=== PATIENT | female | born 1945 | race African-American/Black ===

== ENCOUNTER 2017-12-06 02:56 | Inpatient (IN) | payer MEDICARE ==
[2017-12-06] MEDS ORDERED: Lorazepam 2 MG/ML VIAL ONE (03:02)
[2017-12-06] MEDS ORDERED: Albuterol Sulfate 2.5 mg/3 ml Neb ONE (03:08)
[2017-12-06 03:24] LABS: Actual Bicarbonate (HCO3a) 25.2 mEq/L (22-26); CO2 Tension 49.4 mmHg (35.0-45.0); O2 Tension (PaO2) 137.2 mmHg (80.0-100.0); pH, Arterial 7.33 (7.35-7.45)
[2017-12-06 03:25] LABS: Analyzer IN Cardio ER; Base Excess (BEa) -1.2 mEq/L (0 (+/-) 2.5); Calcium, Ionized 1.2 mmol/L (1.12-1.30); Hemoglobin (Hb) 12.4 g/dL (12.0-16.0)
[2017-12-06 03:26] LABS: Puncture Site LRA
[2017-12-06 03:38] LABS: Eosinophils 4 % (0-10); Hemoglobin 12.3 g/dL (12.0-16.0); Lymphocytes 62 % (21-51); MDiff Complete? YES; Macrocytosis SLIGHT = 6-15 cells (100X) (0-5/hpf); Mean Corpuscular Hemoglobin 34.4 pg (27.0-31.0); Mean Platelet Volume 5.6 fL (7.4-10.4); Monocytes 5 % (0-10); Neutrophil 24 % (42-75); PLT Morphology Comment Appears Adequate; Platelet Count 378 thou/uL (130-400); RBC Distribution Width 11.3 % (11.5-14.5); Reactive Lymphocytes 5 % (0-10); Red Blood Cell (RBC) Count 3.57 mill/uL (4.20-5.40)
[2017-12-06 03:41] LABS: ALT (SGPT) 11 U/L (8-55); AST (SGOT) 18 U/L (5-34); Albumin 4.1 g/dL (3.4-4.8); Alkaline Phosphatase 103 U/L (40-150); Anion Gap 12 mmol/L (10-20); BUN (Urea Nitrogen) 13 mg/dL (9.8-20.1); Bilirubin, Total 0.5 mg/dL (0.2-1.2); Calc. Creatinine Clearance 0 mL/min (70-130); Calcium 9.1 mg/dL (7.8-10.44); Carbon Dioxide 27 mmol/L (23-31); Chloride 104 mmol/L (98-107); Estimated GFR-MDRD 81; Globulin 3.7 g/dL (2.4-3.5); Glucose 136 mg/dL (83-110); Potassium 3.5 mmol/L (3.5-5.1); Protein, Total 7.8 g/dL (6.0-8.3); Sodium 139 mmol/L (136-145)
[2017-12-06 03:44] LABS: CKMB 1.1 ng/mL (0-6.6); Troponin I Less than 0.010 ng/mL (< 0.028)
[2017-12-06 05:38] VITALS: BMI 15.8
[2017-12-06] MEDS ORDERED: Ondansetron HCl/PF 4 MG/2 ML Vial IVP PRN (06:04)
[2017-12-06] MEDS ORDERED: Ondansetron ODT 4 MG TAB PO PRN (06:04)
[2017-12-06] MEDS ORDERED: cloNIDine 0.1 MG TAB PO PRN (06:04)
[2017-12-06] MEDS ORDERED: hydrALAZINE 20 MG/ML VIAL SLOW IVP PRN (06:04)
[2017-12-06] MEDS ORDERED: Benzonatate 100 MG CAP PO PRN (06:04)
[2017-12-06] MEDS ORDERED: Acetaminophen 500 MG TAB PO PRN (06:04)
[2017-12-06] MEDS ORDERED: Mometasone/Formoterol 120 PUFF INHALER INH SCH (06:30)
--- NOTE | 2017-12-06 06:34 | HP ---
PRIMARY CARE PHYSICIAN: Dr. Quentin Russell at [facility]. CHIEF COMPLAINT: Shortness of breath. HISTORY OF PRESENT ILLNESS: This is a 72-year-old female who presents to [facility] emergency department complaining of sudden onset of shortness of breath at ho wi. The patient apparently was awakened from sleep. After experiencing the shortness of breath at [place] point EMS personnel were notified. The patient was apparently attempting to use her home nebuli zer for relief, but this was unsuccessful. The patient with a known history of chronic obstructive p ulmonary disease and asthma, but does not use home oxygen. EMS personnel arrived at which point the patient was placed on DuoNeb therapy x3, as well as treated with magnesium sulfate 2 grams and Solu-M edrol 125. The patient also received subcutaneous epinephrine en route. The patient was placed on B iPAP noninvasive mechanical ventilation in the emergency room. After a portable chest x-ray showed c hronic changes and hyperinflation of bilateral lung maier. The patient received additional albutero l sulfate and Ativan in the emergency room. The patient was initially noted tachypneic and hypoxic w ith tachycardia, improving with BiPAP noninvasive mechanical ventilation. The patient denied any spe cific fever, chills, exposure history or family members with illness. The patient denies any specifi c chest pain, jaw or left arm discomfort. The patient denied a productive cough, lower extremity swe lling, but the family has noted the patient's decreased activity tolerance becoming short of breath w ith minimal exertion. PAST MEDICAL HISTORY: 1. Acute/chronic hypoxic respiratory failure. 2. Chronic obstructive pulmonary disease. 3. Question of asthma. 4. Hypertension. PAST SURGICAL HISTORY: Reviewed and negative. CURRENT MEDICATIONS: Amlodipine 10 mg 1 tab p.o. daily. The rest of the home medications will need to be confirmed with family members in the a.m. ALLERGIES: No known drug allergies. FAMILY HISTORY: No inheritable diseases per patient report. SOCIAL HISTORY: No current alcohol, tobacco or illicit drug use. Accompanied by her son in the [facility] room. REVIEW OF SYSTEMS: The following complete review of systems was negative, unless otherwise mentioned in the HPI or below: Constitutional: Weight loss or gain, ability to conduct usual activities. Skin: Rash, itching. Eyes: Double vision, pain. ENT/Mouth: Nose bleeding, neck stiffness, pain, tenderness. Cardiovascular: Palpitations, dyspnea on exertion, orthopnea. Respiratory: Shortness of breath, wheezing, cough, hemoptysis, fever or night sweats. Gastrointestinal: Poor appetite, abdominal pain, heartburn, nausea, vomiting, constipation, or diarrhea. Genitourinary: Urgency, frequency, dysuria, nocturia. Musculoskeletal: Pain, swelling. Neurologic/Psychiatric: Anxiety, depression. Allergy/Immunologic: Skin rash, bleeding tendency. PHYSICAL EXAMINATION: VITAL SIGNS: On admission, blood pressure 131/73, pulse 100, respiratory rate 33, temperature 98 de grees Fahrenheit, O2 saturation 100% on BiPAP noninvasive mechanical ventilation. HEENT: Pupils are equal, round, and reactive to light and accommodation. Extraocular muscles are in tact. No scleral icterus, no conjunctival injection. Nares patent. OP is clear. Teeth in fair rep air. Oral mucosa dry appearing. NECK: Supple, no cervical adenopathy, no thyromegaly, no carotid bruits, no JVD appreciated. Cervic al spine with full active and passive range of motion. No meningeal signs appreciated. CHEST: Diminished breath sounds in bilateral lung maier with occasional expiratory wheezing. Prolo nged expiratory phase noted. CARDIOVASCULAR: S1, S2 with tachycardia. Heart sounds are distant. No gallop or rub appreciated. ABDOMEN: Flat, soft, nontender, nondistended. Bowel sounds are positive in all 4 quadrants. There is no hepatosplenomegaly, no abdominal bruits, no rebound or guarding appreciated. EXTREMITIES: Warm and dry with fair turgor. No clubbing, cyanosis or asymmetric edema appreciated. Generalized muscle atrophy noted. Pulses are palpable distally at the dorsalis pedis, posterior tib ial, and popliteal arteries bilaterally. Capillary refill less than 2 seconds. NEUROLOGIC: Cranial nerves II-XII are grossly intact. No focal or lateralizing signs appreciated. PERTINENT LABORATORY AND X-RAY FINDINGS: Sodium 139, potassium 3.5, chloride 104, CO2 of 27, BUN 13, creatinine 0.83, estimated GFR 81, glucose 136, calcium 9.1. LFTs within normal limits. Troponin I negative x1. BNP less than 10. Albumin 4.1. CBC showed a white blood cell count 8.0, hemoglobin 1 2, hematocrit 37, MCV 104, platelet count 378 with 24% neutrophils, 62% lymphocytes. ABG dated 12/06 showed a pH of 7.33, pCO2 of 49, pO2 137, bicarbonate 25, O2 saturation 99% on BiPAP noninvasiv e mechanical ventilation with FiO2 of 50%. Portable chest x-ray dated 12/06/2017 by my interpretati on shows hyperinflation of bilateral lung maier with flattening of the diaphragms. Chronic changes noted. No acute infiltrate identified. EKG dated 12/06/2017 by my interpretation sinus tachycardia with heart rates in the 100s. Normal R-wave progression noted in the precordial leads. Normal axis. No acute ST-T wave changes appreciated. ASSESSMENT AND PLAN: 1. Acute hypoxic respiratory failure. The patient will be admitted to the Intermediate Care Unit. We will continue oxygen supplementation to maintain O2 saturations greater than or equal to 90%. Wea n BiPAP noninvasive mechanical ventilation as clinically indicated. See management plan as outlined in #2. 2. Chronic obstructive pulmonary disease exacerbation. Continue oxygen supplementation as stated pr eviously, Solu-Medrol 40 mg IV q.6h., Dulera two puffs inhaled b.i.d., DuoNebs q.4h., Levaquin 750 m g p.o. daily. 3. Hypertension. Resume home blood pressure regimen once confirmed with family members. Clonidine and hydralazine p.r.n. systolic greater than or equal to 170. 4. Macrocytosis. We will check B12 and folate level in the a.m. No specific evidence of an acute a nemia. Likely chronic condition. 5. Prophylaxis. Sequential compression devices while in bed. Pepcid 20 mg p.o. b.i.d. Update Pneu movax vaccination prior to discharge. 6. Code status is full. Surrogate medical decision maker is the patient's son.
[2017-12-06] MEDS ORDERED: Spiriva 18 MCG CAP (Box of 5 Caps) INH SCH (07:00)
[2017-12-06] MEDS ORDERED: Ipratropium Bromide 2.5 ml Neb NEB SCH (07:00)
--- NOTE | 2017-12-06 08:26 | RAD ---
AP VIEW CHEST: HISTORY: Dyspnea. FINDINGS: AP view chest is obtained on 12/06/17. Comparison is made to previous exam from 12/15/15. AP view chest demonstrates aeration and air trapping compatible with changes of COPD. Some calcifica tion of the aorta is seen. Prominent interstitial markings seen throughout the lungs. Pulmonary vas cular congestion is seen. IMPRESSION: Air trapping and changes of chronic obstructive pulmonary disease with pulmonary vascular congestion also noted. No evidence of effusions seen. POS: [facility]
[2017-12-06] MEDS ORDERED: Prevnar 13-Val Conj/PF 0.5 ML SYRINGE IM ONE (09:00)
[2017-12-06] MEDS ORDERED: Famotidine 20 MG TAB PO SCH (09:00)
[2017-12-06] MEDS ORDERED: guaiFENesin ER 600 MG TAB PO SCH (11:00)
--- NOTE | 2017-12-06 12:56 | PDOC.PN ---
- Subjective Encounter Start Date: 12/06/17 Encounter Start Time: 11:00 Subjective: no sob, feels better, is off bipap - Objective Resuscitation Status: Resuscitation Status FULL:Full Resuscitation MAR Reviewed: Yes Vital Signs & Weight: Vital Signs (12 hours) Temp Pulse Resp BP Pulse Ox 12/06/17 12:53 97 16 96 12/06/17 11:35 98.7 F 95 25 H 113/64 96 12/06/17 10:01 87 16 95 12/06/17 08:00 97.0 F L 87 16 98 12/06/17 07:48 98.1 F 87 28 H 89/53 L 100 12/06/17 06:04 95 12/06/17 05:15 98.0 F 93 24 H 127/70 97 Weight Admit Weight 89 lb 9.6 oz Weight 89 lb 9.6 oz Result Diagrams: 12/06/17 03:06 12/06/17 03:06 Phys Exam - Physical Examination HEENT: PERRLA, moist MMs Neck: no JVD, supple Respiratory: no wheezing, no rales rhonchi+ Cardiovascular: RRR, no significant murmur Gastrointestinal: soft, non-tender, positive bowel sounds Musculoskeletal: no edema, pulses present Neurological: non-focal, moves all 4 limbs Psychiatric: normal affect, A&O x 3 Dx/Plan (1) Acute respiratory failure with hypoxia Code(s): J96.01 - ACUTE RESPIRATORY FAILURE WITH HYPOXIA Status: Acute (2) Asthma exacerbation Code(s): J45.901 - UNSPECIFIED ASTHMA WITH (ACUTE) EXACERBATION Status: Acute Qualifiers: Asthma severity: moderate (3) HTN (hypertension) Code(s): I10 - ESSENTIAL (PRIMARY) HYPERTENSION Status: Chronic Qualifiers: Hypertension type: essential hypertension Qualified Code(s): I10 - Essential (primary) hypertension - Plan is on levaquin, solumedrol, nebs -: hemostable -: is off bipap -: may tx to medical floor -: she has never smoked in her life, has h/o chr asthma * . Review of Systems - Medications/Allergies Allergies/Adverse Reactions: Allergies Allergy/AdvReac Type Severity Reaction Status Date / Time No Known Drug Allergies Allergy Verified 12/06/17 05:40 Medications: Current Medications Acetaminophen (Tylenol) 1,000 mg PO Q6H PRN PRN Reason: Headache/Fever or Mild Pain Albuterol/Ipratropium (Duoneb) 3 ml NEB [id number] PRN PRN Reason: SOB &/or Wheezing Albuterol/Ipratropium (Duoneb) 3 ml NEB [id number] [facility] Last Admin: 12/06/17 12:53 Dose: 3 ml Clonidine (Catapres) 0.1 mg PO Q4H PRN PRN Reason: Systolic BP > 180 Guaifenesin (Mucinex) 1,200 mg PO Q12HR [facility] Guaifenesin (Mucinex) 1,200 mg PO NOW [facility] Stop: 12/06/17 13:00 Last Admin: 12/06/17 12:09 Dose: 1,200 mg Hydralazine HCl (Apresoline) 10 mg SLOW IVP Q4H PRN PRN Reason: Systolic BP > 180 Levofloxacin (Levaquin) 750 mg PO DAILY [facility] Last Admin: 12/06/17 09:09 Dose: 750 mg Ondansetron HCl (Zofran Odt) 4 mg PO Q6H PRN PRN Reason: Nausea/Vomiting Ondansetron HCl (Zofran) 4 mg IVP Q6H PRN PRN Reason: Nausea/Vomiting Prednisone (Prednisone) 40 mg PO QAM[facility] Stop: 12/11/17 08:01
--- NOTE | 2017-12-06 13:27 | CON ---
DATE OF CONSULTATION: 12/06/2017 SERVICE: Pulmonary Medicine. REASON FOR CONSULTATION: IMCU patient. HISTORY OF PRESENT ILLNESS: The patient is a 72-year-old -[place] female with past medical history significant for COPD. She follows with pulmonary over at [facility]. She was in her usual state of health until she had a sudden onset of shortness of breath. This woke her up from sleep. She was brought to the emergency department where she was given some nebulized medications, steroids, and antibiotic. She was put on some oxygen. She had abrupt improvement in the way that she was breathing. At this point, she tells me that she has returned to her usual state of health and has no complaints of fevers, chills, nausea, vomiting or chest discomfort. Overnight, she did not have any significant events. She has been off BiPAP since being here. PAST MEDICAL HISTORY: 1. COPD. 2. Asthma, possible. 3. Hypertension. PAST SURGICAL HISTORY: None. ALLERGIES: No known drug allergies. MEDICATIONS: List of her inpatient medications were reviewed. Multiple updates were made including deescalating to p.o. antibiotics, decreasing steroids, and decreasing interval of breathing treatments. FAMILY HISTORY: Noncontributory. SOCIAL HISTORY: Negative for alcohol, tobacco, or illicit drug use currently. She has no exposure to chemicals, dust asbestos or tuberculosis. REVIEW OF SYSTEMS: General, head, ears, eyes, nose, throat, cardiovascular, respiratory, GI, , musculoskeletal, neurologic and skin is negative as stated in the HPI. PHYSICAL EXAMINATION: VITAL SIGNS: Afebrile, pulse 87, blood pressure 89/53, respirations 28, saturation 100% on 2 liters nasal cannula. GENERAL: The patient is awake, alert, no apparent distress. LUNGS: There is reduced air entry. Rhonchi and crackles are both present. There is also slightly prolonged expiratory phase with wheezing. HEART: Normal rate and regular. ABDOMEN: Soft, nontender, nondistended. Bowel sounds are positive. MUSCULOSKELETAL: No cyanosis or clubbing. There is no pitting in the bilateral lower extremities. NEUROLOGIC: Grossly nonfocal. LABORATORY DATA: WBC 8.0, hemoglobin 12.3, platelets 376,000. Neutrophil count is 124% and lymphocyte count is 62%. A pH 7.33, pCO2 49, pO2 137. This was on BiPAP with 50% FiO2. Basic metabolic profile and liver function studies are unremarkable. Cardiac enzymes negative x1. BNP is below the assay limit of 10. IMAGING: Chest x-ray demonstrates findings consistent with air trapping and pulmonary vascular congestion is apparent. No pleural effusions or other acute abnormalities identified. ASSESSMENT: 1. Chronic obstructive pulmonary disease with acute exacerbation, returned to baseline. 2. Acute hypoxic and hypercapnic respiratory failure, mild. PLAN: We will continue antibiotics, nebulized medications and steroids. I will deescalate all three of these things. From my perspective, she is stable for transition out of [facility] to the medical unit. Pulmonary will continue to follow along while she remains in this location. The Dulera will be suspended while she is on these IV medications. 70 minutes have been devoted to this patient in various activities. I personally reviewed all imaging studies and laboratory data noted within this document. For fifty percent of this time, I was interacting with the patient at the bedside or coordinating care with the care team. For the remainder of the time I was immediately available to the patient in the hospital unit. VENKAT
[2017-12-06] MEDS: guaiFENesin ER 600 MG TAB PO SCH (21:53)
[2017-12-07 05:26] LABS: Band 3 % (5-11); Hemoglobin 11.6 g/dL (12.0-16.0); Lymphocytes 31 % (21-51); MDiff Complete? YES; Mean Corpuscular HGB CONC 32.7 g/dL (32.0-36.0); Mean Platelet Volume 6.2 fL (7.4-10.4); Monocytes 9 % (0-10); Neutrophil 56 % (42-75); PLT Morphology Comment Appears Adequate; Platelet Count 376 thou/uL (130-400); RBC Distribution Width 11.5 % (11.5-14.5); Red Blood Cell (RBC) Count 3.39 mill/uL (4.20-5.40); White Blood Cell (WBC) Count 6.9 thou/uL (4.8-10.8)
[2017-12-07 05:28] LABS: Anion Gap 8 mmol/L (10-20); BUN (Urea Nitrogen) 15 mg/dL (9.8-20.1); Calc. Creatinine Clearance 42 mL/min (70-130); Calcium 9.4 mg/dL (7.8-10.44); Carbon Dioxide 28 mmol/L (23-31); Chloride 105 mmol/L (98-107); Estimated GFR-MDRD Greater than 90; Glucose 96 mg/dL (83-110); Potassium 3.8 mmol/L (3.5-5.1); Sodium 137 mmol/L (136-145)
[2017-12-07 05:58] LABS: Folate (Folic Acid) 5.7 ng/mL (7.0-31.4)
[2017-12-07 07:28] VITALS: BP 136/74; TEMP 98.4
[2017-12-07] MEDS: guaiFENesin ER 600 MG TAB PO SCH (07:33)
[2017-12-07] MEDS ORDERED: predniSONE 20 MG TAB PO SCH (08:00)
[2017-12-07] MEDS ORDERED: Folic Acid 1 MG TAB PO SCH (09:00)
--- NOTE | 2017-12-07 10:11 | PRG ---
DATE OF SERVICE: 12/07/2017 SERVICE: Pulmonary Medicine. INTERVAL HISTORY: The patient is doing well. She indicates to me that she is back to her usual state of health. She is breathing comfortably. She is off of oxygen. There were no overnight events. PHYSICAL EXAMINATION: VITAL SIGNS: Afebrile, pulse 90, blood pressure 136/74, respirations 20, saturation 95% on room air. GENERAL: The patient is awake, alert, no apparent distress. LUNGS: Decent air entry bilaterally. There is minimal prolongation of the expiratory phase. There are minimal crackles present in the bibasilar region, but this much improved. No rhonchi. HEART: Normal rate, regular. ABDOMEN: Soft, nontender, nondistended. Bowel sounds are positive. MUSCULOSKELETAL: No cyanosis or clubbing. SKIN: Tenting throughout. GENITOURINARY: No Fan. NEUROLOGIC: Grossly nonfocal. LABORATORY DATA: WBC 6.9, hemoglobin 11.6, platelets 376,000. Band count is only 3%. Lymphocyte count has improved to 31%. Basic metabolic profile is completely unremarkable. Folate 5.7. B12 is 331. ASSESSMENT: 1. Acute hypoxic and hypercapnic respiratory failure. 2. Chronic obstructive pulmonary disease with acute exacerbation, returned to baseline. 3. Macrocytic anemia. PLAN: Antibiotics, nebulized medications and steroids can be continued. The steroids, antibiotics will be discontinued after a total duration of 5 days. From my perspective, she is stable for transition out of the hospital. Folate will be initiated for the low levels. She will need to resume her home inhalers in the outpatient setting. She can be formally evaluated for COPD in that location and consider for long-acting therapy. VENKAT
--- NOTE | 2017-12-08 11:05 | DIS ---
DATE OF DISCHARGE: 12/07/2017 DISCHARGE DISPOSITION: Home. FOLLOWUP: 1. Follow up with primary care physician, Dr. Bermudez at [facility]. 2. Follow up with Pulmonary, Dr. Reno after 1-2 weeks. ALLERGIES: No known drug allergies. DISCHARGE MEDICATIONS: Folic acid 1 mg twice a day, Levaquin 500 mg daily for the next 3 days, predn isone taper. All other home medications were resumed. BRIEF HOSPITAL COURSE: The patient is a 72-year-old female with COPD who presented to the hospital w ith shortness of breath. Please refer to the history and physical dated 12/06/2017 for further detai ls. The patient was admitted to the hospital with a diagnosis of acute hypoxic respiratory failure second erika to chronic obstructive pulmonary disease exacerbation. She was started on noninvasive positive p ressure ventilation and was monitored in the intermediate care unit. She showed good response with s teroids, nebulizer treatments, and antibiotics. She was transferred to the medical floor today. Torajendra sandoval, the patient has been cleared by Pulmonary for discharge. FINAL DIAGNOSES: 1. Acute hypoxic and hypercapnic respiratory failure secondary to chronic obstructive pulmonary dise ase exacerbation, improved. 2. Hypertension. 3. Folic acid deficiency. Folic acid was 5.7. 4. Chronic kidney disease stage 2. 5. Moderate protein calorie malnutrition. SIGNIFICANT LABORATORY DATA AND IMAGING DATA: 1. ABG showed pH 7.33 with pCO2 of 49.4, pO2 of 137.2. 2. Folic acid was 5.7. Vitamin B12 331. 3. Troponins were normal. 4. Sodium was 139, potassium was 3.5, chloride of 104, bicarbonate 27. 5. D-dimer was negative. 6. CBC showed WBC 8.0 with hemoglobin 12.3, hematocrit 37.2, and platelet count of 378. 7. Chest x-ray was negative for infiltrate. It showed changes consistent with COPD with possible pu lmonary vascular congestion. Total time coordinating the discharge of this patient was 33 minutes. Prescriptions were sent to [facility]. The patient was extensively counseled to be compliant with nebulizer treatmen ts.
== END 2017-12-07 14:59 | disposition home or self-care (01) | DRG 189 ==
LOC: ERS 02:56 → IMCU/EMU 04:29 → T4-A 12:19
PROVIDERS: ADMIT Family Medicine; ATTEND Family Medicine
PROC: 5A09357 Assistance with Respiratory Ventilation, Less than 24 Consecutive Hours, Continuous Positive Airway Pressure (ICD-10-PCS; principal; 2017-12-06)
DX: J96.01 Acute respiratory failure with hypoxia (principal); E44.0 Moderate protein-calorie malnutrition; D64.9 Anemia, unspecified; J44.1 Chronic obstructive pulmonary disease with (acute) exacerbation; J96.02 Acute respiratory failure with hypercapnia; I12.9 Hypertensive chronic kidney disease with stage 1 through stage 4 chronic kidney disease, or unspecified chronic kidney disease; N18.2 Chronic kidney disease, stage 2 (mild)
CPT/HCPCS: 36415; 71045; 80048; 80053; 82553; 82607; 82746; 82805; 83880; 84484; 85007; 85025; 85027; 85379; 93005; 94640; 94660; 96374; G8978-GP-CK; G8979-GP-CK; G8980-GP-CK; J2060; J7506; J7611; J7620

== ENCOUNTER 2017-12-30 10:42 | Inpatient (IN) | payer MEDICARE ==
[2017-12-30] MEDS ORDERED: methylPREDNISolone Sod Succ/PF 125 MG/2 ML VIAL ONE (11:20)
[2017-12-30 11:28] LABS: #Basophils 0.1 thou/uL (0.0-0.2); #Eosinphils 0.5 thou/uL (0.0-0.7); #Lymphocytes 2.4 thou/uL (1.20-3.40); #Monocytes 0.5 thou/uL (0.11-0.59); #Neutrophils 1.9 thou/uL (1.40-6.50); %Eosinophils 9.8 % (0.0-10.0); %Lymphocytes 44.4 % (21.0-51.0); %Monocytes 8.9 % (0.0-10.0); %Neutrophils 35.8 % (42.0-75.0); Hemoglobin 13.2 g/dL (12.0-16.0); Mean Corpuscular HGB CONC 34.1 g/dL (32.0-36.0); Mean Corpuscular Hemoglobin 34.9 pg (27.0-31.0); Mean Platelet Volume 6.4 fL (7.4-10.4); Platelet Count 404 thou/uL (130-400); RBC Distribution Width 11.9 % (11.5-14.5); Red Blood Cell (RBC) Count 3.79 mill/uL (4.20-5.40); White Blood Cell (WBC) Count 5.3 thou/uL (4.8-10.8)
[2017-12-30 11:53] LABS: CKMB 1.2 ng/mL (0-6.6); Troponin I Less than 0.010 ng/mL (< 0.028)
[2017-12-30] MEDS ORDERED: ISOVUE-370 76%-LOCM 1 ML ONE (12:14)
[2017-12-30 13:18] LABS: Albumin 4.4 g/dL (3.4-4.8)
[2017-12-30 13:19] LABS: Chloride 101 mmol/L (98-107); Magnesium 2.3 mg/dL (1.6-2.6); Potassium 4.2 mmol/L (3.5-5.1); Sodium 136 mmol/L (136-145)
[2017-12-30 13:20] LABS: Calcium 9.8 mg/dL (7.8-10.44)
[2017-12-30 13:21] LABS: Globulin 3.8 g/dL (2.4-3.5); Glucose 100 mg/dL (83-110); Protein, Total 8.2 g/dL (6.0-8.3)
[2017-12-30 13:22] LABS: Anion Gap 15 mmol/L (10-20); Bilirubin, Total 0.7 mg/dL (0.2-1.2); Carbon Dioxide 24 mmol/L (23-31)
[2017-12-30 13:23] LABS: Alkaline Phosphatase 84 U/L (40-150)
[2017-12-30 13:24] LABS: Calc. Creatinine Clearance 0 mL/min (70-130); Estimated GFR-MDRD 86
[2017-12-30 13:25] LABS: BUN (Urea Nitrogen) 12 mg/dL (9.8-20.1)
[2017-12-30 13:26] LABS: ALT (SGPT) 11 U/L (8-55); AST (SGOT) 18 U/L (5-34)
[2017-12-30 13:27] LABS: CK (CPK) 90 U/L (29-168)
--- NOTE | 2017-12-30 13:42 | RAD ---
SINGLE VIEW OF THE CHEST: Registered Radiation Therapist 12/05/17. History Shortness of breath with tachypnea. FINDINGS: A single view of the chest shows a normal-size cardiomediastinal silhouette with atherosclerotic calc ifications seen in the aorta. There is no evidence of consolidation, mass, or pleural effusion. Deg enerative changes and sclerotic curvature of the spine are seen. IMPRESSION: No evidence of acute cardiopulmonary disease. POS: [facility]
--- NOTE | 2017-12-30 15:36 | CT ---
CT PULMONARY ANGIOGRAM WITH IV CONTRAST AND 3D POSTPROCESSING 12/30/17 HISTORY: Shortness of breath. Chest pain FINDINGS: There is good contrast opacification of the pulmonary arterial vasculature without filling defects to suggest pulmonary embolism. The thoracic aorta is well opacified without aneurysmal dissection. No pleural or pericardial effusions are seen. There is biapical scarring. No focal areas of consolidatio n or lung masses are identified. There are degenerative changes in the spine. IMPRESSION: No CT evidence of pulmonary embolism. POS: [facility]
[2017-12-30] MEDS ORDERED: Loratadine 10 MG TAB PO PRN (15:43)
[2017-12-30] MEDS ORDERED: hydrALAZINE 20 MG/ML VIAL SLOW IVP PRN (15:43)
[2017-12-30] MEDS ORDERED: Senokot 8.6 MG TAB PO PRN (15:43)
[2017-12-30] MEDS ORDERED: Calcium Carbonate 500 MG ChewTAB PO PRN (15:43)
[2017-12-30] MEDS ORDERED: Benzonatate 100 MG CAP PO PRN (15:43)
[2017-12-30] MEDS ORDERED: Bisacodyl 5 MG TAB PO PRN (15:43)
[2017-12-30] MEDS ORDERED: Mag-Al 1200 mg/1200 mg/30 ML UDCUP PO PRN (15:43)
[2017-12-30] MEDS ORDERED: traMADol HCl 50 MG TAB PO PRN (15:43)
[2017-12-30] MEDS ORDERED: Lorazepam 1 MG TAB PO PRN (15:43)
[2017-12-30] MEDS ORDERED: Acetaminophen 325 MG TAB PO PRN (15:43)
[2017-12-30] MEDS ORDERED: Nitroglycerin 0.4 MG TAB (25 Tab Bottle) SL PRN (15:43)
[2017-12-30] MEDS ORDERED: Ondansetron HCl/PF 4 MG/2 ML Vial IVP PRN (15:43)
[2017-12-30] MEDS ORDERED: cloNIDine 0.1 MG TAB PO PRN (15:43)
[2017-12-30] MEDS ORDERED: Diabetic Tussin 200 MG/10 ML UDCUP PO PRN (15:43)
[2017-12-30 16:19] VITALS: BMI 17.9
[2017-12-30 16:41] LABS: Lactic Acid 2.3 mmol/L (0.5-2.2)
--- NOTE | 2017-12-30 17:57 | HP ---
DATE OF ADMISSION: 12/30/2017 PRIMARY CARE PHYSICIAN: Dr. Bermudez at [facility]. CHIEF COMPLAINT: Worsening shortness of breath. HISTORY OF PRESENTING ILLNESS: Ms. Suárez is a sweet 72-year-old female with past medical history o f COPD, questionable asthma and hypertension, who presented to the emergency room with the above-ment ioned complaint. History is mainly obtained by the patient herself who was a little bit of a poor hi storian because she is extremely hard of hearing and is tachypneic at this time. Electronic medical records have been reviewed. She was recently admitted to our facility on 12/06/2017 till 12/07/2017 with similar complaints and was diagnosed with acute COPD exacerbation. She was treated with nebuliz ers, steroids, and empiric antibiotics and was seen by Dr. Reno from Pulmonary Medicine as well. She was discharged home in a stable condition at that time. Today, she returns back to the emergency room with same complaints. She states that she has been hav ing shortness of breath since last night with some atypical chest pain. She has a nebulizer and inha ler at home which she has been using, but has not been able to get any relief from them. She also re ports that she feels that she has some sort of chest infection as she complains of lots of mucus that is coming up. She reports that every time she tries to eat or drink, she starts to cough. She sonya es any lower extremity swelling. She denies any orthopnea or PND. She denies any jaw claudication o r paraesthesias of the arm. She denies any fever, chills, or sick contacts. In the emergency room upon presentation, she was hypoxic with saturation of 85% on room air. She was started on BiPAP after being diagnosed with acute COPD exacerbation. She was given nebulizers and s teroids in the emergency room as well and is now being admitted for further evaluation and care. Sin ce she has been up on the floor, she has been weaned off of BiPAP and is actually feeling much better , just on nasal cannula. Because of recurrent admissions for the same complaint, she has undergone a CT angio to rule out pulm onary embolism and it is negative for the same. PAST MEDICAL HISTORY: 1. Hypertension. 2. COPD versus asthma versus both. 3. History of hypoxic respiratory failures in the past, requiring intubations. 4. Chronic kidney disease stage 2. 5. Folic acid deficiency. 6. Moderate protein calorie malnutrition. PAST SURGICAL HISTORY: Reviewed and negative. ALLERGIES: No known medication allergies. FAMILY HISTORY: No significant family history per the patient report. SOCIAL HISTORY: No history of drug, tobacco or alcohol abuse. She lives with her son. HOME MEDICATION: Not updated yet, but she was discharged on the following medications few weeks ago; Protonix 40 mg daily, DuoNebs as needed, folic acid 1 mg daily, Symbicort 160/4.5 one inhalation b.i .d., amlodipine 10 mg daily. REVIEW OF SYSTEMS: The following complete review of systems was negative, unless otherwise mentioned in the HPI or below: Constitutional: Weight loss or gain, ability to conduct usual activities. Skin: Rash, itching. Eyes: Double vision, pain. ENT/Mouth: Nose bleeding, neck stiffness, pain, tenderness. Cardiovascular: Palpitations, dyspnea on exertion, orthopnea. Respiratory: Shortness of breath, wheezing, cough, hemoptysis, fever or night sweats. Gastrointestinal: Poor appetite, abdominal pain, heartburn, nausea, vomiting, constipation, or diarr hea. Genitourinary: Urgency, frequency, dysuria, nocturia. Musculoskeletal: Pain, swelling. Neurologic/Psychiatric: Anxiety, depression. Allergy/Immunologic: Skin rash, bleeding tendency. It is negative except as those mentioned in the history and physical. LABORATORY DATA AND IMAGING DATA: Her CBC is unremarkable. Platelet count is elevated to 404. Seru m chemistries unremarkable. Lactic acid is 2.5. Cardiac enzymes and BNP is normal. Chest x-ray by my review has no evidence to suggest pulmonary edema, effusion or infiltrate. CT angio of the thorax is negative for pulmonary embolism or any masses. No consolidation seen. A 12-lead EKG reviewed by myself shows sinus tachycardia at heart rate 103 beats per minute without any acute ST or T-wave emmanuel nges. PHYSICAL EXAMINATION: VITAL SIGNS: Most recent vital signs; temperature 97.9, pulse of 100, respirations 34, saturating 99 % on 3 liters nasal cannula and blood pressure 129/70. GENERAL: No acute distress. She is still tachypneic, but not hypoxic. Awake, alert, oriented x3. HEENT: Mucous membrane is moist and pink. No oropharyngeal exudate or erythema. Head is normocepha lic, atraumatic. Pupils are equal, reactive to light and accommodation. Extraocular movement intact . NECK: Supple without any lymphadenopathy, JVD or bruit. CHEST: Shows decreased breath sounds bilaterally with scattered wheezes on both lungs. She was trip oding when she came to the emergency room, but not anymore. Rate and rhythm is regular without any m urmur, rubs or gallops. ABDOMEN: Soft, nontender, nondistended with positive bowel sounds. EXTREMITIES: Free of any cyanosis, clubbing, or edema. NEUROLOGIC: Examination is nonfocal. SKIN: Free of any rashes or bruises. Feels warm and dry to touch. PSYCHIATRIC: Normal affect. Code status: FULL CODE. Discussed with the patient. IMPRESSION AND PLAN: 1. Acute hypoxic respiratory failure. This is secondary to acute chronic obstructive pulmonary dise ase exacerbation. PE and ACS have been ruled out. The patient does give history of possible aspirat ion and might be having recurrence on an aspiration. 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 She was then weaned off of BiPAP and we will continue with oxygen for now. We will also consult speech therapist for speech, s wallowing, but possible modified barium study to evaluate for silent aspiration. 2. Chronic obstructive pulmonary disease exacerbation. With oxygen supplementation, Solu-Medrol, Du laura, nebs and empiric antibiotics. 3. Hypertension. Resume home medications once confirmed. Add p.r.n. oral clonidine and IV hydralaz ine with parameters for high blood pressure. 4. Macrocytosis. Continue folic acid. 5. Code status: FULL CODE. 6. Deep venous thrombosis and gastrointestinal prophylaxis. DISPOSITION: Ms. Suárez is currently being admitted to the hospital with acute respiratory failure due to acute chronic obstructive pulmonary disease exacerbation. Estimated length of stay is at as t 2-3 midnights. Further management will depend upon her clinical course.
[2017-12-30] MEDS: Mometasone/Formoterol 120 PUFF INHALER INH SCH (18:58)
[2017-12-30] MEDS: guaiFENesin ER 600 MG TAB PO SCH (20:59)
[2017-12-30] MEDS ORDERED: Famotidine 20 MG TAB PO SCH (21:00)
[2017-12-31 04:13] LABS: #Lymphocytes 0.7 thou/uL (1.20-3.40); #Neutrophils 2.1 thou/uL (1.40-6.50); %Basophils 0.9 % (0.0-1.0); %Eosinophils 0.3 % (0.0-10.0); %Monocytes 0.9 % (0.0-10.0); %Neutrophils 72.9 % (42.0-75.0); Hemoglobin 12.4 g/dL (12.0-16.0); Mean Corpuscular HGB CONC 33.3 g/dL (32.0-36.0); Mean Corpuscular Hemoglobin 34.1 pg (27.0-31.0); Mean Platelet Volume 5.8 fL (7.4-10.4); Platelet Count 394 thou/uL (130-400); RBC Distribution Width 11.3 % (11.5-14.5); Red Blood Cell (RBC) Count 3.65 mill/uL (4.20-5.40); White Blood Cell (WBC) Count 2.9 thou/uL (4.8-10.8)
[2017-12-31 04:32] LABS: Anion Gap 14 mmol/L (10-20); BUN (Urea Nitrogen) 18 mg/dL (9.8-20.1); Calc. Creatinine Clearance 44 mL/min (70-130); Calcium 9.2 mg/dL (7.8-10.44); Carbon Dioxide 22 mmol/L (23-31); Chloride 102 mmol/L (98-107); Estimated GFR-MDRD 82; Glucose 139 mg/dL (83-110); Potassium 4.3 mmol/L (3.5-5.1); Sodium 134 mmol/L (136-145)
[2017-12-31] MEDS: Mometasone/Formoterol 120 PUFF INHALER INH SCH ×2 (07:03→18:16)
[2017-12-31] MEDS: Enoxaparin Sodium 40 MG/0.4 ML SYRINGE SC SCH (10:32)
[2017-12-31] MEDS: guaiFENesin ER 600 MG TAB PO SCH ×2 (10:33→21:06)
--- NOTE | 2017-12-31 14:01 | PDOC.PN ---
- Subjective Encounter Start Date: 12/31/17 Encounter Start Time: 14:00 Subjective: feels much better.breathing easier -: no new complaints.still feels that she has cough w food /wATER - Objective MAR Reviewed: Yes Vital Signs & Weight: Vital Signs (12 hours) Temp Pulse Pulse Pulse Resp BP BP 12/31/17 11:14 97.9 F 100 20 12/31/17 10:14 111 H 20 12/31/17 09:23 103 H 126 H 124/65 115/79 12/31/17 08:00 97.3 F L 99 19 12/31/17 07:40 97.3 F L 99 19 12/31/17 07:30 99 113 H 111/64 113/76 12/31/17 07:03 101 H 18 12/31/17 03:57 97.2 F L 98 30 H 12/31/17 02:38 93 22 H BP Pulse Ox Pulse Ox Pulse Ox 12/31/17 11:14 101/53 L 95 12/31/17 10:14 98 12/31/17 09:23 96 93 L 12/31/17 08:00 100 12/31/17 07:40 111/64 100 12/31/17 07:30 98 93 L 12/31/17 07:03 100 12/31/17 03:57 116/64 96 12/31/17 02:38 98 Weight Weight 101 lb 6.602 oz I&O: 12/30/17 12/31/17 01/01/18 06:59 06:59 06:59 Intake Total 950 Output Total 550 Balance 400 Result Diagrams: 12/31/17 03:42 12/31/17 03:42 Additional Labs: labs reviewed EKG Reviewed by me: Yes (NSR on monitor) Phys Exam - Physical Examination Constitutional: NAD thin looking,very hard of hearing HEENT: PERRLA, moist MMs, sclera anicteric, oral pharynx no lesions Neck: no JVD Respiratory: no wheezing, no rales, no rhonchi, clear to auscultation bilateral Cardiovascular: RRR, no significant murmur, no rub Gastrointestinal: soft, non-tender, no distention, positive bowel sounds Musculoskeletal: no edema, pulses present Neurological: non-focal, normal sensation, moves all 4 limbs Psychiatric: normal affect, A&O x 3 Skin: no rash Dx/Plan (1) COPD exacerbation Code(s): J44.1 - CHRONIC OBSTRUCTIVE PULMONARY DISEASE W (ACUTE) EXACERBATION Status: Acute (2) Protein calorie malnutrition Code(s): E46 - UNSPECIFIED PROTEIN-CALORIE MALNUTRITION Status: Acute (3) Acute respiratory failure with hypoxia Code(s): J96.01 - ACUTE RESPIRATORY FAILURE WITH HYPOXIA Status: Acute (4) HTN (hypertension) Code(s): I10 - ESSENTIAL (PRIMARY) HYPERTENSION Status: Chronic Qualifiers: Hypertension type: essential hypertension Qualified Code(s): I10 - Essential (primary) hypertension - Plan PT/OT, speech therapy, respiratory therapy, incentive spirometry, DVT proph w/ lovenox, DVT proph w/SCDs clinically better.stable on O2 by nasal canula -: cont nebs,steroids,dulera,mucinex etc -: nutritionalist consulted for MBS.possible silent aspiration -: no indication of ABx for now.PCCM recs requested -: HD stable. Ok to transfer to medical * . Review of Systems - Review of Systems Constitutional: negative: fever, chills, sweats, weakness, malaise, other Respiratory: Cough, SOB with Excertion, Sputum. negative: Dry, Shortness of Breath, Hemoptysis, Pleuritic Pain, Wheezing Cardiovascular: negative: chest pain, palpitations, orthopnea, paroxysmal nocturnal dyspnea, edema, light headedness, other Gastrointestinal: negative: Nausea, Vomiting, Abdominal Pain, Diarrhea, Constipation, Melena, Hematochezia, Other Genitourinary: negative: Dysuria, Frequency, Incontinence, Hematuria, Retention , Other Musculoskeletal: negative: Neck Pain, Shoulder Pain, Arm Pain, Back Pain, Hand Pain, Leg Pain, Foot Pain, Other Skin: negative: Rash, Lesions, Regulo, Bruising, Other Neurological: negative: Weakness, Numbness, Incoordination, Change in Speech, Confusion, Seizures, Other - Medications/Allergies Allergies/Adverse Reactions: Allergies Allergy/AdvReac Type Severity Reaction Status Date / Time No Known Drug Allergies Allergy Verified 12/30/17 16:21 Medications: Current Medications Acetaminophen (Tylenol) 650 mg PO Q4H PRN PRN Reason: Headache/Fever or Pain Al Hydroxide/Mg Hydroxide (Maalox) 30 ml PO Q6H PRN PRN Reason: Heartburn or Indigestion Albuterol/Ipratropium (Duoneb) 3 ml NEB Q2H PRN PRN Reason: SOB &/or Wheezing Albuterol/Ipratropium (Duoneb) 3 ml NEB [id number] [facility] Last Admin: 12/31/17 10:14 Dose: 3 ml Amlodipine Besylate (Norvasc) 10 mg PO DAILY [facility] Benzonatate (Tessalon) 100 mg PO Q4H PRN PRN Reason: Cough Bisacodyl (Dulcolax) 10 mg PO DAILYPRN PRN PRN Reason: Constipation Calcium Carbonate (Tums) 1,000 mg PO Q4H PRN PRN Reason: Heartburn or Indigestion Clonidine (Catapres) 0.1 mg PO Q4H PRN PRN Reason: Systolic BP > 160 Enoxaparin Sodium (Lovenox) 40 mg SC 0900 [facility] Last Admin: 12/31/17 10:32 Dose: 40 mg Folic Acid (Folvite) 1 mg PO BID [facility] Guaifenesin (Robitussin Sf) 200 mg PO Q4H PRN PRN Reason: Cough Guaifenesin (Mucinex) 1,200 mg PO Q12HR [facility] Last Admin: 12/31/17 10:33 Dose: 1,200 mg Hydralazine HCl (Apresoline) 10 mg SLOW IVP Q4H PRN PRN Reason: Systolic BP > 170 Loratadine (Claritin) 10 mg PO DAILYPRN PRN PRN Reason: Sinus Symptoms Lorazepam (Ativan) 1 mg PO Q4H PRN PRN Reason: Anxiety/Agitation Methylprednisolone Sodium Succinate (Solu-Medrol) 40 mg IVP Q6HR [facility] Last Admin: 12/31/17 10:32 Dose: 40 mg Mometasone Furoate/Formoterol Fumar (Dulera 200 Mcg/5 Mcg Inhaler) 2 puff INH BID-RT [facility] Last Admin: 12/31/17 07:03 Dose: 2 puff Nitroglycerin (Nitrostat) 0.4 mg SL Q5MIN PRN PRN Reason: Chest Pain Ondansetron HCl (Zofran) 4 mg IVP Q6H PRN PRN Reason: Nausea/Vomiting Pantoprazole Sodium (Protonix) 40 mg PO DAILY [facility] Senna (Senokot) 2 tab PO HSPRN PRN PRN Reason: Constipation Tramadol HCl (Ultram) 50 mg PO Q4H PRN PRN Reason: Moderate Pain (4-6)
--- NOTE | 2017-12-31 14:50 | RAD ---
MODIFIED BARIUM SWALLOW IN THE PRESENCE OF A SPEECH THERAPIST: Date: 12/31/17 HISTORY: Dysphagia, unspecified, feeding difficulties. FINDINGS/IMPRESSION: Laryngeal penetration is seen without evidence of tammi aspiration. No persistent pooling of contrast is seen in the vallecula or piriform sinuses. Please see recommendations of the speech therapist for further management. POS: JORGE
--- NOTE | 2017-12-31 17:08 | CON ---
DATE OF CONSULTATION: 12/31/2017 Total of 70 minutes of time spent with the patient, of that greater than 50% was spent with the patie nt or on the patient's unit. HISTORY OF PRESENT ILLNESS: A 72-year-old female, who was admitted yesterday to the hospital with in creasing shortness of breath. She is a patient of Dr. Quentin Russell, who is a international freight forwarder over at [facility]. She was here few weeks ago with a similar admission, at the time, she was taken care of by my partner, Dr. Reno. Yesterday, she came in with increasing shortness of breath, apparently was on BiPAP all night long. She feels better this morning. She says she is back to her baseline. She has had cough and congesti on that is also better. PAST MEDICAL HISTORY: 1. COPD/asthma. 2. Hypertension. 3. Chronic kidney disease, stage 2. 4. Folic acid deficiency. 5. Protein-calorie malnutrition. PAST SURGICAL HISTORY: None. ALLERGIES: None. MEDICATIONS PRIOR TO ADMISSION: ProAir HFA metered dose inhaler as needed, Symbicort 160/4.5 two puf fs twice daily, amlodipine 10 mg daily, prednisone 20 mg daily, pantoprazole 40 mg daily, levofloxaci n 500 mg daily, DuoNeb 4 times daily, folate 1 mg twice daily. SOCIAL HISTORY: She is a never smoker, does not consume alcohol, does not use illicit drugs. FAMILY MEDICAL HISTORY: Unremarkable. REVIEW OF SYSTEMS: No fever, chills, nausea, vomiting, hematemesis, melena, hematochezia, hematuria or dysuria. PHYSICAL EXAMINATION: VITAL SIGNS: Temperature 97.3, pulse 98, respirations 19, O2 sat 100% on 3 liters, blood pressure 11 1/64. GENERAL: She is awake and alert, in no distress. HEENT: Pupils react. Sclerae anicteric. Oropharynx clear. NECK: Without adenopathy or JVD. LUNGS: Clear without wheezing, rhonchi or rales. ABDOMEN: Soft, nontender, nondistended. EXTREMITIES: No clubbing, cyanosis or edema. NEUROLOGIC: Intact. LABORATORY DATA: White blood cell count 2.9, hemoglobin 12, hematocrit 37.4, platelet count 394. So dium 134, potassium 4.3, chloride 102, CO2 of 22, BUN 18, creatinine 0.8, glucose 139, lactate 2.3. IMAGING: CT pulmonary angiogram was negative. Her chest x-ray demonstrates hyperinflation without e vidence of mass, effusion, or infiltrate. She has prominent pulmonary arteries. ASSESSMENT: 1. Asthma/chronic obstructive pulmonary disease with exacerbation. 2. Acute hypoxic respiratory failure, which is improved. PLAN: Agree with nebulization treatments and IV steroids. If she can remain off the BiPAP until thi s afternoon, then I think it is safe to transfer to the floor. She will continue on long-acting beta agonist and inhaled corticosteroids.
[2017-12-31] MEDS: Folic Acid 1 MG TAB PO SCH (21:06)
[2018-01-01] MEDS: Mometasone/Formoterol 120 PUFF INHALER INH SCH ×2 (07:52→18:56)
[2018-01-01] MEDS: guaiFENesin ER 600 MG TAB PO SCH ×2 (08:31→20:22)
[2018-01-01] MEDS: Folic Acid 1 MG TAB PO SCH ×2 (08:32→20:22)
[2018-01-01] MEDS: Enoxaparin Sodium 40 MG/0.4 ML SYRINGE SC SCH (08:32)
[2018-01-01] MEDS: Amlodipine 10 MG TAB PO SCH (08:32)
--- NOTE | 2018-01-01 13:21 | PRG ---
DATE OF SERVICE: 01/01/2018 SUBJECTIVE: The patient is doing better and had no acute complaints today. PHYSICAL EXAMINATION: VITAL SIGNS: Temperature is 98.5, pulse 84, respirations 15, O2 sat 99% on 2 liters. HEENT: Unremarkable. NECK: No JVD. LUNGS: Clear without wheezing or rhonchi. CARDIAC: S1 and S2 regular. ABDOMEN: Soft. EXTREMITIES: No edema. ASSESSMENT: 1. Chronic obstructive pulmonary disease with exacerbation. 2. Acute hypoxic respiratory failure, which is improved. PLAN: She appears much better than on admission. I would suspect she could probably go home by [place]. She is continuing aggressive nebulization treatments. Her steroids can be changed to oral med ication.
--- NOTE | 2018-01-01 14:57 | PDOC.PN ---
- Subjective Encounter Start Date: 01/01/18 Encounter Start Time: 11:00 Subjective: breathing better -: no chest pain - Objective MAR Reviewed: Yes Vital Signs & Weight: Vital Signs (12 hours) Temp Pulse Resp BP BP Pulse Ox 01/01/18 10:46 84 15 99 01/01/18 08:32 88 108/70 01/01/18 07:51 88 16 99 01/01/18 07:25 98.5 F 89 18 108/70 99 01/01/18 07:12 98.5 F 89 20 99 Weight Admit Weight 101 lb 6.602 oz Weight 101 lb 6.602 oz I&O: 12/31/17 01/01/18 01/02/18 06:59 06:59 06:59 Intake Total 950 300 Output Total 550 Balance 400 300 Result Diagrams: 12/31/17 03:42 12/31/17 03:42 Phys Exam - Physical Examination HEENT: PERRLA, moist MMs Neck: no JVD, supple Respiratory: no wheezing, no rales rhonchi+ Cardiovascular: RRR, no significant murmur Gastrointestinal: soft, non-tender, positive bowel sounds Musculoskeletal: no edema, pulses present Neurological: non-focal, moves all 4 limbs Psychiatric: normal affect, A&O x 3 Dx/Plan (1) Acute respiratory failure with hypoxia Code(s): J96.01 - ACUTE RESPIRATORY FAILURE WITH HYPOXIA Status: Resolved (2) Asthma exacerbation Code(s): J45.901 - UNSPECIFIED ASTHMA WITH (ACUTE) EXACERBATION Status: Acute Qualifiers: Asthma severity: moderate (3) HTN (hypertension) Code(s): I10 - ESSENTIAL (PRIMARY) HYPERTENSION Status: Chronic Qualifiers: Hypertension type: essential hypertension Qualified Code(s): I10 - Essential (primary) hypertension (4) Protein calorie malnutrition Code(s): E46 - UNSPECIFIED PROTEIN-CALORIE MALNUTRITION Status: Chronic Qualifiers: Protein-calorie malnutrition severity: moderate Qualified Code(s): E44.0 - Moderate protein-calorie malnutrition - Plan is on steroids, nebs -: to amb as tolerated -: adv diet as tolerated per speech advice -: dc plan in am if stable * . Review of Systems - Medications/Allergies Allergies/Adverse Reactions: Allergies Allergy/AdvReac Type Severity Reaction Status Date / Time No Known Drug Allergies Allergy Verified 12/30/17 16:21 Medications: Current Medications Acetaminophen (Tylenol) 650 mg PO Q4H PRN PRN Reason: Headache/Fever or Pain Al Hydroxide/Mg Hydroxide (Maalox) 30 ml PO Q6H PRN PRN Reason: Heartburn or Indigestion Albuterol/Ipratropium (Duoneb) 3 ml NEB Q2H PRN PRN Reason: SOB &/or Wheezing Albuterol/Ipratropium (Duoneb) 3 ml NEB [id number] [facility] Last Admin: 01/01/18 10:46 Dose: 3 ml Amlodipine Besylate (Norvasc) 10 mg PO DAILY [facility] Last Admin: 01/01/18 08:32 Dose: 10 mg Benzonatate (Tessalon) 100 mg PO Q4H PRN PRN Reason: Cough Bisacodyl (Dulcolax) 10 mg PO DAILYPRN PRN PRN Reason: Constipation Calcium Carbonate (Tums) 1,000 mg PO Q4H PRN PRN Reason: Heartburn or Indigestion Clonidine (Catapres) 0.1 mg PO Q4H PRN PRN Reason: Systolic BP > 160 Enoxaparin Sodium (Lovenox) 40 mg SC 0900 [facility] Last Admin: 01/01/18 08:32 Dose: 40 mg Folic Acid (Folvite) 1 mg PO BID [facility] Last Admin: 01/01/18 08:32 Dose: 1 mg Guaifenesin (Robitussin Sf) 200 mg PO Q4H PRN PRN Reason: Cough Guaifenesin (Mucinex) 1,200 mg PO Q12HR [facility] Last Admin: 01/01/18 08:31 Dose: 1,200 mg Hydralazine HCl (Apresoline) 10 mg SLOW IVP Q4H PRN PRN Reason: Systolic BP > 170 Loratadine (Claritin) 10 mg PO DAILYPRN PRN PRN Reason: Sinus Symptoms Lorazepam (Ativan) 1 mg PO Q4H PRN PRN Reason: Anxiety/Agitation Mometasone Furoate/Formoterol Fumar (Dulera 200 Mcg/5 Mcg Inhaler) 2 puff INH BID-RT [facility] Last Admin: 01/01/18 07:52 Dose: 2 puff Nitroglycerin (Nitrostat) 0.4 mg SL Q5MIN PRN PRN Reason: Chest Pain Ondansetron HCl (Zofran) 4 mg IVP Q6H PRN PRN Reason: Nausea/Vomiting Pantoprazole Sodium (Protonix) 40 mg PO DAILY [facility] Last Admin: 01/01/18 08:32 Dose: 40 mg Prednisone (Prednisone) 20 mg PO BID [facility] Senna (Senokot) 2 tab PO HSPRN PRN PRN Reason: Constipation Tramadol HCl (Ultram) 50 mg PO Q4H PRN PRN Reason: Moderate Pain (4-6)
[2018-01-01] MEDS: predniSONE 20 MG TAB PO SCH (20:22)
[2018-01-02] MEDS: Mometasone/Formoterol 120 PUFF INHALER INH SCH (07:29)
[2018-01-02 07:36] VITALS: TEMP 98
[2018-01-02] MEDS: Amlodipine 10 MG TAB PO SCH (08:43)
[2018-01-02] MEDS: Folic Acid 1 MG TAB PO SCH (08:43)
[2018-01-02] MEDS: guaiFENesin ER 600 MG TAB PO SCH (08:43)
[2018-01-02] MEDS: predniSONE 20 MG TAB PO SCH (08:43)
[2018-01-02] MEDS: Enoxaparin Sodium 40 MG/0.4 ML SYRINGE SC SCH (08:44)
--- NOTE | 2018-01-02 11:38 | PRG ---
DATE OF SERVICE: 01/02/2018 SUBJECTIVE: She is feeling well, has no complaints. PHYSICAL EXAMINATION: VITAL SIGNS: Temperature 98.0, pulse 90, respirations 16, O2 saturation 92% on 2 liters. HEENT: Unremarkable. NECK: No JVD. CHEST: Clear. CARDIAC: S1 and S2 regular. ABDOMEN: Soft. EXTREMITIES: No edema. ASSESSMENT: Chronic obstructive pulmonary disease exacerbation. PLAN: It looks like she is probably going home. No further pulmonary recommendations. We will sign off. Please recall if further assistance needed.
[2018-01-02 11:47] VITALS: BP 113/65
--- NOTE | 2018-01-02 12:02 | PDOC.PN ---
- Subjective Encounter Start Date: 01/02/18 Encounter Start Time: 11:00 Subjective: breathing better, is amb to restroom and back -: has nebulizer and medicines for it at home - Objective MAR Reviewed: Yes Vital Signs & Weight: Vital Signs (12 hours) Temp Pulse Resp BP BP Pulse Ox 01/02/18 11:00 98.0 F 91 18 113/65 98 01/02/18 10:42 90 16 92 L 01/02/18 08:43 83 110/66 01/02/18 07:35 98.0 F 83 22 H 110/66 100 01/02/18 07:29 98.6 F 84 14 01/02/18 07:27 84 14 98 01/02/18 02:26 89 12 Weight Admit Weight 101 lb 6.602 oz Weight 101 lb 6.602 oz I&O: 01/01/18 01/02/18 01/03/18 06:59 06:59 06:59 Intake Total 300 340 Balance 300 340 Result Diagrams: 12/31/17 03:42 12/31/17 03:42 Phys Exam - Physical Examination HEENT: PERRLA, moist MMs Neck: no JVD, supple Respiratory: no wheezing, no rales Cardiovascular: RRR, no significant murmur Gastrointestinal: soft, non-tender, positive bowel sounds Musculoskeletal: no edema, pulses present Neurological: non-focal, moves all 4 limbs Psychiatric: normal affect, A&O x 3 Dx/Plan (1) Acute respiratory failure with hypoxia Code(s): J96.01 - ACUTE RESPIRATORY FAILURE WITH HYPOXIA Status: Resolved (2) Asthma exacerbation Code(s): J45.901 - UNSPECIFIED ASTHMA WITH (ACUTE) EXACERBATION Status: Acute Qualifiers: Asthma severity: moderate (3) HTN (hypertension) Code(s): I10 - ESSENTIAL (PRIMARY) HYPERTENSION Status: Chronic Qualifiers: Hypertension type: essential hypertension Qualified Code(s): I10 - Essential (primary) hypertension (4) Protein calorie malnutrition Code(s): E46 - UNSPECIFIED PROTEIN-CALORIE MALNUTRITION Status: Chronic Qualifiers: Protein-calorie malnutrition severity: moderate Qualified Code(s): E44.0 - Moderate protein-calorie malnutrition - Plan hemostable -: dc pt home -: steroid taper -: to f/u with pcp in 1 week * .
--- NOTE | 2018-01-02 21:29 | DIS ---
DATE OF ADMISSION: 12/30/2017. DATE OF DISCHARGE: 01/02/2018. DISCHARGE DISPOSITION: To home. PRIMARY DISCHARGE DIAGNOSES: 1. Acute respiratory failure with hypoxia, resolved. 2. Acute asthma exacerbation, resolving. SECONDARY DISCHARGE DIAGNOSIS: Hypertension. PROCEDURES DONE DURING HOSPITALIZATION: CT angio chest done on the day of admission showed no evidence of PE, no focal areas of consolidation or mass were seen. There was biapical scarring on the CAT scan. Modified barium swallow done showed laryngeal penetration without evidence of tammi aspiration. No persistent pooling of contrast was seen in the vallecula or pyriform sinuses. H&H 12 and 37, platelet count 394. BUN 18 and creatinine 0.8. Troponin x2 negative. INPATIENT CONSULTS: Dr. Barton for pulmonology. DISCHARGE PLAN: The patient to follow up with primary care physician in one week and Dr. Barton as advised. BRIEF COURSE DURING HOSPITALIZATION: The patient initially got admitted on the with complaints of shortness of breath and wheezing. She was essentially admitted for asthma exacerbation and was placed on nebulizers along with steroids. She was initially placed on BiPAP in the ER and was weaned off quick. She has responded well to steroids and nebulizers. The patient needs to continue steroid taper as prescribed and follow up with primary care physician in one week and Dr. Barton as advised. She is ambulating in the room and eating well. Please see a [id number] documentation on [facility] for the day of discharge. MTDD
== END 2018-01-02 12:56 | disposition home or self-care (01) | DRG 189 ==
LOC: ERS 10:42 → IMCU/EMU 13:55 → T4-B 12-31 15:30
PROVIDERS: ADMIT Internal Medicine; ATTEND Internal Medicine
DX: J96.01 Acute respiratory failure with hypoxia (principal); J44.1 Chronic obstructive pulmonary disease with (acute) exacerbation; J45.901 Unspecified asthma with (acute) exacerbation; E44.0 Moderate protein-calorie malnutrition; I12.9 Hypertensive chronic kidney disease with stage 1 through stage 4 chronic kidney disease, or unspecified chronic kidney disease; N18.2 Chronic kidney disease, stage 2 (mild); D75.89 Other specified diseases of blood and blood-forming organs
CPT/HCPCS: 36415; 71045; 71275; 74230; 80048; 80053; 82553; 83605; 83735; 83880; 84484; 85025; 93005; 94640; 96365; 96375; G8978-GP-CI; G8979-GP-CI; G8980-GP-CI; G8987-GO-CI; G8988-GO-CI; G8989-GO-CI; G8996-GN-CK; G8996-GN-CM; G8997-GN-CJ; G8998-GN-CJ; J1650; J1956; J2920; J2930; J7506; J7620

== ENCOUNTER 2018-05-28 09:18 | Inpatient (IN) | payer MEDICARE ==
[2018-05-28] MEDS ORDERED: Lorazepam 2 MG/ML VIAL ONE ×2 (09:39)
[2018-05-28] MEDS ORDERED: Magnesium 2 GM/50 ML 2 GM in Premix Bag 1 BAG IVPB SCH (09:45)
[2018-05-28 09:58] LABS: Band 7 % (5-11); Eosinophils 9 % (0-10); Hemoglobin 13.3 g/dL (12.0-16.0); Lymphocytes 50 % (21-51); MDiff Complete? YES; Macrocytosis SLIGHT = 6-15 cells (100X) (0-5/hpf); Mean Corpuscular HGB CONC 32.9 g/dL (32.0-36.0); Mean Corpuscular Hemoglobin 34.6 pg (27.0-31.0); Mean Platelet Volume 6.1 fL (7.4-10.4); Monocytes 9 % (0-10); Neutrophil 25 % (42-75); Platelet Count 436 thou/uL (130-400); Red Blood Cell (RBC) Count 3.83 mill/uL (4.20-5.40); White Blood Cell (WBC) Count 8.2 thou/uL (4.8-10.8)
[2018-05-28 10:01] LABS: CKMB 2.9 ng/mL (0-6.6); Troponin I Less than 0.010 ng/mL (< 0.028)
[2018-05-28 10:02] LABS: ALT (SGPT) 15 U/L (8-55); AST (SGOT) 21 U/L (5-34); Albumin 4.3 g/dL (3.4-4.8); Alkaline Phosphatase 91 U/L (40-150); Anion Gap 13 mmol/L (10-20); BUN (Urea Nitrogen) 10 mg/dL (9.8-20.1); Bilirubin, Total 0.5 mg/dL (0.2-1.2); CK (CPK) 172 U/L (29-168); Calc. Creatinine Clearance 0 mL/min (70-130); Calcium 9.5 mg/dL (7.8-10.44); Carbon Dioxide 26 mmol/L (23-31); Chloride 101 mmol/L (98-107); Estimated GFR-MDRD Greater than 90; Globulin 3.9 g/dL (2.4-3.5); Glucose 101 mg/dL (83-110); Potassium 4.3 mmol/L (3.5-5.1); Protein, Total 8.2 g/dL (6.0-8.3); Sodium 136 mmol/L (136-145)
[2018-05-28] MEDS ORDERED: Ondansetron HCl/PF 4 MG/2 ML Vial ONE (11:06)
--- NOTE | 2018-05-28 11:10 | RAD ---
FRONTAL VIEW CHEST: Date: 05/28/18 COMPARISON: 12/30/17. INDICATION: Crackles, difficulty breathing, dyspnea. FINDINGS: There is hyperinflation of the lungs with interstitial prominence bilaterally. No lobar consolidation , effusion, or pneumothorax. Cardiac silhouette is within normal limits of size. There is vascular ca lcification. IMPRESSION: COPD. POS: JORGE
[2018-05-28] MEDS ORDERED: Bisacodyl 5 MG TAB PO PRN (11:43)
[2018-05-28] MEDS ORDERED: Acetaminophen 325 MG TAB PO PRN (11:43)
[2018-05-28] MEDS ORDERED: traMADol HCl 50 MG TAB PO PRN (11:43)
[2018-05-28] MEDS ORDERED: Nitroglycerin 0.4 MG TAB (25 Tab Bottle) SL PRN (11:43)
[2018-05-28] MEDS ORDERED: Ondansetron HCl/PF 4 MG/2 ML Vial IVP PRN (11:43)
[2018-05-28] MEDS ORDERED: Calcium Carbonate 500 MG ChewTAB PO PRN (11:43)
[2018-05-28] MEDS ORDERED: Benzonatate 100 MG CAP PO PRN (11:43)
[2018-05-28] MEDS ORDERED: Loratadine 10 MG TAB PO PRN (11:43)
[2018-05-28] MEDS ORDERED: cloNIDine 0.1 MG TAB PO PRN (11:43)
[2018-05-28] MEDS ORDERED: Senokot S 8.6-50 MG TAB PO PRN (11:43)
[2018-05-28] MEDS ORDERED: hydrALAZINE 20 MG/ML VIAL SLOW IVP PRN (11:43)
[2018-05-28] MEDS: Mometasone/Formoterol 120 PUFF INHALER INH SCH ×2 (12:29→18:33)
[2018-05-28] MEDS ORDERED: Enoxaparin Sodium 40 MG/0.4 ML SYRINGE SC SCH (12:30)
--- NOTE | 2018-05-28 12:30 | HP ---
PRIMARY CARE PHYSICIAN: Dr. Emil Bermudez. CHIEF COMPLAINT: Shortness of breath. HISTORY OF PRESENTING ILLNESS: Mr. Suárez is a 72-year-old female with known history of COPD and hy pertension, who presented to the ER with above-mentioned complaint. History is mainly obtained by di scussion with emergency room physician and electronic medical record review. The patient is currentl y on BiPAP and very somnolent and not able to provide much of the history. According to the ER physician, the patient called EMS for worsening shortness of breath. EMS found h er oxygen saturation to be low in the 80%. She received 2 DuoNebs and CPAP by the EMS with improveme nt in his saturation. She reported she had been short of breath for the last day or so. It is assoc iated with productive cough. She was also having some chest pain this morning. She was brought to [facility] ER with CPAP and was transitioned to BiPAP and was given one nebulizer, magnesium with improvement in her symptoms. Because she was very tachypneic and anxious, she received Ativan 1 dose in the ER and that is why she is very somnolent at the time of examination. She also had transient drop in her blood pressure shortly after the Ativan, which has since not improved. Internal Medicine team has ty solano called to admit the patient to the hospital for acute COPD exacerbation on BiPAP. The patient has been admitted twice earlier this year in November and December 2017 with similar complaints. No other history is obtainable at this time. No family is at bedside. PAST MEDICAL HISTORY: 1. COPD. 2. Hypertension. 3. History of hypoxic respiratory failure in the past, requiring intubation. 4. Chronic kidney disease stage 2. 5. Folic acid deficiency. 6. Moderate protein calorie malnutrition. PAST SURGICAL HISTORY: Reviewed and negative. ALLERGIES: No known medication allergies. FAMILY HISTORY: No reported family history for this patient in the EMR. The patient is not able to provide history. SOCIAL HISTORY: When she woken up, she reported to me that she lives with her son, brother and cousi n. No history of drug, tobacco or alcohol abuse. HOME MEDICATIONS: I do not have the list of her home medications at this time. Her family is not at the bedside and ER record also has not listed her home medications. These will be confirmed with [facility] when she is upstairs on the floor. CODE STATUS: FULL CODE. Discussed with the patient briefly discussed as the patient is kind of somn olence and on BiPAP, but she did not say yes when asked about the resuscitation. REVIEW OF SYSTEMS: Limited review of system because of the patient's somnolence and her being on BiP AP. She does complain of some epigastric pain and points to her upper abdomen. She does report she yes when I asked her if her breathing is any better for now. LABORATORY DATA: CBC shows WBCs 8.2, hemoglobin 13.3, platelet count of 136. Serum chemistries unre markable. Creatine kinase 172. CK-MB and troponin normal. Lactic acid normal. Chest x-ray by my review has no evidence to suggest pleural effusion, edema or infiltrate. Does show evidence of hyper inflation consistent with COPD. There is interstitial prominence bilaterally as well. Twelve lead E KG by my review shows sinus tachycardia at 105 beats per minute and right axis deviation. PHYSICAL EXAMINATION: VITAL SIGNS: Upon presentation, blood pressure 169/91, pulse of 112, saturating 99% on BiPAP, blood pressure 114/80, pulse of 87. GENERAL: She appears frail, weak and older than her stated age. She is in no acute distress. She i s drowsy, but arousable to loud stimulus as she is extremely hard of hearing. HEENT: Limited due to the BiPAP mask. His head is normocephalic, atraumatic. Pupils equal, reactiv e to light and accommodation. NECK: Supple without any lymphadenopathy, JVD or bruit. CHEST: Evaluation showed loud rhonchi bilaterally as well as bibasilar rales and diminished breath s ounds bilaterally. Currently on BiPAP mask. Rate and rhythm is regular without any murmur, rubs or gallops. ABDOMEN: Soft, nontender, nondistended with positive bowel sounds. Mild epigastric tenderness is no ticed. No rebound, guarding or rigidity. EXTREMITIES: Free of any cyanosis, clubbing, or edema. NEUROLOGIC: Nonfocal. She is weak in the legs, but is able to follow simple commands. SKIN: Free of any rashes or bruises. Feels warm and dry to touch. PSYCHIATRIC: Normal affect. IMPRESSION AND PLAN: 1. Acute hypoxic respiratory failure. This is secondary to acute chronic obstructive pulmonary dise ase exacerbation. She will be admitted and treated with oxygen, nebulizers scheduled as well as p.r. n. along with IV steroids and empiric oral antibiotics. We will also provide long-acting inhaled thiago roids at high dose along with long-acting inhaled beta agonists. We will request consultation with [facility], Dr. Reno was on-call today. She will be admitted with BiPAP to [facility] for now. We will titrate the BiPAP down as tolerated. Influenza testing was done and was negati ve in the emergency room. She is already symptomatically better. We will continue to trend serial c ardiac enzymes, though this does not appear clinically to be an ACS. 2. Acute chronic obstructive pulmonary disease exacerbation as above. 3. Hypertension, currently on the lower side after the Ativan. We will hold her antihypertensives, but we will confirm the medications from the pharmacy. Use p.r.n. antihypertensives. 4. Code status: FULL CODE, discussed with the patient. 5. Macrocytosis. Resume folic acid, if she is still taking it. 6. Deep venous thrombosis and gastrointestinal prophylaxis. DISPOSITION: Mr. Suárez is currently being admitted to the hospital with acute hypoxic respiratory failure requiring BiPAP due to chronic obstructive pulmonary disease exacerbation. Estimated length of stay is at least 2-3 midnight. Further management will depend upon her clinical course.
[2018-05-28 12:39] VITALS: BMI 23.3
[2018-05-28 13:41] LABS: Troponin I Less than 0.010 ng/mL (< 0.028)
[2018-05-28 15:39] LABS: Troponin I 0.012 ng/mL (< 0.028)
--- NOTE | 2018-05-28 19:12 | CON ---
DATE OF CONSULTATION: 05/28/2018 SERVICE: Pulmonary Medicine. REASON FOR CONSULTATION: Respiratory failure. HISTORY OF PRESENT ILLNESS: The patient is a 72-year-old -Citizen Of [place] female with past medical history significant for asthma. She was in her usual state of health until one day prior to admission, when she started having increasing wheezing, shortness of breath, and tightness in the chest. She went to bed. She has a hard time sleeping. Ultimately, she came into the hospital early this morning. She has been coughing up some phlegm, but she did not look at it. She denies having any hemoptysis, fevers, chills, nausea, or vomiting. She has had a poor appetite for about 24-48 hours at this point. She does not recall being around any sick people. PAST MEDICAL HISTORY: 1. Asthma. 2. Hypertension. 3. Chronic kidney disease, stage 2. 4. Folic acid deficiency. 5. Protein-calorie malnutrition, moderate. PAST SURGICAL HISTORY: None. ALLERGIES: No known drug allergies. FAMILY HISTORY: Noncontributory. SOCIAL HISTORY: Negative for any tobacco, alcohol, or illicit drug use. She is a lifelong nonsmoker. She has no exposure to chemicals, dust, asbestos, or tuberculosis. ALLERGIES: No known drug allergies. MEDICATIONS: List of her inpatient medications were reviewed and modified. REVIEW OF SYSTEMS: General, head, ears, eyes, nose, throat, cardiovascular, respiratory, GI, , musculoskeletal, neurologic, and skin is negative except as mentioned in the HPI. PHYSICAL EXAMINATION: VITAL SIGNS: Afebrile, pulse 93, blood pressure 121/64, respirations 18, saturation 96% on 3 liters nasal cannula. GENERAL: The patient is awake, alert, in no apparent distress. LUNGS: She has excellent air entry. There is slightly prolonged expiratory phase. Rhonchi and wheezing are both present. There are no crackles. HEART: Normal rate, regular. ABDOMEN: Soft, nontender, nondistended. Bowel sounds are positive. MUSCULOSKELETAL: No cyanosis or clubbing. There is no pitting in the bilateral lower extremities. NEUROLOGIC: Grossly nonfocal. LABORATORY DATA: WBC 8.2, hemoglobin 13.3, platelets 436,000. Of note, her eosinophil count represents 9% of her white cells. Cardiac enzymes are negative x3. Lactate is negative. Comprehensive metabolic profile is completely unremarkable. Influenza A and B is negative. ASSESSMENT: 1. Asthma with acute exacerbation. 2. Possible cognitive impairment. DISCUSSION AND PLAN: We will deescalate her steroids down to prednisone 40 mg p.o. daily. She is supposed to be on an inhaled corticosteroid in the outpatient setting, but cannot report that she is doing so. She indicates that the only puffer that she uses is ProAir. She was placed on BiPAP in the Emergency Department, but she has never required it since being here. I see absolutely no evidence of respiratory difficulties. She is talking in full sentences and not requiring any accessory muscle use. She is quite debilitated , so involve Physical Therapy and make certain we get her into a chair multiple times on a daily basis. Pulmonary Critical Care will continue to follow along this location, but ultimately, she will need to address which inhaler she should be on with her primary hiv counselor on discharge from the hospital. 70 minutes have been devoted to this patient in various activities. I personally reviewed all imaging studies and laboratory data noted within this document. For fifty percent of this time, I was interacting with the patient at the bedside or coordinating care with the care team. For the remainder of the time I was immediately available to the patient in the hospital unit. VEKNAT
[2018-05-28] MEDS: Amoxicillin/Potassium Clav 875 MG TAB PO SCH (21:17)
[2018-05-28] MEDS: Famotidine/PF 20 mg/2ml Vial SLOW IVP SCH (21:17)
[2018-05-28] MEDS: Diabetic Tussin 200 MG/10 ML UDCUP PO PRN (21:17)
[2018-05-29] MEDS ORDERED: Benzonatate 100 MG CAP PO PRN (06:46)
[2018-05-29] MEDS ORDERED: Spiriva 18 MCG CAP (Box of 5 Caps) INH SCH (07:00)
[2018-05-29] MEDS: Mometasone/Formoterol 120 PUFF INHALER INH SCH ×2 (08:28→19:30)
[2018-05-29] MEDS: Amoxicillin/Potassium Clav 875 MG TAB PO SCH ×2 (09:28→20:06)
[2018-05-29] MEDS: Enoxaparin Sodium 40 MG/0.4 ML SYRINGE SC SCH (09:29)
[2018-05-29] MEDS: predniSONE 20 MG TAB PO SCH (09:29)
[2018-05-29] MEDS: Famotidine/PF 20 mg/2ml Vial SLOW IVP SCH ×2 (09:29→20:06)
--- NOTE | 2018-05-29 11:28 | PDOC.PN ---
- Subjective Encounter Start Date: 05/29/18 Encounter Start Time: 11:26 Subjective: feels very good. denies any SOb at rest. -: reprots progressive weakness -: Good appetite. no N/V/D.No CP - Objective Resuscitation Status: Resuscitation Status FULL:Full Resuscitation MAR Reviewed: Yes Vital Signs & Weight: Vital Signs (12 hours) Temp Pulse Resp BP Pulse Ox 05/29/18 09:00 97.7 F 112 H 22 H 111/60 93 L 05/29/18 08:30 95 05/29/18 08:28 80 16 95 05/29/18 04:00 97.9 F 73 18 111/65 95 05/29/18 00:18 88 16 98 05/29/18 00:00 98.1 F 77 16 108/73 97 Weight Weight 108 lb 0.424 oz I&O: 05/28/18 05/29/18 05/30/18 06:59 06:59 06:59 Intake Total 480 Balance 480 Result Diagrams: 05/28/18 09:26 05/28/18 09:26 Phys Exam - Physical Examination Constitutional: NAD HEENT: PERRLA, moist MMs, sclera anicteric, oral pharynx no lesions Neck: no nodes, no JVD, supple, full ROM Respiratory: no wheezing, no rales, no rhonchi, clear to auscultation bilateral Cardiovascular: RRR, no significant murmur, no rub Gastrointestinal: soft, non-tender, no distention, positive bowel sounds Musculoskeletal: no edema, pulses present Neurological: non-focal, normal sensation, moves all 4 limbs Psychiatric: normal affect, A&O x 3 Skin: no rash Dx/Plan (1) COPD exacerbation Code(s): J44.1 - CHRONIC OBSTRUCTIVE PULMONARY DISEASE W (ACUTE) EXACERBATION Status: Acute (2) HTN (hypertension) Code(s): I10 - ESSENTIAL (PRIMARY) HYPERTENSION Status: Chronic Qualifiers: (3) Protein calorie malnutrition Code(s): E46 - UNSPECIFIED PROTEIN-CALORIE MALNUTRITION Status: Chronic Qualifiers: (4) Acute respiratory failure with hypoxia Code(s): J96.01 - ACUTE RESPIRATORY FAILURE WITH HYPOXIA Status: Resolved - Plan continue antibiotics, PT/OT, respiratory therapy, incentive spirometry, out of bed/ambulate, DVT proph w/SCDs Off of Bipap.clinically better -: cont empiric ABx, duonebs,Steroids -: rehab eval -: OT/PT while in house. -: am labs.cardiac Enzymes negative * . Review of Systems - Review of Systems Constitutional: weakness, malaise. negative: fever, chills, sweats, other ENT: negative: Ear Pain, Ear Discharge, Nose Pain, Nose Discharge, Nose Congestion, Mouth Pain, Mouth Swelling, Throat Pain, Throat Swelling, Other Respiratory: Cough, SOB with Excertion. negative: Dry, Shortness of Breath, Hemoptysis, Pleuritic Pain, Sputum, Wheezing Cardiovascular: negative: chest pain, palpitations, orthopnea, paroxysmal nocturnal dyspnea, edema, light headedness, other Gastrointestinal: negative: Nausea, Vomiting, Abdominal Pain, Diarrhea, Constipation, Melena, Hematochezia, Other Genitourinary: negative: Dysuria, Frequency, Incontinence, Hematuria, Retention , Other Musculoskeletal: negative: Neck Pain, Shoulder Pain, Arm Pain, Back Pain, Hand Pain, Leg Pain, Foot Pain, Other Skin: negative: Rash, Lesions, Regulo, Bruising, Other Neurological: negative: Weakness, Numbness, Incoordination, Change in Speech, Confusion, Seizures, Other - Medications/Allergies Allergies/Adverse Reactions: Allergies Allergy/AdvReac Type Severity Reaction Status Date / Time No Known Drug Allergies Allergy Verified 05/28/18 12:39 Medications: Current Medications Acetaminophen (Tylenol) 650 mg PO Q4H PRN PRN Reason: Headache/Fever/Mild Pain (1-3) Albuterol/Ipratropium (Duoneb) 3 ml NEB [id number] PRN PRN Reason: SOB &/or Wheezing Albuterol/Ipratropium (Duoneb) 3 ml NEB [id number] [facility] Last Admin: 05/29/18 08:28 Dose: 3 ml Amoxicillin/Clavulanate Potassium (Augmentin) 875 mg PO BID [facility] Last Admin: 05/29/18 09:28 Dose: 875 mg Benzonatate (Tessalon) 100 mg PO TIDPRN PRN PRN Reason: Cough Bisacodyl (Dulcolax) 10 mg PO DAILYPRN PRN PRN Reason: Constipation Calcium Carbonate (Tums) 1,000 mg PO Q4H PRN PRN Reason: Heartburn or Indigestion Clonidine (Catapres) 0.1 mg PO Q4H PRN PRN Reason: Systolic BP > 160 Enoxaparin Sodium (Lovenox) 40 mg SC 0900 [facility] Last Admin: 05/29/18 09:29 Dose: 40 mg Famotidine (Pepcid) 20 mg SLOW IVP Q12HR [facility] Last Admin: 05/29/18 09:29 Dose: 20 mg Guaifenesin (Robitussin Sf) 200 mg PO Q4H PRN PRN Reason: Cough Last Admin: 05/28/18 21:17 Dose: 200 mg Hydralazine HCl (Apresoline) 10 mg SLOW IVP Q4H PRN PRN Reason: Systolic BP > 170 Loratadine (Claritin) 10 mg PO DAILYPRN PRN PRN Reason: Sinus Symptoms Mometasone Furoate/Formoterol Fumar (Dulera 200 Mcg/5 Mcg Inhaler) 1 puff INH BID-RT [facility] Last Admin: 05/29/18 08:28 Dose: 1 puff Nitroglycerin (Nitrostat) 0.4 mg SL Q5MIN PRN PRN Reason: Chest Pain Ondansetron HCl (Zofran) 4 mg IVP Q6H PRN PRN Reason: Nausea/Vomiting Prednisone (Prednisone) 40 mg PO QAM-WM [facility] Stop: 06/07/18 08:01 Last Admin: 05/29/18 09:29 Dose: 40 mg Senna/Docusate Sodium (Senokot S) 2 tab PO BID PRN PRN Reason: Constipation Sodium Chloride (Flush - Normal Saline) 10 ml IVF Q12HR [facility] Last Admin: 05/29/18 09:29 Dose: 10 ml Sodium Chloride (Flush - Normal Saline) 10 ml IVF PRN PRN PRN Reason: Saline Flush Tramadol HCl (Ultram) 50 mg PO Q4H PRN PRN Reason: Moderate Pain (4-6)
--- NOTE | 2018-05-29 14:41 | PRG ---
DATE OF SERVICE: 05/29/2018 SERVICE: Pulmonary Medicine. INTERVAL HISTORY: The patient is doing outstanding from a respiratory standpoint. She is breathing comfortable. She is back on room air. She is coughing well. She bring a good sputum. Otherwise, t here has been no interval change to her condition. She actually feels much improved compared to pascual guillermo. PHYSICAL EXAMINATION: VITAL SIGNS: Afebrile, pulse 81, blood pressure 114/70, respirations 20, saturation 94% on room air. GENERAL: The patient is awake, alert, no apparent distress. LUNGS: Excellent air entry with no prolonged expiratory phase. There are some rhonchi present. Min imal wheezing is there. The rhonchi clear with cough. There are no crackles. HEART: Normal rate, regular. ABDOMEN: Soft, nontender, nondistended. Bowel sounds are positive. MUSCULOSKELETAL: No cyanosis or clubbing. There is no pitting in the bilateral lower extremities. NEUROLOGIC: Grossly nonfocal. LABORATORY DATA: Troponins are negative x3. Influenza A and B is unremarkable. ASSESSMENT: 1. Acute hypoxic respiratory failure, resolved. 2. Asthma with acute exacerbation. DISCUSSION AND PLAN: The patient can go out on 10-day course of steroids. Antibiotics can be interr upted after 5-7 days. At this point, she is stable for transition to the medical unit. Pulmonary Cr itical Care will continue to follow along for the time being, but my suspicion is that she will be re laci for discharge tomorrow assuming she is doing well from a respiratory standpoint.
[2018-05-29] MEDS: Diabetic Tussin 200 MG/10 ML UDCUP PO PRN (16:22)
[2018-05-30 04:45] LABS: #Basophils 0.1 thou/uL (0.0-0.2); #Eosinphils 0.1 thou/uL (0.0-0.7); #Lymphocytes 2.6 thou/uL (1.20-3.40); #Monocytes 0.7 thou/uL (0.11-0.59); #Neutrophils 3.5 thou/uL (1.40-6.50); %Basophils 1.1 % (0.0-1.0); %Eosinophils 1.5 % (0.0-10.0); %Lymphocytes 37.2 % (21.0-51.0); %Monocytes 9.5 % (0.0-10.0); %Neutrophils 50.7 % (42.0-75.0); Hemoglobin 11.9 g/dL (12.0-16.0); Mean Corpuscular HGB CONC 33.1 g/dL (32.0-36.0); Mean Corpuscular Hemoglobin 34.8 pg (27.0-31.0); Mean Platelet Volume 6.2 fL (7.4-10.4); Platelet Count 417 thou/uL (130-400); Red Blood Cell (RBC) Count 3.43 mill/uL (4.20-5.40)
[2018-05-30 05:05] LABS: Anion Gap 11 mmol/L (10-20); BUN (Urea Nitrogen) 21 mg/dL (9.8-20.1); Calc. Creatinine Clearance 52 mL/min (70-130); Calcium 8.7 mg/dL (7.8-10.44); Carbon Dioxide 26 mmol/L (23-31); Chloride 105 mmol/L (98-107); Estimated GFR-MDRD Greater than 90; Glucose 86 mg/dL (83-110); Sodium 138 mmol/L (136-145)
[2018-05-30] MEDS: Mometasone/Formoterol 120 PUFF INHALER INH SCH (07:04)
[2018-05-30] MEDS: Amoxicillin/Potassium Clav 875 MG TAB PO SCH (08:19)
[2018-05-30] MEDS: Famotidine/PF 20 mg/2ml Vial SLOW IVP SCH (08:19)
[2018-05-30] MEDS: Enoxaparin Sodium 40 MG/0.4 ML SYRINGE SC SCH (08:19)
[2018-05-30] MEDS: predniSONE 20 MG TAB PO SCH (08:19)
[2018-05-30 12:07] VITALS: BP 132/71; TEMP 97.3
--- NOTE | 2018-05-30 20:39 | PRG ---
DATE OF SERVICE: 05/30/2018 SERVICE: Pulmonary Medicine. INTERVAL HISTORY: The patient is doing outstanding from a respiratory standpoint. She is breathing very comfortable. She is on room air. She indicates that she is back to baseline and has no specifi c complaints currently. She is only coughing whenever she gets back of her throat. Outside of that, she is not bringing up any sputum. OBJECTIVE: VITAL SIGNS: Afebrile, pulse 86, blood pressure 132/71, respirations 24, saturation 93% on room air. GENERAL: The patient is awake, alert, no apparent distress. LUNGS: Decent air entry today. There is minimally prolonged expiratory phase with end-expiratory wh eezing. That being said, I do not appreciate any crackles or rhonchi. HEART: Normal rate, regular. ABDOMEN: Soft, nontender, nondistended. Bowel sounds are positive. MUSCULOSKELETAL: No cyanosis or clubbing. There is no pitting in the bilateral lower extremities. NEUROLOGIC: Grossly nonfocal. LABORATORY DATA: WBC 7.0, hemoglobin 11.9, platelets 417,000. Basic metabolic profile is completely unremarkable except for a BUN of minimally elevated to 21. Cardiac enzymes x3 are negative. Lactat e was also previously unremarkable. Influenza A and B is negative. ASSESSMENT: 1. Asthma with acute exacerbation, resolved. 2. Acute hypoxic respiratory failure, resolved. DISCUSSION AND PLAN: She will be discharged on 10 days of steroids. Antibiotics will be stopped aft er 5-7 days. At this point, she has no further requirements for Pulmonary or Critical Care opinion a nd can follow up with her primary operating room manager in the outpatient setting. I have asked for her to rajendra neely getting onto a long-acting beta agonist and inhaled corticosteroid with her operating room manager.
--- NOTE | 2018-05-30 22:28 | DIS ---
DATE OF ADMISSION: 05/28/2018 DATE OF DISCHARGE: 05/30/2018 CONDITION AT THE TIME OF DISCHARGE: Stable and improved. DISCHARGE DISPOSITION: Home with [facility]. DISCHARGE DIAGNOSES: 1. Acute respiratory hypoxic failure due to acute chronic obstructive pulmonary disease exacerbation . 2. Chronic obstructive pulmonary disease exacerbation. 3. Chronic deconditioning. 4. Hypertension. 5. Moderate protein calorie malnutrition. 6. Hypertension. DISCHARGE MEDICATIONS: Remain the same as admission, Medrol Dosepak, Augmentin 875 mg p.o. b.i.d. fo r 7 more days. Resume home medications as follows: Prednisone 5 mg p.o. b.i.d., Protonix 40 mg fernando y, Afrin nasal spray b.i.d. p.r.n., DuoNebs p.r.n., folic acid 1 mg p.o. b.i.d., Tessalon Perles 2 ta blets p.o. t.i.d., amlodipine 5 mg daily, albuterol inhaler as needed. The patient will take the Med rol Dosepak and then resume her home dose of prednisone 5 mg p.o. b.i.d. INHOUSE CONSULTATION: Pulmonary Medicine, Dr. Reno. HISTORY OF PRESENTING ILLNESS: Ms. Suárez is a very pleasant 72-year-old -[place] female wi th history of COPD, hypertension, chronic kidney disease, and folic acid deficiency who presented to the ER with worsening shortness of breath. She was started on BiPAP after being found severely hypox ic and anxious in the emergency room and was admitted [facility] with a presumptive diagnosis of acute COPD . Chest x-ray, cardiac enzymes were unremarkable on presentation. She was started on nebulizer as w ell as IV steroids, and empiric antibiotics and Pulmonary Medicine was consulted. Please see admissi on history and physical for further details. HOSPITAL COURSE: The patient was taken off of BiPAP shortly after admission to [facility] and eventually w as transitioned down to medical floor when she had significant improvement in her symptoms rather zarina ckly. Her antibiotics and steroids were changed to oral and as of yesterday, she was cleared by Pulm onary Medicine for discharge. This morning, she is back to her baseline and sitting up in chair and walking in the hallways with he lp of the walking program. She is on room air and has no respiratory issues. I did give her the opt ion of rehabilitation versus home with home health and the patient prefers to go home as she has two people who have mental retardation and she needs to be home for them. Home health was arranged with the help of the counter caser and she was discharged. PHYSICAL EXAMINATION: She was seen and examined prior to discharge. VITAL SIGNS: This morning, temperature 97.3, pulse of 86, respirations 24, saturating 89-95% on room air, blood pressure 132/71. GENERAL: No acute distress. CHEST: Clear to auscultation bilaterally without any wheezing, rales or rhonchi. HEART: Rate and rhythm is regular without any murmur, rubs or gallops. DISCHARGE INSTRUCTIONS: She is instructed to follow up with her primary care physician in 7-10 days. Primary care physician, Emil Patricia, she will also follow up with Dr. Reno in 7-10 days as well.
== END 2018-05-30 14:26 | disposition home health service (06) | DRG 189 ==
LOC: ERS 09:18 → IMCU/EMU 11:44 → ONC 05-29 18:20
PROVIDERS: ADMIT Internal Medicine; ATTEND Internal Medicine
PROC: 5A09357 Assistance with Respiratory Ventilation, Less than 24 Consecutive Hours, Continuous Positive Airway Pressure (ICD-10-PCS; principal; 2018-05-28)
DX: J96.01 Acute respiratory failure with hypoxia (principal); J44.1 Chronic obstructive pulmonary disease with (acute) exacerbation; E44.0 Moderate protein-calorie malnutrition; J45.901 Unspecified asthma with (acute) exacerbation; N18.2 Chronic kidney disease, stage 2 (mild); E63.8 Other specified nutritional deficiencies; Z79.899 Other long term (current) drug therapy; I12.9 Hypertensive chronic kidney disease with stage 1 through stage 4 chronic kidney disease, or unspecified chronic kidney disease
CPT/HCPCS: 36415; 71045; 80048; 80053; 82550; 82553; 83605; 84484; 85025; 87804; 90471; 90662; 93005; 94640; 94660; 96365; 96375; G0008; G8978-GP-CK; G8979-GP-CK; G8980-GP-CK; J1650; J2060; J2405; J2920; J7506; J7620; S0028

== ENCOUNTER 2019-12-13 03:39 | Emergency (ER) | payer MEDICARE ==
[2019-12-13] MEDS ORDERED: Metoclopramide HCl 10 MG/2 ML VIAL ONE (03:58)
[2019-12-13] MEDS ORDERED: diphenhydrAMINE 50 MG/ML VIAL ONE (03:58)
[2019-12-13] MEDS ORDERED: Ketorolac Tromethamine 30 MG/ML VIAL ONE (03:58)
--- NOTE | 2019-12-13 07:26 | RAD ---
SINGLE VIEW OF THE CHEST: COMPARISON: 05/28/2018. HISTORY: Cough and shortness of breath. FINDINGS: A single view of the chest shows a normal-size cardiomediastinal silhouette with atherosclerotic calc ifications in the aorta. There is no evidence of consolidation, mass, or pleural effusion. IMPRESSION: No evidence of acute cardiopulmonary disease. POS: EAA
--- NOTE | 2019-12-13 14:58 | EKG ---
Test Reason : Blood Pressure : / mmHG Vent. Rate : 095 BPM Atrial Rate : 095 BPM P-R Int : 132 ms QRS Dur : 090 ms QT Int : 366 ms P-R-T Axes : 081 061 028 degrees QTc Int : 459 ms Normal sinus rhythm No STEMI Normal ECG Confirmed by THIAGO KUHN M.D. ([id number]), senior technical editor RADHA HOLLINGSWORTH ([id number] on 12/13/2019 2:58:04 PM Referred By: Confirmed By:THIAGO KUHN M.D.
== END 2019-12-13 05:40 | disposition home or self-care (01) ==
LOC: ERS 03:39
DX: R51 Headache (principal); M79.18 Myalgia, other site; R06.02 Shortness of breath; R05 Cough; J43.9 Emphysema, unspecified; I50.9 Heart failure, unspecified; Z79.51 Long term (current) use of inhaled steroids; Z79.899 Other long term (current) drug therapy; Z79.82 Long term (current) use of aspirin
CPT/HCPCS: 71045; 93005; 94760; 96365; 96375; J1200; J1885; J2765

== ENCOUNTER 2020-03-11 03:38 | Emergency (ER) | payer MEDICARE ==
[2020-03-11] MEDS ORDERED: methylPREDNISolone Sod Succ/PF 125 MG/2 ML VIAL ONE (03:49)
[2020-03-11] MEDS ORDERED: Magnesium 2 GM/50 ML BAG (IN WATER) ONE (03:53)
[2020-03-11 04:36] LABS: ALT (SGPT) 11 U/L (8-55); AST (SGOT) 20 U/L (5-34); Albumin 4.1 g/dL (3.4-4.8); Alkaline Phosphatase 76 U/L (40-110); Anion Gap 12 mmol/L (10-20); BUN (Urea Nitrogen) 7 mg/dL (9.8-20.1); Bilirubin, Total 0.5 mg/dL (0.2-1.2); Calc. Creatinine Clearance 0 mL/min (70-130); Calcium 8.9 mg/dL (7.8-10.44); Carbon Dioxide 28 mmol/L (23-31); Chloride 102 mmol/L (98-107); Estimated GFR-MDRD 88; Globulin 3.7 g/dL (2.4-3.5); Glucose 97 mg/dL (83-110); Potassium 3.6 mmol/L (3.5-5.1); Protein, Total 7.8 g/dL (6.0-8.3); Sodium 138 mmol/L (136-145)
[2020-03-11 04:40] LABS: Mean Corpuscular Hemoglobin 33.4 pg (27.0-31.0); Platelet Count 415 thou/uL (130-400); RBC Distribution Width 11.5 % (11.5-14.5); White Blood Cell (WBC) Count 6.6 thou/uL (4.8-10.8)
[2020-03-11 04:41] LABS: Lymphocytes 38 % (21-51); MDiff Complete? YES; Monocytes 4 % (0-10); Neutrophil 58 % (42-75); Platelet Morphology Comment Appears Adequate; RBC Morphology Normal
--- NOTE | 2020-03-11 07:21 | RAD ---
CHEST 1 VIEW: Date: 03/11/2020 INDICATION: Dyspnea. COMPARISON: Prior exam dated 12/13/2019. IMPRESSION: COPD change is stable appearing. No definite acute infiltrate is evident. No pleural effusion is evid ent. No pneumothorax is demonstrated. Osseous structures are unchanged. POS: BH
== END 2020-03-11 05:50 | disposition home or self-care (01) ==
LOC: ERS 03:38
DX: J44.1 Chronic obstructive pulmonary disease with (acute) exacerbation (principal); Z79.899 Other long term (current) drug therapy
CPT/HCPCS: 36415; 71045; 80053; 83880; 84484; 85025; 93005; 96365; 96375; J2930; J3475

== ENCOUNTER 2020-08-26 10:11 | Inpatient (IN) | payer MEDICARE ==
[2020-08-26 11:41] LABS: #Lymphocytes 1.3 thou/uL (1.20-3.40); #Monocytes 0.4 thou/uL (0.11-0.59); #Neutrophils 5.3 thou/uL (1.40-6.50); %Basophils 0.3 % (0.0-1.0); %Eosinophils 0.2 % (0.0-10.0); %Lymphocytes 18.2 % (21.0-51.0); %Monocytes 5.9 % (0.0-10.0); %Neutrophils 75.4 % (42.0-75.0); Hemoglobin 11.4 g/dL (12.0-16.0); Mean Corpuscular HGB CONC 33.5 g/dL (32.0-36.0); Mean Corpuscular Hemoglobin 34.3 pg (27.0-31.0); Mean Platelet Volume 6.2 fL (7.4-10.4); Platelet Count 522 thou/uL (130-400); RBC Distribution Width 11.2 % (11.5-14.5); Red Blood Cell (RBC) Count 3.32 mill/uL (4.20-5.40); White Blood Cell (WBC) Count 7.1 thou/uL (4.8-10.8)
[2020-08-26 12:10] LABS: ALT (SGPT) 8 U/L (8-55); AST (SGOT) 18 U/L (5-34); Albumin 4.2 g/dL (3.4-4.8); Alkaline Phosphatase 66 U/L (40-110); Anion Gap 19 mmol/L (10-20); BUN (Urea Nitrogen) 7 mg/dL (9.8-20.1); Bilirubin, Total 0.6 mg/dL (0.2-1.2); Calc. Creatinine Clearance 0 mL/min (70-130); Calcium 8.8 mg/dL (7.8-10.44); Carbon Dioxide 25 mmol/L (23-31); Chloride 100 mmol/L (98-107); Globulin 4.4 g/dL (2.4-3.5); Glucose 96 mg/dL (83-110); Potassium 3.5 mmol/L (3.5-5.1); Protein, Total 8.6 g/dL (6.0-8.3); Sodium 140 mmol/L (136-145)
--- NOTE | 2020-08-26 12:10 | RAD ---
PORTABLE CHEST: HISTORY: COVID positive. Shortness of breath. COMPARISON: 03/11/2020 exam. FINDINGS: Heart size is within normal limits with atherosclerotic changes of the aorta. Subtle increased densi ty is seen in both lung maier. The changes appear slightly more prominent than on the previous ches t x-ray, although this probably represents early ground-glass infiltrative change. IMPRESSION: 1. Chronic lung change. Subtle increased markings in both lung maier as compared to the previous exam. Given the history of being COVID positive, the changes are suspicious for early groun d-glass infiltrates. POS: DESHAWN
--- NOTE | 2020-08-26 13:50 | PDOC.FPRHP ---
- History of Present Illness Chief Complaint: SOB History of Present Illness: Patient is a 74 y/o female with a PMH notable for COPD, CHF, HTN and Asthma who presents to the ED for evaluation of SOB. Per the patient, she began to have worsening SOB and mild GI distress on 08/21 and subsequently tested positive for COVID-19 on 08/22 - this was confirmed with [facility] Records. Patient states that she took her regular home medication regimen and some OTC medication, but was unable to elaborate on whether or not they helped to alleviate her symptoms. Per the ER Attending Physician check-out, patient was found to be 80% on Room Air by EMS and was subsequently started on supplemental 3L of O2 via NC. Patient is reportedly not on supplemental O2 at home. Of note, patient stated that she is Hearing Impaired at baseline, and required all questions and instructions to be hand-written. ED Course: s/p Dexamethasone 10 mg IV, 1 L NS Patient was subsequently weaned from 3L O2 via NC to 1L O2 via NC, with O2Sats in the upper 90s. - Allergies/Adverse Reactions Allergies Allergy/AdvReac Type Severity Reaction Status Date / Time No Known Drug Allergies Allergy Verified 05/28/18 12:39 - Home Medications Medication Instructions Recorded Confirmed Type Albuterol Sulfate [Proair HFA] 1 puff INH Q4HR PRN 12/06/17 05/29/18 History Amlodipine Besylate [amLODIPine 5 mg PO DAILY 12/06/17 05/29/18 History Besylate] Ipratropium/Albuterol Sulfate 3 ml NEB QID PRN 12/06/17 05/29/18 History [DuoNeb] Pantoprazole [Protonix] 40 mg PO DAILY 12/06/17 05/29/18 History Folic Acid [Folvite] 1 mg PO BID tab 12/07/17 05/29/18 Rx Benzonatate [Tessalon] 2 tab PO TID PRN 05/29/18 05/29/18 History Oxymetazoline HCl [Afrin Nasal 2 - 3 spray EA NARE BID PRN 05/29/18 05/29/18 History [place]] predniSONE 5 mg PO BID-WM 05/29/18 05/29/18 History Amoxicillin/Potassium Clav 875 mg PO BID #10 tab 05/30/18 Rx [Augmentin] Ipratropium/Albuterol Sulfate 3 ml NEB [id number] PRN #30 neb 05/30/18 Rx [DuoNeb] methylPREDNISolone [Medrol Dospak] 4 mg PO ASDIR #1 pk 05/30/18 Rx - History PMHx: COPD, CHF, HTN, Asthma PSHx: None FHx: Non-Contributory Social: Denies x3. - Review of Systems General: denies: fever/chills Eyes: denies: vision changes Respiratory: reports: shortness of breath. denies: cough Cardiovascular: denies: chest pain Gastrointestinal: reports: nausea Genitourinary: denies: dysuria Neurological: denies: syncope, seizure Psychological: denies: anxiety - Vital signs BP: 133/62 HR: 103 RR: 23 Tmax: 98.7 Pox: 97% on 1L Wt: 49.44kg - Physical Exam Constitutional: NAD, awake, alert and oriented -Constitutional: patient is deaf HEENT: normocephalic and atraumatic, PERRLA, EOMI, conjunctiva clear, no scleral icterus, grossly normal vision, MMM, oropharynx clear, other -HEENT: Patient stated that she was deaf and required all questions and instructions to be written. Neck: supple, trachea midline -Neck: Left-sided Anterior Cervical LAD Chest: no-tender to palpation Heart: RRR, normal S1/S2, no murmurs/rubs/gallops, pulses present, no edema Lungs: no respiratory distress, good air movement, no wheezing, no retractions -Lungs: Currently requiring 1L O2 via NC Bilateral crackles noted in mid- and lower- lung maier Abdomen: soft, non-tender, bowel sounds present Musculoskeletal: normal structure, normal tone, ROM grossly normal Neurological: no focal deficit Psychiatric: normal mood and affect, good judgment and insight, intact recent and remote memory, other (Poor medical insight) FMR H&P: Results - Labs Result Diagrams: 08/26/20 14:27 08/26/20 14:22 Lab results: WBC 7.1 thou/uL (4.8-10.8) 08/26/20 11:31 Hgb 11.4 g/dL (12.0-16.0) L 08/26/20 11:31 Hct 34.0 % (36.0-47.0) L 08/26/20 11:31 MCV 102.0 fL (78.0-98.0) H 08/26/20 11:31 Plt Count 522 thou/uL (130-400) H 08/26/20 11:31 Neutrophils % 75.4 % (42.0-75.0) H 08/26/20 11:31 Sodium 140 mmol/L (136-145) 08/26/20 11:31 Potassium 3.5 mmol/L (3.5-5.1) 08/26/20 11:31 Chloride 100 mmol/L (98-107) 08/26/20 11:31 Carbon Dioxide 25 mmol/L (23-31) 08/26/20 11:31 BUN 7 mg/dL (9.8-20.1) L 08/26/20 11:31 Creatinine 0.77 mg/dL (0.6-1.1) 08/26/20 11:31 Glucose 96 mg/dL (83-110) 08/26/20 11:31 Lactic Acid 2.4 mmol/L (0.5-2.2) H 08/26/20 11:31 Calcium 8.8 mg/dL (7.8-10.44) 08/26/20 11:31 Total Bilirubin 0.6 mg/dL (0.2-1.2) 08/26/20 11:31 AST 18 U/L (5-34) 08/26/20 11:31 ALT 8 U/L (8-55) 08/26/20 11:31 Alkaline Phosphatase 66 U/L (40-110) 08/26/20 11:31 B-Natriuretic Peptide Less than 10.0 pg/mL (0-100) 08/26/20 11:31 Serum Total Protein 8.6 g/dL (6.0-8.3) H 08/26/20 11:31 Albumin 4.2 g/dL (3.4-4.8) 08/26/20 11:31 - EKG Interpretation EKG: EKG: Mild tachycardia with few PVCs, possible anterolateral infarct (Age: Undetermined) - Radiology Interpretation Chest x-ray Status: image reviewed by me, report reviewed by me (Possible early ground-glass opacities noted in comparison to previous CXR) FMR H&P: A/P - Problem List (1) Asthma Current Visit: Yes Status: Chronic Code(s): J45.909 - UNSPECIFIED ASTHMA, UNCOMPLICATED (2) CHF (congestive heart failure) Current Visit: Yes Status: Chronic Code(s): I50.9 - HEART FAILURE, UNSPECIFIED (3) HTN (hypertension) Current Visit: No Status: Chronic Code(s): I10 - ESSENTIAL (PRIMARY) HYPERTENSION Qualifiers: (4) COVID-19 Current Visit: Yes Status: Acute Code(s): U07.1 - COVID-19 (5) COPD (chronic obstructive pulmonary disease) Current Visit: Yes Status: Acute (6) Sepsis Current Visit: Yes Status: Acute Code(s): A41.9 - SEPSIS, UNSPECIFIED ORGANISM Qualifiers: Sepsis type: sepsis due to unspecified organism Sepsis acute organ dysfunction status: without acute organ dysfunction Qualified Code(s): A41.9 - Sepsis, unspecified organism - Plan Patient is a 74 y/o female with a PMH notable for COPD, CHF, HTN and Asthma who presents to the ER for evaluation of worsening SOB in the setting of known COVID-19 infection. #Sepsis 2/2 COVID PNA -Patient demonstrated tachycardia and tachypnea, with an elevated LA and known COVID-19 -COVID: Positive on 08/22/20 - confirmed with [facility] -Reportedly required 3L O2 via NC but was subsequently weaned to 1L in the ED - will wean as appropriate -Physical Exam notable for bilateral crackles in the mid- and lower- lung maier -CXR: Chronic disease with evidence for early ground glass opacities -LA: 2.4 > 1.6 -Ferritin: Pending -CRP: Pending -Procal: Pending -LDH: Pending -Mg / Phos: Pending -s/p Dexamethason 10mg IV in - will transition to 6 mg IV daily -Will order Convalescent Plasma but will hold Remdesivir based on O2 requirement -Based on age, multiple co-morbidities and timing of illness - will plan for Inpatient Status at this time #Acute Hypoxic Respiratory Failure -See Above #CHF -Patient is followed by [facility] -BNP: Pending -No Echo on file - will not repeat unless BNP is severely elevated -Will resume home medication regimen once confirmed with [facility] #COPD -Likely contributing factor to above -Patient does not utilize supplemental O2 at home -Will continue home medication regimen once confirmed with [facility] #CKD -Cr: 0.7 -GFR: 88 -Will renally dose all medications and avoid nephrotoxic agents #Macrocytic Anemia -H.4 -MCV: 102 -Patient denied EtOH Abuse -B12: Pending -Folate: Pending #HTN -BP currently at goal -Will continue home medication regimen once confirmed with [facility] PCP: [facility] Code: Full Diet: HH w/ Low Sodium Activity: Ad gustavo VTE PPx: Lovenox 40 mg SC BID GI PPx: Protonix 40 mg PO daily Dispo: Patient is currently stable and admitted to the Medical Floor for ongoing treatment of Sepsis / AHRF 2/2 COVID-19 Pneumonia. Will provide supplemental O2 and wean as appropriate. Will continue daily steroids and anticoagulation as per above. Will obtain additional labwork for the active management of COVID-19 Pneumonia as well further evaluation of CHF - will consider repeat Echo if BNP is elevated. Expected LOS > 48H. Note: Dr. Michael Rojo MD completed the initial evaluation of this patient as well as confirmed the plan with the Attending Physician, Dr. Caleb Galeas MD. Dr. Christie Del Cid MD assisted with documentation only and was erroneously listed as a co-signer. FMR H&P: Upper Level - Plan Date/Time: 08/26/20 [id number] I, [], have evaluated this patient and agree with findings/plan as outlined by quality assurance intern resident. Pertinent changes/additions are listed here. Addendum - Attending - Attending Attestation Date/Time: 08/26/20 [id number] I personally evaluated the patient and discussed the management with Dr. Rojo. I agree with the History, Examination, Assessment and Plan documented above with any addition or exceptions noted below.
[2020-08-26] MEDS ORDERED: Ondansetron PF 4 MG/2 ML Vial IVP PRN (14:06)
[2020-08-26] MEDS ORDERED: Ondansetron ODT 4 MG TAB PO PRN (14:06)
[2020-08-26] MEDS ORDERED: Acetaminophen 325 MG TAB PO PRN (14:06)
[2020-08-26] MEDS ORDERED: Dexamethasone 10 MG/ML VIAL ONE (14:17)
[2020-08-26 14:45] LABS: Prothrombin Time 13.5 sec (12.0-14.7)
[2020-08-26] MEDS ORDERED: Enoxaparin Sodium 40 MG/0.4 ML SYRINGE SC SCH (14:45)
[2020-08-26 14:46] LABS: D-Dimer Test 0.76 *mcg/mL (0.27-0.43)
[2020-08-26 14:54] LABS: Lactic Acid 1.6 mmol/L (0.5-2.2)
[2020-08-26 15:00] LABS: Hemoglobin 12.8 g/dL (12.0-16.0); Mean Corpuscular HGB CONC 32.5 g/dL (32.0-36.0); Mean Corpuscular Hemoglobin 33.7 pg (27.0-31.0); Mean Platelet Volume 6.1 fL (7.4-10.4); Platelet Count 452 thou/uL (130-400); RBC Distribution Width 11.3 % (11.5-14.5); Red Blood Cell (RBC) Count 3.79 mill/uL (4.20-5.40); White Blood Cell (WBC) Count 6.6 thou/uL (4.8-10.8)
[2020-08-26 15:02] LABS: ALT (SGPT) 7 U/L (8-55); AST (SGOT) 17 U/L (5-34); Albumin 4.2 g/dL (3.4-4.8); Alkaline Phosphatase 69 U/L (40-110); Anion Gap 16 mmol/L (10-20); BUN (Urea Nitrogen) 7 mg/dL (9.8-20.1); Bilirubin, Total 0.5 mg/dL (0.2-1.2); CRP (Inflammatory) 0.69 mg/dL (= or < 0.5); Calc. Creatinine Clearance 0 mL/min (70-130); Calcium 8.8 mg/dL (7.8-10.44); Carbon Dioxide 26 mmol/L (23-31); Chloride 101 mmol/L (98-107); Globulin 4.5 g/dL (2.4-3.5); Glucose 93 mg/dL (83-110); Phosphorus 2.4 mg/dL (2.3-4.7); Potassium 3.4 mmol/L (3.5-5.1); Protein, Total 8.7 g/dL (6.0-8.3); Sodium 140 mmol/L (136-145)
[2020-08-26 15:04] LABS: Lymphocytes 32 % (21-51); MDiff Complete? YES; Macrocytosis SLIGHT = 6-15 cells (100X) (0-5/hpf); Monocytes 5 % (0-10); Neutrophil 60 % (42-75); Platelet Morphology Comment Appears Increased; Reactive Lymphocytes 2 % (0-10)
[2020-08-26] MEDS ORDERED: REMDESIVIR (EUA) 200 MG in Sodium Chloride 0.9% 250 ML 210 ML IV SCH (15:15)
[2020-08-26] MEDS ORDERED: Potassium Chloride 20 MEQ TAB PO SCH (15:45)
[2020-08-26 18:14] VITALS: BMI 18.9
[2020-08-26] MEDS ORDERED: Famotidine 20 MG TAB PO SCH (21:00)
[2020-08-27] MEDS ORDERED: Benzonatate 100 MG CAP PO PRN (06:01)
[2020-08-27] MEDS ORDERED: Non-Formulary Item 1 EACH (Albuterol Sulfate [Proair Hfa] 8.5 GM Hfa.Aer.Ad) INH PRN (06:01)
[2020-08-27] MEDS ORDERED: Albuterol 200 PUFF (6.7GM INHALER) INH PRN (06:08)
[2020-08-27 06:48] LABS: Eosinophils 1 % (0-10); Hemoglobin 11.3 g/dL (12.0-16.0); Hypochromia SLIGHT = 6-15 cells (100X) (0-5/hpf); Lymphocytes 45 % (21-51); MDiff Complete? YES; Macrocytosis SLIGHT = 6-15 cells (100X) (0-5/hpf); Mean Corpuscular HGB CONC 33.5 g/dL (32.0-36.0); Mean Corpuscular Hemoglobin 34.2 pg (27.0-31.0); Mean Platelet Volume 6.3 fL (7.4-10.4); Monocytes 4 % (0-10); Neutrophil 50 % (42-75); Platelet Count 489 thou/uL (130-400); Platelet Morphology Comment Appears Increased; RBC Distribution Width 11.2 % (11.5-14.5); Red Blood Cell (RBC) Count 3.31 mill/uL (4.20-5.40); White Blood Cell (WBC) Count 5.4 thou/uL (4.8-10.8)
[2020-08-27 06:55] LABS: ALT (SGPT) 9 U/L (8-55); AST (SGOT) 20 U/L (5-34); Alkaline Phosphatase 66 U/L (40-110); Anion Gap 17 mmol/L (10-20); BUN (Urea Nitrogen) 7 mg/dL (9.8-20.1); Bilirubin, Total 0.6 mg/dL (0.2-1.2); Calc. Creatinine Clearance 52 mL/min (70-130); Calcium 8.4 mg/dL (7.8-10.44); Carbon Dioxide 22 mmol/L (23-31); Chloride 102 mmol/L (98-107); Globulin 4.2 g/dL (2.4-3.5); Glucose 97 mg/dL (83-110); Magnesium 1.9 mg/dL (1.6-2.6); Phosphorus 2.1 mg/dL (2.3-4.7); Potassium 3.8 mmol/L (3.5-5.1); Protein, Total 8.2 g/dL (6.0-8.3); Sodium 137 mmol/L (136-145)
--- NOTE | 2020-08-27 08:22 | PDOC.FM ---
- Subjective Subjective: Patient was resting comfortably at the time of evaluation. She denied any acute overnight events, particularly with regard to chest pain or worsening cough or SOB. - Objective Vital Signs & Weight: Vital Signs (12 hours) Temp Pulse Resp BP BP Pulse Ox 08/27/20 04:30 97.5 F L 80 20 122/57 L 98 08/27/20 01:01 97.3 F L 85 20 127/66 98 08/26/20 23:30 97.6 F 84 18 130/73 96 08/26/20 23:10 84 16 136/73 97 08/26/20 23:00 96 08/26/20 22:55 97.7 F 115 H 18 156/82 H 99 08/26/20 22:40 97.3 F L 86 18 147/75 H 99 08/26/20 21:00 97.5 F L 93 18 130/69 99 Weight Weight 48.534 kg I&O: 08/26/20 08/27/20 08/28/20 06:59 06:59 06:59 Intake Total 445 Balance 445 Result Diagrams: 08/27/20 05:59 08/27/20 05:59 Phys Exam - Physical Examination Constitutional: NAD HEENT: moist MMs Neck: no nodes, supple, full ROM Respiratory: no wheezing, no rhonchi, clear to auscultation bilateral Bilateral rales in lower lung maier - diminished since admission Cardiovascular: RRR, no significant murmur, no rub Gastrointestinal: soft, non-tender, no distention, positive bowel sounds Musculoskeletal: no edema, pulses present Neurological: non-focal, moves all 4 limbs Lymphatic: no nodes Psychiatric: normal affect Dx/Plan (1) Asthma Code(s): J45.909 - UNSPECIFIED ASTHMA, UNCOMPLICATED Status: Chronic (2) CHF (congestive heart failure) Code(s): I50.9 - HEART FAILURE, UNSPECIFIED Status: Chronic (3) HTN (hypertension) Code(s): I10 - ESSENTIAL (PRIMARY) HYPERTENSION Status: Chronic Qualifiers: (4) COVID-19 Code(s): U07.1 - COVID-19 Status: Acute (5) COPD (chronic obstructive pulmonary disease) Status: Acute (6) Sepsis Code(s): A41.9 - SEPSIS, UNSPECIFIED ORGANISM Status: Acute Qualifiers: Sepsis type: sepsis due to unspecified organism Sepsis acute organ dysfunction status: without acute organ dysfunction Qualified Code(s): A41.9 - Sepsis, unspecified organism - Plan Plan: Patient is a 74 y/o female with a PMH notable for COPD, CHF, HTN and Asthma who presents to the ER for evaluation of worsening SOB in the setting of known COVID-19 infection. #Sepsis 2/2 COVID PNA -Patient demonstrated tachycardia and tachypnea, with an elevated LA and known COVID-19 -COVID: Positive on 08/22/20 - confirmed with [facility] -Reportedly required 3L O2 via NC in the field but was subsequently weaned to 1L in the ED - will wean as appropriate -Physical Exam notable for bilateral crackles in the mid- and lower- lung maier - improved since admission -CXR: Chronic disease with evidence for early ground glass opacities -LA: 2.4 > 1.6 -PT: 13.5 / INR: 1 / APTT: 29 -D-Dimer: 0.76 - will trend -Ferritin: 67 -CRP: 0.69 -Procal: 0.04 -LDH: 292 -M.9 / Phos: 2.1 - will replace Phos -s/p Dexamethason 10mg IV in - will transition to 6 mg IV daily -s/p Convalescent Plasma but will hold Remdesivir based on O2 requirement -Based on age, multiple co-morbidities and timing of illness - will plan for Inpatient Status at this time but hopeful for DC within 24H #Acute Hypoxic Respiratory Failure -See Above #CHF -Patient is followed by [facility] -BNP: 10 -Trop: < 0.01 -No Echo on file - will not repeat as patient does not appear ot be in acute exacerbation -Will resume home medication regimen #COPD -Likely contributing factor to above -Patient does not utilize supplemental O2 at home -Will continue home medication regimen #CKD -Cr: 0.7 -GFR: 88 -Will renally dose all medications and avoid nephrotoxic agents #Macrocytic Anemia -Likely multi-factorial -H.4 -MCV: 102 -Patient denied EtOH Abuse -See Above #HTN -BP currently at goal -Will continue home medication regimen PCP: [facility] Code: Full Diet: HH w/ Low Sodium Activity: Ad gustavo VTE PPx: Lovenox 40 mg SC BID GI PPx: Protonix 40 mg PO daily Dispo: Patient is currently stable and admitted to the Medical Floor for ongoing treatment of Sepsis / AHRF 2/2 COVID-19 Pneumonia, with notably increase respiratory function compared to reported status in the field and demonstrated status upon admission. Will provide supplemental O2 and wean as appropriate. Will continue daily steroids and anticoagulation as per above. Expected LOS < 24H. Addendum - Attending - Attending Attestation Date/Time: 08/27/20 8626 I personally evaluated the patient and discussed the management with Dr. Rojo. I agree with the History, Examination, Assessment and Plan documented above with any addition or exceptions noted below.
[2020-08-27] MEDS: Dexamethasone 4 MG TAB PO SCH (08:30)
[2020-08-27] MEDS: Folic Acid 1 MG TAB PO SCH ×2 (08:30→20:47)
[2020-08-27] MEDS: PHOS-NAK 1 PKT PACK PO SCH (08:30)
[2020-08-27] MEDS ORDERED: Enoxaparin Sodium 40 MG/0.4 ML SYRINGE SC SCH (09:00)
[2020-08-27] MEDS ORDERED: FLU VACC QS2020-21(65YR UP)/PF 240 MCG/0.7 ML SYRINGE IM ONE (09:00)
[2020-08-27] MEDS: Enoxaparin Sodium 40 MG/0.4 ML SYRINGE SC SCH ×2 (09:30→20:47)
[2020-08-27] MEDS ORDERED: REMDESIVIR (EUA) 100 MG in Sodium Chloride 0.9% 250 ML 230 ML IV SCH (16:00)
--- NOTE | 2020-08-28 06:20 | PDOC.FM ---
- Subjective Subjective: Patient was sitting up in bed in no acute respiratory distress at the time of evaluation. Patient denied any acute overnight events, particularly with regard to difficulty breathing without supplemental O2. Per review of handwritten Nursing Staff notes, patient's O2Sats were in the mid- to high-90s throughout the night without supplemental O2, and no acute overnight events were reported by the Resident Night Team. - Objective Vital Signs & Weight: Vital Signs (12 hours) Temp Pulse Resp BP Pulse Ox 08/28/20 04:00 97.2 F L 96 20 139/52 L 96 08/28/20 00:57 97.6 F 66 18 121/76 97 08/27/20 20:00 97.8 F 79 18 130/73 99 Weight Admit Weight 48.534 kg Weight 48.534 kg I&O: 08/26/20 08/27/20 08/28/20 06:59 06:59 06:59 Intake Total 445 730 Balance 445 730 Result Diagrams: 08/28/20 06:27 08/28/20 06:27 Phys Exam - Physical Examination Constitutional: NAD HEENT: moist MMs Neck: supple, full ROM Respiratory: no wheezing, no rhonchi, clear to auscultation bilateral Scant rales heard in the left lower lobe - decreased from previous exam Cardiovascular: RRR, no significant murmur, no rub Gastrointestinal: soft, non-tender, no distention, positive bowel sounds Musculoskeletal: no edema, pulses present Neurological: non-focal, moves all 4 limbs Lymphatic: no nodes Psychiatric: normal affect Dx/Plan (1) Asthma Code(s): J45.909 - UNSPECIFIED ASTHMA, UNCOMPLICATED Status: Chronic (2) CHF (congestive heart failure) Code(s): I50.9 - HEART FAILURE, UNSPECIFIED Status: Chronic (3) HTN (hypertension) Code(s): I10 - ESSENTIAL (PRIMARY) HYPERTENSION Status: Chronic Qualifiers: (4) COVID-19 Code(s): U07.1 - COVID-19 Status: Acute (5) COPD (chronic obstructive pulmonary disease) Status: Acute (6) Sepsis Code(s): A41.9 - SEPSIS, UNSPECIFIED ORGANISM Status: Acute Qualifiers: Sepsis type: sepsis due to unspecified organism Sepsis acute organ dysfunction status: without acute organ dysfunction Qualified Code(s): A41.9 - Sepsis, unspecified organism (7) Acute and chronic respiratory failure with hypoxia Code(s): J96.21 - ACUTE AND CHRONIC RESPIRATORY FAILURE WITH HYPOXIA Status: Acute - Plan Plan: Patient is a 74 y/o female with a PMH notable for COPD, CHF, HTN and Asthma who presented to the ER for evaluation of worsening SOB in the setting of known COVID-19 infection. #Sepsis 2/2 COVID PNA -Patient demonstrated tachycardia and tachypnea, with an elevated LA and known COVID-19 -COVID: Positive on 08/22/20 - confirmed with [facility] -Reportedly required 3L O2 via NC in the field but was subsequently weaned to 1L in the ED - has been off supplemental O2 for ~24H -Initial Physical Exam notable for bilateral crackles in the mid- and lower- lung maier - greatly improved since admission with good air movement -CXR: Chronic disease with evidence for early ground glass opacities -LA: 2.4 > 1.6 -PT: 13.5 / INR: 1 / APTT: 29 -D-Dimer: 0.76 -Ferritin: 67 -CRP: 0.69 -Procal: 0.04 -LDH: 292 -M.9 / Phos: 2.1 - will replace Phos -s/p Dexamethason 10mg IV in ER - currently receiving 6 mg IV daily -s/p Convalescent Plasma but will hold Remdesivir based on O2 requirement -Patient's condition appears to have greatly improved since admission - will likely plan for DC today #Acute Hypoxic Respiratory Failure -See Above #CHF -Patient is followed by [facility] -BNP: 10 -Trop: < 0.01 -No Echo on file - will not repeat as patient does not appear to be in acute exacerbation -Will resume home medication regimen #COPD -Likely contributing factor to above -Patient does not utilize supplemental O2 at home -Will continue home medication regimen #CKD -Cr: 0.7 -GFR: 88 -Will renally dose all medications and avoid nephrotoxic agents #Macrocytic Anemia -Likely multi-factorial -H.4 -MCV: 102 -Patient denied EtOH Abuse -See Above #HTN -BP currently at goal -Will continue home medication regimen PCP: [facility] Code: Full Diet: HH w/ Low Sodium Activity: Ad gustavo VTE PPx: Lovenox 40 mg SC BID GI PPx: Protonix 40 mg PO daily Dispo: Patient is currently stable and admitted to the Medical Floor for ongoing treatment of Sepsis / AHRF 2/2 COVID-19 Pneumonia, with notable increase in respiratory function compared to reported status in the field and demonstrated status upon admission. Patient has been successfully weaned off supplemental O2 and states that she is at her baseline. Will plan to DC later this AM and resume home medication regimen. Expected LOS < 12H. Addendum - Attending - Attending Attestation Date/Time: 08/28/20 7806 I Discussed the patient with Dr Rojo prior to discharge.
[2020-08-28 07:19] LABS: Hemoglobin 11.3 g/dL (12.0-16.0); Mean Corpuscular HGB CONC 33.1 g/dL (32.0-36.0); Mean Corpuscular Hemoglobin 34.1 pg (27.0-31.0); Mean Platelet Volume 6.6 fL (7.4-10.4); Platelet Count 505 thou/uL (130-400); RBC Distribution Width 11.5 % (11.5-14.5); White Blood Cell (WBC) Count 7.1 thou/uL (4.8-10.8)
[2020-08-28 07:32] VITALS: BP 126/73; TEMP 97.6
[2020-08-28 07:32] LABS: ALT (SGPT) 10 U/L (8-55); AST (SGOT) 21 U/L (5-34); Albumin 3.9 g/dL (3.4-4.8); Alkaline Phosphatase 69 U/L (40-110); Anion Gap 14 mmol/L (10-20); BUN (Urea Nitrogen) 14 mg/dL (9.8-20.1); Bilirubin, Total 0.6 mg/dL (0.2-1.2); Calc. Creatinine Clearance 52 mL/min (70-130); Calcium 8.8 mg/dL (7.8-10.44); Carbon Dioxide 26 mmol/L (23-31); Chloride 102 mmol/L (98-107); Globulin 3.9 g/dL (2.4-3.5); Glucose 111 mg/dL (83-110); Magnesium 2.1 mg/dL (1.6-2.6); Potassium 3.3 mmol/L (3.5-5.1); Protein, Total 7.8 g/dL (6.0-8.3); Sodium 139 mmol/L (136-145)
[2020-08-28 07:34] LABS: Phosphorus 1.6 mg/dL (2.3-4.7)
[2020-08-28] MEDS: Dexamethasone 4 MG TAB PO SCH (08:11)
[2020-08-28] MEDS: PHOS-NAK 1 PKT PACK PO SCH (08:12)
[2020-08-28] MEDS: Enoxaparin Sodium 40 MG/0.4 ML SYRINGE SC SCH (08:13)
[2020-08-28] MEDS: Folic Acid 1 MG TAB PO SCH (08:13)
[2020-08-28 08:33] LABS: Band 1 % (5-11); Eosinophils 1 % (0-10); Lymphocytes 25 % (21-51); MDiff Complete? YES; Monocytes 8 % (0-10); Neutrophil 63 % (42-75); Platelet Morphology Comment Appears Increased; RBC Morphology Normal; Reactive Lymphocytes 2 % (0-10)
--- NOTE | 2020-08-28 15:42 | DIS ---
DATE OF ADMISSION: 08/26/2020 DATE OF DISCHARGE: 08/28/2020 RESIDENT: Michael Rojo MD ADMITTING ATTENDING: Caleb Galeas MD DISCHARGE ATTENDING: Caleb Galeas MD CONSULTS: None. PROCEDURES: Chest x-ray performed on 08/26/2020, which demonstrated chronic lung changes, subtle increased markings in both lung maier as compared to the previous evaluation on 03/11/2020. Given history of the patient being COVID positive, the changes are suspicious for early ground-glass infiltrates. PRIMARY DIAGNOSIS: Acute hypoxic respiratory failure secondary to COVID-19 pneumonia. SECONDARY DIAGNOSES: Chronic obstructive pulmonary disease, congestive heart failure, hypertension, and asthma. DISCHARGE MEDICATIONS: 1. Albuterol 1 puff q.4 hours p.r.n. 2. Amlodipine 10 mg p.o. daily. 3. Tessalon Perles two tabs p.o. t.i.d. 4. Folic acid 1 mg p.o. daily. 5. Ipratropium/albuterol sulfate 3 mL q.i.d. p.r.n. 6. Oxymetazoline 2 to 3 sprays each nares b.i.d. 7. Pantoprazole 40 mg p.o. daily. 8. Prednisone 5 mg p.o. b.i.d. Discontinued medications; none. HISTORY OF PRESENT ILLNESS AND HOSPITAL COURSE: The patient is a 74-year-old with past medical history notable for COPD, CHF, hypertension, and asthma, presents to the emergency department for evaluation of shortness of breath. Per the patient, she began to have worsening shortness of breath and mild GI distress on 08/21/2020, subsequently tested positive for COVID-19 on 08/22/2020. This was confirmed with [facility] medical records. The patient states she took her regular home medication regimen and some unknown OTC medications, but was unable to elaborate on whether or not these helped to alleviate her symptoms. Per the emergency room attending physician check out, the patient was found to be saturating at 80% on room air by EMS. EMS subsequently applied supplemental oxygen via nasal cannula, initiating flow of about 3 L, this was subsequently weaned down to 1 L while in the emergency room. Of note, the patient is not on supplemental oxygen at home. Additionally, the patient is hearing impaired at baseline and all questions and instructions had to be hand written throughout the patient's hospitalization following her initial evaluation and stabilization in the emergency department. In the emergency department, the patient was given 10 mg of dexamethasone and a 1 L bolus of normal saline. A chest x-ray was performed and the results of which are mentioned elsewhere in this document as the patient was subsequently stabilized. She was transferred to the medical floor for ongoing evaluation of acute hypoxic respiratory failure secondary to COVID-19 pneumonia. Her breathing status improved dramatically following resumption of her home medication regimen and as such, she was subsequently weaned off supplemental oxygen for approximately 24 hours prior to discharge. As the patient's condition had greatly improved and she no longer required supplemental oxygen, she was subsequently prepped for discharge with instructions to follow up with her primary care provider in 1 to 2 weeks. Prior to discharge, the patient's vital signs were recorded as 97.6 degrees Fahrenheit, pulse 69 beats per minute, respirations 16 breaths per minute, oxygen saturation 96% on room air, blood pressure 126/73. Laboratory analysis revealed a white blood cell count of 7.1, hemoglobin of 11.3, hematocrit 34.1, platelet count 505. Coagulation panel revealed a PT of 13.5, INR of 1, APTT of 29, D-dimer of 0.85. Chem panel revealed sodium of 139, potassium 3.3, chloride 102, carbon dioxide 26, BUN 14, creatinine 0.71, glucose 111. Lactic acid 1.6, down from a high of 2.4. Calcium 8.8, phosphorus 1.6, magnesium 2.1. Ferritin 67, total bilirubin 0.6, AST 21, ALT 10, alkaline phosphatase 69, lactate dehydrogenase 292. Troponin less than 0.1. C-reactive protein 0.69. BNP less than 10. Serum total protein 7.8, globulin 3.9, vitamin B12 of 489, folate 11.3, procalcitonin 0.04. Blood cultures were drawn from the left and right arm, no growth has resulted within the past 48 hours prior to discharge. DISPOSITION: Stable. DISCHARGE INSTRUCTIONS: 1. Location: Home. 2. Diet: Heart healthy with low-sodium. 3. Activity: No restrictions. 4. Followup: The patient was encouraged to follow up with her primary care provider in approximately 1 to 2 weeks in order to discuss her most recent hospitalization and ongoing management of multiple chronic medical conditions. Job ID: [id number]
--- NOTE | 2020-08-31 13:37 | EKG ---
Test Reason : Blood Pressure : / mmHG Vent. Rate : 087 BPM Atrial Rate : 087 BPM P-R Int : 162 ms QRS Dur : 080 ms QT Int : 432 ms P-R-T Axes : 068 060 052 degrees QTc Int : 519 ms Sinus rhythm with occasional Premature ventricular complexes Cannot rule out Anterior infarct , age undetermined Prolonged QT Abnormal ECG Confirmed by SONNY MARTIN, JAVIER ([id number]), editor house organ FRED SIGALA ([id number]) on 08/31/2020 1:37:22 PM Referred By: Confirmed By:JAVIER DENNIS MD
== END 2020-08-28 12:47 | disposition home or self-care (01) | DRG 871 ==
LOC: ERS 10:11 → T4-A 13:57
PROVIDERS: ADMIT Family Medicine; ATTEND Family Medicine
PROC: 8E0ZXY6 Isolation (ICD-10-PCS; principal; 2020-08-26)
PROC: XW13325 Transfusion of Convalescent Plasma (Nonautologous) into Peripheral Vein, Percutaneous Approach, New Technology Group 5 (ICD-10-PCS; 2020-08-26)
PROC: XW033E5 Introduction of Remdesivir Anti-infective into Peripheral Vein, Percutaneous Approach, New Technology Group 5 (ICD-10-PCS; 2020-08-26)
DX: A41.89 Other specified sepsis (principal); U07.1 COVID-19; J12.82 Pneumonia due to coronavirus disease 2019; J96.01 Acute respiratory failure with hypoxia; I13.0 Hypertensive heart and chronic kidney disease with heart failure and stage 1 through stage 4 chronic kidney disease, or unspecified chronic kidney disease; J43.9 Emphysema, unspecified; I50.9 Heart failure, unspecified; N18.9 Chronic kidney disease, unspecified; Z79.51 Long term (current) use of inhaled steroids; Z79.899 Other long term (current) drug therapy; Z79.52 Long term (current) use of systemic steroids; D63.1 Anemia in chronic kidney disease
CPT/HCPCS: 36415; 36430; 71045; 80053; 82607; 82728; 82746; 83605; 83615; 83735; 83880; 84100; 84145; 84484; 85007; 85025; 85027; 85379; 85610; 85730; 86140; 86850; 86900; 86901; 87040; 93005; 96374; J1100; J1650; J7050; J8540; P9017

== ENCOUNTER 2021-01-16 09:27 | Inpatient (IN) | payer MEDICARE ==
[2021-01-16] MEDS ORDERED: methylPREDNISolone Sod Succ/PF 125 MG/2 ML VIAL ONE (09:47)
[2021-01-16] MEDS ORDERED: cefTRIAXone\\ROCEPHIN 1 GM VIAL ONE (09:47)
[2021-01-16 10:10] LABS: PTT 28.4 sec (22.9-36.1)
[2021-01-16 10:20] LABS: ALT (SGPT) 9 U/L (8-55); AST (SGOT) 17 U/L (5-34); Albumin 4.1 g/dL (3.4-4.8); Alkaline Phosphatase 78 U/L (40-110); Anion Gap 12 mmol/L (10-20); BUN (Urea Nitrogen) 8 mg/dL (9.8-20.1); Bilirubin, Total 0.6 mg/dL (0.2-1.2); Calc. Creatinine Clearance 0 mL/min (70-130); Calcium 9.2 mg/dL (7.8-10.44); Carbon Dioxide 28 mmol/L (23-31); Chloride 103 mmol/L (98-107); Globulin 4.3 g/dL (2.4-3.5); Glucose 98 mg/dL (83-110); Potassium 3.8 mmol/L (3.5-5.1); Protein, Total 8.4 g/dL (5.8-8.1); Sodium 139 mmol/L (136-145)
[2021-01-16] MEDS ORDERED: Azithromycin 500 MG VIAL ONE (10:23)
[2021-01-16 10:38] LABS: #Basophils 0.1 thou/uL (0.0-0.2); #Eosinphils 0.3 thou/uL (0.0-0.7); #Lymphocytes 2.5 thou/uL (1.20-3.40); #Monocytes 0.5 thou/uL (0.11-0.59); #Neutrophils 3.5 thou/uL (1.40-6.50); %Basophils 1.6 % (0.0-1.0); %Eosinophils 4.3 % (0.0-10.0); %Lymphocytes 36.5 % (21.0-51.0); %Monocytes 6.7 % (0.0-10.0); %Neutrophils 50.9 % (42.0-75.0); MDiff Complete? YES; Macrocytosis SLIGHT = 6-15 cells (100X) (0-5/hpf); Mean Corpuscular HGB CONC 33.2 g/dL (32.0-36.0); Mean Corpuscular Hemoglobin 34.6 pg (27.0-31.0); Mean Platelet Volume 6.3 fL (7.4-10.4); Platelet Count 436 thou/uL (130-400); Platelet Morphology Comment Appears Increased; RBC Distribution Width 11.5 % (11.5-14.5); Red Blood Cell (RBC) Count 3.76 mill/uL (4.20-5.40)
[2021-01-16 10:56] LABS: SARS-CoV-2 NAA Rapid Test Not Detected (NotDetected)
[2021-01-16 10:56] LABS: Bacteria/HPF None Seen HPF (None Seen); Bilirubin Negative (Negative); Blood, Urine Trace (Negative); Clarity Clear (Clear); Glucose, Urine (Dipstick) Normal (Negative); Ketone, Urine Negative (Negative); Leukocyte Negative Leu/uL (Negative); Nitrite Negative (Negative); Protein, Urine (Dipstick) Negative (Neg-Trace); RBC/HPF 0-3 HPF (0-3); Specific Gravity, Urine 1.006 (1.002-1.036); Squamous Epithelial None Seen HPF (0-3); Urobilinogen Normal mg/dL (Less than 2); WBC/HPF 0-3 HPF (0-3)
[2021-01-16] MEDS ORDERED: Albuterol Sulfate 2.5 mg/3 ml Neb NEB PRN (11:44)
[2021-01-16] MEDS ORDERED: Acetaminophen 325 MG TAB PO PRN (11:44)
[2021-01-16] MEDS ORDERED: Ondansetron ODT 4 MG TAB PO PRN (11:44)
[2021-01-16] MEDS ORDERED: Acetaminophen 650 MG Suppository PR PRN (11:44)
[2021-01-16] MEDS ORDERED: Ondansetron PF 4 MG/2 ML Vial IVP PRN (11:44)
[2021-01-16] MEDS ORDERED: methylPREDNISolone Sod Succ 40 MG VIAL IVP SCH (12:00)
[2021-01-16] MEDS ORDERED: Bacteriostatic Water 30 ML VIAL FS PRN (12:15)
[2021-01-16 13:17] LABS: Troponin I Less than 0.010 ng/mL (< 0.028)
[2021-01-16 14:56] VITALS: BMI 19.6
[2021-01-16] MEDS: methylPREDNISolone Sod Succ 40 MG VIAL IVP SCH ×2 (15:38→20:42)
[2021-01-16 15:49] LABS: Troponin I Less than 0.010 ng/mL (< 0.028)
[2021-01-17] MEDS: methylPREDNISolone Sod Succ 40 MG VIAL IVP SCH (02:58)
[2021-01-17 05:08] LABS: Anion Gap 15 mmol/L (10-20); BUN (Urea Nitrogen) 13 mg/dL (9.8-20.1); Calc. Creatinine Clearance 46 mL/min (70-130); Calcium 8.6 mg/dL (7.8-10.44); Carbon Dioxide 25 mmol/L (23-31); Chloride 103 mmol/L (98-107); Glucose 142 mg/dL (83-110); Potassium 4.1 mmol/L (3.5-5.1); Sodium 139 mmol/L (136-145)
[2021-01-17 05:16] LABS: #Lymphocytes 1.3 thou/uL (1.20-3.40); #Monocytes 0.2 thou/uL (0.11-0.59); #Neutrophils 4.2 thou/uL (1.40-6.50); %Basophils 0.6 % (0.0-1.0); %Eosinophils 0.1 % (0.0-10.0); %Lymphocytes 23.2 % (21.0-51.0); %Monocytes 2.8 % (0.0-10.0); %Neutrophils 73.3 % (42.0-75.0); Hemoglobin 12.6 g/dL (12.0-16.0); MDiff Complete? YES; Macrocytosis MODERATE=16-30 cells (100X) (0-5/hpf); Mean Corpuscular HGB CONC 33.6 g/dL (32.0-36.0); Mean Corpuscular Hemoglobin 35.4 pg (27.0-31.0); Mean Platelet Volume 6.4 fL (7.4-10.4); Platelet Count 427 thou/uL (130-400); RBC Distribution Width 11.6 % (11.5-14.5); Red Blood Cell (RBC) Count 3.57 mill/uL (4.20-5.40); White Blood Cell (WBC) Count 5.7 thou/uL (4.8-10.8)
[2021-01-17] MEDS: Enoxaparin Sodium 30 MG/0.3 ML SYRINGE SC SCH (09:51)
[2021-01-17] MEDS: Amlodipine 5 MG TAB PO SCH (09:52)
[2021-01-17] MEDS: predniSONE 20 MG TAB PO SCH (09:52)
[2021-01-17] MEDS: cefTRIAXone\\ROCEPHIN 1 GM in Sodium Chloride 0.9% 100 ML IVPB SCH (09:52)
[2021-01-17] MEDS: Folic Acid 1 MG TAB PO SCH ×2 (09:53→21:11)
[2021-01-17] MEDS: Azithromycin 500 MG in Sodium Chloride 0.9% 250 ML 250 ML IVPB SCH (13:29)
[2021-01-18 04:39] LABS: #Basophils 0.1 thou/uL (0.0-0.2); #Lymphocytes 2.8 thou/uL (1.20-3.40); %Basophils 1.1 % (0.0-1.0); %Eosinophils 0.2 % (0.0-10.0); %Lymphocytes 25.8 % (21.0-51.0); %Monocytes 8.8 % (0.0-10.0); %Neutrophils 64.2 % (42.0-75.0); Hemoglobin 11.8 g/dL (12.0-16.0); Mean Corpuscular Hemoglobin 34.8 pg (27.0-31.0); Platelet Count 410 thou/uL (130-400); RBC Distribution Width 11.7 % (11.5-14.5); Red Blood Cell (RBC) Count 3.39 mill/uL (4.20-5.40); White Blood Cell (WBC) Count 10.8 thou/uL (4.8-10.8)
[2021-01-18 05:03] LABS: Anion Gap 9 mmol/L (10-20); BUN (Urea Nitrogen) 12 mg/dL (9.8-20.1); Calc. Creatinine Clearance 54 mL/min (70-130); Calcium 8.7 mg/dL (7.8-10.44); Carbon Dioxide 31 mmol/L (23-31); Chloride 105 mmol/L (98-107); Glucose 98 mg/dL (83-110); Potassium 3.6 mmol/L (3.5-5.1); Sodium 141 mmol/L (136-145)
[2021-01-18] MEDS: Enoxaparin Sodium 30 MG/0.3 ML SYRINGE SC SCH (08:07)
[2021-01-18] MEDS: predniSONE 20 MG TAB PO SCH (08:07)
[2021-01-18] MEDS: Amlodipine 5 MG TAB PO SCH (08:08)
[2021-01-18] MEDS: Folic Acid 1 MG TAB PO SCH ×2 (08:08→21:39)
[2021-01-18] MEDS: cefTRIAXone\\ROCEPHIN 1 GM in Sodium Chloride 0.9% 100 ML IVPB SCH (10:21)
[2021-01-18] MEDS: Azithromycin 500 MG in Sodium Chloride 0.9% 250 ML 250 ML IVPB SCH (11:23)
[2021-01-18] MEDS ORDERED: Saccharomyces boulardii 250 MG CAP PO SCH (21:00)
[2021-01-18] MEDS: Cefdinir 300 MG CAP PO SCH (21:39)
[2021-01-19 06:23] LABS: Hemoglobin 12.2 g/dL (12.0-16.0); Mean Corpuscular HGB CONC 33.2 g/dL (32.0-36.0); Mean Corpuscular Hemoglobin 34.9 pg (27.0-31.0); Mean Platelet Volume 6.3 fL (7.4-10.4); Platelet Count 415 thou/uL (130-400); RBC Distribution Width 11.8 % (11.5-14.5); White Blood Cell (WBC) Count 10.9 thou/uL (4.8-10.8)
[2021-01-19 06:36] LABS: Anion Gap 12 mmol/L (10-20); BUN (Urea Nitrogen) 10 mg/dL (9.8-20.1); Calc. Creatinine Clearance 49 mL/min (70-130); Calcium 8.4 mg/dL (7.8-10.44); Carbon Dioxide 27 mmol/L (23-31); Chloride 105 mmol/L (98-107); Glucose 89 mg/dL (83-110); Potassium 3.8 mmol/L (3.5-5.1); Sodium 140 mmol/L (136-145)
[2021-01-19 06:48] LABS: Eosinophils 3 % (0-10); Lymphocytes 38 % (21-51); MDiff Complete? YES; Monocytes 8 % (0-10); Neutrophil 51 % (42-75)
[2021-01-19] MEDS: predniSONE 20 MG TAB PO SCH (08:50)
[2021-01-19] MEDS: Enoxaparin Sodium 30 MG/0.3 ML SYRINGE SC SCH (08:51)
[2021-01-19] MEDS: Cefdinir 300 MG CAP PO SCH (08:51)
[2021-01-19] MEDS: Folic Acid 1 MG TAB PO SCH (08:51)
[2021-01-19] MEDS: Amlodipine 5 MG TAB PO SCH (08:51)
[2021-01-19 12:23] VITALS: BP 114/73; TEMP 97.6
== END 2021-01-19 14:38 | disposition home or self-care (01) | DRG 193 ==
LOC: ERS 09:27 → ERHOLD 11:27 → 2NO 14:20 → T4-B 01-18 12:58
PROVIDERS: ADMIT Internal Medicine; ATTEND Hospitalist
DX: J18.9 Pneumonia, unspecified organism (principal); J96.21 Acute and chronic respiratory failure with hypoxia; J44.1 Chronic obstructive pulmonary disease with (acute) exacerbation; J45.901 Unspecified asthma with (acute) exacerbation; Z20.822 Contact with and (suspected) exposure to COVID-19; I11.0 Hypertensive heart disease with heart failure; I50.9 Heart failure, unspecified; Z79.899 Other long term (current) drug therapy; Z28.21 Immunization not carried out because of patient refusal; Z99.81 Dependence on supplemental oxygen; Z79.52 Long term (current) use of systemic steroids; Z86.16 Personal history of COVID-19
CPT/HCPCS: 0240U; 36415; 51701; 71045; 80048; 80053; 81003; 81015; 83605; 83735; 83880; 84484; 85025; 85610; 85730; 87040; 87070; 87205; 93005; 94640; 94760; 96365; 96367; 96375; J0456; J0696; J1650; J2920; J2930; J3490; J7050; J7512; J7611; J7620

== ENCOUNTER 2021-02-10 14:27 | Outpatient (CLI) | payer MEDICARE ==
[~2021-02-10 14:27] MED LIST: Iopamidol 370 76% 100 ML VIAL ONE
== END 2021-02-10 14:28 | disposition home or self-care (01) ==
LOC: BICCT 14:27
PROVIDERS: ATTEND Family Medicine
DX: J96.11 Chronic respiratory failure with hypoxia (principal); R91.1 Solitary pulmonary nodule
CPT/HCPCS: 71260; Q9967

== ENCOUNTER 2021-02-17 12:10 | Emergency (ER) | payer MEDICARE ==
[2021-02-17 13:18] LABS: #Basophils 0.1 thou/uL (0.0-0.2); #Eosinphils 0.3 thou/uL (0.0-0.7); #Lymphocytes 2.3 thou/uL (1.20-3.40); #Monocytes 0.4 thou/uL (0.11-0.59); #Neutrophils 2.5 thou/uL (1.40-6.50); %Basophils 1.1 % (0.0-1.0); %Eosinophils 4.9 % (0.0-10.0); %Lymphocytes 41.4 % (21.0-51.0); %Monocytes 7.6 % (0.0-10.0); Hemoglobin 12.1 g/dL (12.0-16.0); Mean Corpuscular HGB CONC 32.8 g/dL (32.0-36.0); Mean Corpuscular Hemoglobin 34.5 pg (27.0-31.0); Platelet Count 488 thou/uL (130-400); RBC Distribution Width 11.7 % (11.5-14.5); White Blood Cell (WBC) Count 5.4 thou/uL (4.8-10.8)
[2021-02-17 13:48] LABS: ALT (SGPT) 8 U/L (8-55); AST (SGOT) 17 U/L (5-34); Alkaline Phosphatase 65 U/L (40-110); Anion Gap 16 mmol/L (10-20); BUN (Urea Nitrogen) 8 mg/dL (9.8-20.1); Bilirubin, Total 0.6 mg/dL (0.2-1.2); Calc. Creatinine Clearance 0 mL/min (70-130); Calcium 9.4 mg/dL (7.8-10.44); Carbon Dioxide 25 mmol/L (23-31); Chloride 102 mmol/L (98-107); Globulin 3.6 g/dL (2.4-3.5); Glucose 91 mg/dL (83-110); Potassium 3.3 mmol/L (3.5-5.1); Protein, Total 7.6 g/dL (5.8-8.1); Sodium 140 mmol/L (136-145)
== END 2021-02-17 16:05 | disposition home or self-care (01) ==
LOC: ERS 12:10
DX: R06.00 Dyspnea, unspecified (principal); R09.81 Nasal congestion; J43.9 Emphysema, unspecified; I50.9 Heart failure, unspecified
CPT/HCPCS: 36415; 71046; 80053; 83880; 84484; 85025; 93005

== ENCOUNTER 2021-04-23 10:04 | Outpatient (CLI) | payer MEDICARE | END 2021-04-23 10:05 | disposition home or self-care (01) | LOC: RAD 10:04 | PROVIDERS: ATTEND Family Medicine | DX: M54.2 Cervicalgia (principal); M47.812 Spondylosis without myelopathy or radiculopathy, cervical region; M43.12 Spondylolisthesis, cervical region | CPT/HCPCS: 72040 ==

== ENCOUNTER 2021-05-06 20:11 | Emergency (ER) | payer MEDICARE ==
[2021-05-06 21:46] LABS: #Eosinphils 0.5 thou/uL (0.0-0.7); #Lymphocytes 2.5 thou/uL (1.20-3.40); #Monocytes 0.5 thou/uL (0.11-0.59); #Neutrophils 2.8 thou/uL (1.40-6.50); %Basophils 0.5 % (0.0-1.0); %Eosinophils 7.9 % (0.0-10.0); %Lymphocytes 39.2 % (21.0-51.0); %Monocytes 8.4 % (0.0-10.0); Hemoglobin 12.4 g/dL (12.0-16.0); Mean Corpuscular HGB CONC 33.2 g/dL (32.0-36.0); Mean Corpuscular Hemoglobin 34.9 pg (27.0-31.0); Mean Platelet Volume 6.2 fL (7.4-10.4); Platelet Count 404 thou/uL (130-400); RBC Distribution Width 11.5 % (11.5-14.5); Red Blood Cell (RBC) Count 3.54 mill/uL (4.20-5.40); White Blood Cell (WBC) Count 6.5 thou/uL (4.8-10.8)
[2021-05-06] MEDS ORDERED: Ketorolac Tromethamine 30 MG/ML VIAL ONE (22:05)
[2021-05-06] MEDS ORDERED: Morphine 4 MG/ML VIAL ONE (22:05)
[2021-05-06 22:09] LABS: ALT (SGPT) 10 U/L (8-55); AST (SGOT) 15 U/L (5-34); Albumin 3.9 g/dL (3.4-4.8); Alkaline Phosphatase 79 U/L (40-110); Anion Gap 14 mmol/L (10-20); BUN (Urea Nitrogen) 6 mg/dL (9.8-20.1); Bilirubin, Total 0.5 mg/dL (0.2-1.2); Calc. Creatinine Clearance 0 mL/min (70-130); Calcium 9.2 mg/dL (7.8-10.44); Carbon Dioxide 28 mmol/L (23-31); Chloride 103 mmol/L (98-107); Globulin 3.5 g/dL (2.4-3.5); Glucose 110 mg/dL (83-110); Protein, Total 7.4 g/dL (5.8-8.1); Sodium 141 mmol/L (136-145)
== END 2021-05-06 22:53 | disposition home or self-care (01) ==
LOC: ERS 20:11
DX: J32.9 Chronic sinusitis, unspecified (principal); J43.9 Emphysema, unspecified; I10 Essential (primary) hypertension; E78.00 Pure hypercholesterolemia, unspecified
CPT/HCPCS: 36415; 70450; 80053; 85025; 96372; J1885; J2270

== ENCOUNTER 2021-07-23 07:12 | Observation (INO) | payer MEDICARE ==
[2021-07-23] MEDS ORDERED: Furosemide 40 MG/4 ML VIAL ONE (07:47)
[2021-07-23 07:55] LABS: Hemoglobin 12.2 g/dL (12.0-16.0); Mean Platelet Volume 6.1 fL (7.4-10.4); Platelet Count 428 thou/uL (130-400); RBC Distribution Width 11.5 % (11.5-14.5); White Blood Cell (WBC) Count 6.8 thou/uL (4.8-10.8)
[2021-07-23] MEDS ORDERED: Ipratropium Bromide 2.5 ml Neb ONE (08:07)
[2021-07-23] MEDS ORDERED: Albuterol Sulfate 2.5 mg/0.5 ml Neb ONE (08:08)
[2021-07-23 08:10] LABS: Eosinophils 7 % (0-10); Lymphocytes 57 % (21-51); MDiff Complete? YES; Macrocytosis SLIGHT = 6-15 cells (100X) (0-5/hpf); Monocytes 7 % (0-10); Neutrophil 29 % (42-75); Platelet Morphology Comment Appears Increased; Polychromasia SLIGHT = 2-3 cells (100X) (0-2/hpf)
[2021-07-23] MEDS ORDERED: Albuterol 200 PUFF (6.7GM INHALER) ONE (08:11)
[2021-07-23 08:16] LABS: ALT (SGPT) 9 U/L (8-55); AST (SGOT) 17 U/L (5-34); Albumin 4.3 g/dL (3.4-4.8); Alkaline Phosphatase 84 U/L (40-110); Anion Gap 12 mmol/L (10-20); BUN (Urea Nitrogen) 6 mg/dL (9.8-20.1); Bilirubin, Total 0.8 mg/dL (0.2-1.2); Calc. Creatinine Clearance 0 mL/min (70-130); Calcium 9.5 mg/dL (7.8-10.44); Carbon Dioxide 30 mmol/L (23-31); Chloride 102 mmol/L (98-107); Globulin 4.5 g/dL (2.4-3.5); Glucose 94 mg/dL (83-110); Potassium 3.2 mmol/L (3.5-5.1); Protein, Total 8.8 g/dL (5.8-8.1); Sodium 141 mmol/L (136-145)
[2021-07-23] MEDS ORDERED: Ondansetron PF 4 MG/2 ML Vial ONE (08:41)
[2021-07-23] MEDS ORDERED: Morphine 4 MG/ML VIAL ONE (08:41)
[2021-07-23] MEDS ORDERED: Sodium Chloride 0.9% 100 ML ONE (09:19)
[2021-07-23] MEDS ORDERED: Piperacillin/Tazobactam 3.375 GM VIAL ONE (09:19)
[2021-07-23 10:41] LABS: Bilirubin Negative (Negative); Blood, Urine Negative (Negative); Clarity Clear (Clear); Glucose, Urine (Dipstick) Normal (Negative); Ketone, Urine Negative (Negative); Leukocyte Negative Leu/uL (Negative); Nitrite Negative (Negative); Protein, Urine (Dipstick) Negative (Neg-Trace); Specific Gravity, Urine 1.012 (1.002-1.036); Urobilinogen Normal mg/dL (Less than 2); pH, Urine 7.5 (5.0-9.0)
[2021-07-23 11:19] LABS: Lactic Acid 2.1 mmol/L (0.5-2.2)
[2021-07-23] MEDS ORDERED: Potassium Chloride 20 MEQ TAB PO SCH (12:45)
[2021-07-23] MEDS ORDERED: predniSONE 20 MG TAB PO SCH (12:45)
[2021-07-23] MEDS ORDERED: Sodium Chloride 0.9% 1,000 ML IV SCH (13:15)
[2021-07-23] MEDS ORDERED: Doxycycline 100 MG CAP PO SCH (13:45)
[2021-07-23 14:41] LABS: Troponin I Less than 0.010 ng/mL (< 0.028)
[2021-07-23] MEDS ORDERED: FLU VACC QS2021-22(65YR UP)/PF 240 MCG/0.7 ML SYRINGE IM ONE (14:45)
[2021-07-23] MEDS ORDERED: Heparin 25,000 units/D5W 500 ML IVPB SCH (16:00)
[2021-07-23] MEDS ORDERED: Heparin 10,000 UNITS/ 10 ML VIAL SLOW IVP SCH (16:00)
[2021-07-23 16:06] LABS: SARS-CoV-2 NAA Rapid Test Not Detected (NotDetected)
[2021-07-23 16:14] LABS: Hemoglobin 11.7 g/dL (12.0-16.0); Platelet Count 411 thou/uL (130-400)
[2021-07-23 16:37] LABS: Troponin I Less than 0.010 ng/mL (< 0.028)
[2021-07-23] MEDS: Budesonide 0.5 MG/2 ML NEB NEB SCH (18:46)
[2021-07-23] MEDS: Arformoterol 15 MCG/2 ML NEB NEB SCH (18:49)
[2021-07-23] MEDS: Doxycycline 100 MG CAP PO SCH (20:14)
[2021-07-23 23:21] LABS: PTT 144.5 sec (22.9-36.1)
[2021-07-24 04:59] LABS: #Lymphocytes 1.6 thou/uL (1.20-3.40); #Monocytes 0.4 thou/uL (0.11-0.59); #Neutrophils 4.1 thou/uL (1.40-6.50); %Basophils 0.2 % (0.0-1.0); %Eosinophils 0.2 % (0.0-10.0); %Lymphocytes 26.5 % (21.0-51.0); %Monocytes 6.9 % (0.0-10.0); %Neutrophils 66.2 % (42.0-75.0); Hemoglobin 11.1 g/dL (12.0-16.0); Mean Corpuscular Hemoglobin 34.7 pg (27.0-31.0); Platelet Count 347 thou/uL (130-400); RBC Distribution Width 11.5 % (11.5-14.5); White Blood Cell (WBC) Count 6.2 thou/uL (4.8-10.8)
[2021-07-24 05:28] LABS: Anion Gap 14 mmol/L (10-20); BUN (Urea Nitrogen) 12 mg/dL (9.8-20.1); Calc. Creatinine Clearance 46 mL/min (70-130); Calcium 8.7 mg/dL (7.8-10.44); Carbon Dioxide 22 mmol/L (23-31); Chloride 105 mmol/L (98-107); Glucose 105 mg/dL (83-110); Potassium 4.2 mmol/L (3.5-5.1); Sodium 137 mmol/L (136-145)
[2021-07-24] MEDS: Arformoterol 15 MCG/2 ML NEB NEB SCH ×2 (06:26→18:15)
[2021-07-24] MEDS: Budesonide 0.5 MG/2 ML NEB NEB SCH ×2 (06:30→18:16)
[2021-07-24] MEDS: Doxycycline 100 MG CAP PO SCH ×2 (08:28→20:23)
[2021-07-24] MEDS: predniSONE 20 MG TAB PO SCH (08:28)
[2021-07-24] MEDS: Amlodipine 10 MG TAB PO SCH (08:29)
[2021-07-24] MEDS ORDERED: Enoxaparin Sodium 30 MG/0.3 ML SYRINGE SC SCH (09:00)
[2021-07-24 16:46] VITALS: BMI 18.7
[2021-07-25 04:55] LABS: #Lymphocytes 3.1 thou/uL (1.20-3.40); #Monocytes 0.8 thou/uL (0.11-0.59); #Neutrophils 5.8 thou/uL (1.40-6.50); %Basophils 0.3 % (0.0-1.0); %Eosinophils 0.2 % (0.0-10.0); %Lymphocytes 31.5 % (21.0-51.0); %Monocytes 8.3 % (0.0-10.0); %Neutrophils 59.6 % (42.0-75.0); Hemoglobin 11.2 g/dL (12.0-16.0); Mean Corpuscular HGB CONC 31.1 g/dL (32.0-36.0); Mean Corpuscular Hemoglobin 33.8 pg (27.0-31.0); Mean Platelet Volume 6.1 fL (7.4-10.4); Platelet Count 397 thou/uL (130-400); RBC Distribution Width 11.7 % (11.5-14.5); Red Blood Cell (RBC) Count 3.32 mill/uL (4.20-5.40); White Blood Cell (WBC) Count 9.7 thou/uL (4.8-10.8)
[2021-07-25 05:21] LABS: Anion Gap 13 mmol/L (10-20); BUN (Urea Nitrogen) 14 mg/dL (9.8-20.1); Calc. Creatinine Clearance 46 mL/min (70-130); Calcium 9.5 mg/dL (7.8-10.44); Carbon Dioxide 26 mmol/L (23-31); Chloride 105 mmol/L (98-107); Glucose 90 mg/dL (83-110); Potassium 3.8 mmol/L (3.5-5.1); Sodium 140 mmol/L (136-145)
[2021-07-25] MEDS: Arformoterol 15 MCG/2 ML NEB NEB SCH (06:38)
[2021-07-25] MEDS: Budesonide 0.5 MG/2 ML NEB NEB SCH (06:39)
[2021-07-25] MEDS: Amlodipine 10 MG TAB PO SCH (08:12)
[2021-07-25] MEDS: Doxycycline 100 MG CAP PO SCH (08:12)
[2021-07-25] MEDS: predniSONE 20 MG TAB PO SCH (08:15)
[2021-07-25 12:00] VITALS: BP 124/65; TEMP 98
== END 2021-07-25 13:08 | disposition home or self-care (01) ==
LOC: ERS 07:12 → 2SW 12:08
PROVIDERS: ADMIT Family Medicine; ATTEND Internal Medicine
DX: J44.1 Chronic obstructive pulmonary disease with (acute) exacerbation (principal); J96.01 Acute respiratory failure with hypoxia; I11.0 Hypertensive heart disease with heart failure; I50.9 Heart failure, unspecified; N31.9 Neuromuscular dysfunction of bladder, unspecified; R07.89 Other chest pain; E86.0 Dehydration; E87.6 Hypokalemia; E78.5 Hyperlipidemia, unspecified; N13.30 Unspecified hydronephrosis; K42.9 Umbilical hernia without obstruction or gangrene; R64 Cachexia; Z68.1 Body mass index [BMI] 19.9 or less, adult; Z79.899 Other long term (current) drug therapy; Z20.822 Contact with and (suspected) exposure to COVID-19
CPT/HCPCS: 51702; 71045; 71046; 71275; 74177; 78451; 80048 ×2; 80053; 81003; 83605; 83735; 83880; 84484 ×2; 85014; 85018; 85025 ×3; 85049; 85379; 85730 ×4; 87040; 87070; 87086; 87205; 87631; 93005; 93306; 94640 ×4; 96365; 96366; 96367; 96375; 96376 ×2; 97116; 97139 ×3; 97535; 99285; A9540; G0378 ×4; U0002; 36415; J1644; J1940; J2270; J2405; J2543; J3490; J7050; J7512; J7611; J7620; J7626

== ENCOUNTER 2021-11-23 10:35 | Emergency (ER) | payer MEDICARE ==
[2021-11-23 12:15] LABS: #Basophils 0.1 thou/uL (0.0-0.2); #Eosinphils 0.2 thou/uL (0.0-0.7); #Lymphocytes 2.3 thou/uL (1.20-3.40); #Monocytes 0.4 thou/uL (0.11-0.59); #Neutrophils 3.1 thou/uL (1.40-6.50); %Basophils 0.9 % (0.0-1.0); %Eosinophils 3.3 % (0.0-10.0); %Lymphocytes 38.4 % (21.0-51.0); %Monocytes 6.8 % (0.0-10.0); %Neutrophils 50.5 % (42.0-75.0); Hemoglobin 11.1 g/dL (12.0-16.0); Mean Corpuscular HGB CONC 31.6 g/dL (32.0-36.0); Mean Corpuscular Hemoglobin 34.2 pg (27.0-31.0); Mean Platelet Volume 5.7 fL (7.4-10.4); Platelet Count 515 thou/uL (130-400); RBC Distribution Width 11.3 % (11.5-14.5); Red Blood Cell (RBC) Count 3.25 mill/uL (4.20-5.40); White Blood Cell (WBC) Count 6.1 thou/uL (4.8-10.8)
[2021-11-23 12:36] LABS: ALT (SGPT) 10 U/L (8-55); AST (SGOT) 17 U/L (5-34); Albumin 3.7 g/dL (3.4-4.8); Alkaline Phosphatase 84 U/L (40-110); Anion Gap 14 mmol/L (10-20); BUN (Urea Nitrogen) 5 mg/dL (9.8-20.1); Bilirubin, Total 0.7 mg/dL (0.2-1.2); Calc. Creatinine Clearance 0 mL/min (70-130); Carbon Dioxide 27 mmol/L (23-31); Chloride 102 mmol/L (98-107); Globulin 4.8 g/dL (2.4-3.5); Glucose 86 mg/dL (83-110); Protein, Total 8.5 g/dL (5.8-8.1); Sodium 139 mmol/L (136-145)
== END 2021-11-23 13:30 | disposition home or self-care (01) ==
LOC: ERS 10:35
DX: J01.90 Acute sinusitis, unspecified (principal); J43.9 Emphysema, unspecified; I11.0 Hypertensive heart disease with heart failure; I50.9 Heart failure, unspecified; E78.00 Pure hypercholesterolemia, unspecified
CPT/HCPCS: 36415; 71045; 80053; 85025

== ENCOUNTER 2022-01-01 09:45 | Outpatient (CLI) | payer MEDICARE | END 2022-01-01 09:46 | disposition home or self-care (01) | LOC: RAD 09:45 | PROVIDERS: ATTEND Internal Medicine Critical Care Medicine | DX: R06.00 Dyspnea, unspecified (principal) | CPT/HCPCS: 71046 ==

== ENCOUNTER 2022-01-19 10:41 | Inpatient (IN) | payer MEDICARE ==
[2022-01-19 11:23] LABS: Hemoglobin 10.4 g/dL (12.0-16.0); Mean Corpuscular HGB CONC 31.8 g/dL (32.0-36.0); Mean Corpuscular Hemoglobin 34.7 pg (27.0-31.0); Mean Platelet Volume 6.3 fL (7.4-10.4); Platelet Count 344 thou/uL (130-400); RBC Distribution Width 11.5 % (11.5-14.5); Red Blood Cell (RBC) Count 3.01 mill/uL (4.20-5.40); White Blood Cell (WBC) Count 5.1 thou/uL (4.8-10.8)
[2022-01-19 11:24] LABS: #Basophils 0.1 thou/uL (0.0-0.2); #Eosinphils 0.1 thou/uL (0.0-0.7); #Lymphocytes 1.9 thou/uL (1.20-3.40); #Monocytes 0.3 thou/uL (0.11-0.59); #Neutrophils 2.7 thou/uL (1.40-6.50); %Eosinophils 2.6 % (0.0-10.0); %Monocytes 5.9 % (0.0-10.0); %Neutrophils 52.5 % (42.0-75.0)
[2022-01-19 11:37] LABS: ALT (SGPT) 8 U/L (8-55); AST (SGOT) 16 U/L (5-34); Albumin 3.8 g/dL (3.4-4.8); Alkaline Phosphatase 83 U/L (40-110); Anion Gap 11 mmol/L (10-20); BUN (Urea Nitrogen) 8 mg/dL (9.8-20.1); Bilirubin, Total 0.6 mg/dL (0.2-1.2); Calc. Creatinine Clearance 0 mL/min (70-130); Calcium 9.1 mg/dL (7.8-10.44); Carbon Dioxide 32 mmol/L (23-31); Chloride 100 mmol/L (98-107); Globulin 3.9 g/dL (2.4-3.5); Glucose 86 mg/dL (83-110); Potassium 3.8 mmol/L (3.5-5.1); Protein, Total 7.7 g/dL (5.8-8.1); Sodium 139 mmol/L (136-145)
[2022-01-19 11:52] LABS: Hypochromia SLIGHT = 6-15 cells (100X) (0-5/hpf); MDiff Complete? YES; Macrocytosis SLIGHT = 6-15 cells (100X) (0-5/hpf); Platelet Morphology Comment Appears Adequate; Polychromasia SLIGHT = 2-3 cells (100X) (0-2/hpf)
[2022-01-19] MEDS ORDERED: Acetaminophen 325 MG TAB PO PRN (13:56)
[2022-01-19] MEDS ORDERED: Ondansetron ODT 4 MG TAB PO PRN (13:57)
[2022-01-19] MEDS ORDERED: Ondansetron PF 4 MG/2 ML Vial IVP PRN (13:57)
[2022-01-19] MEDS ORDERED: predniSONE 20 MG TAB PO SCH (14:03)
[2022-01-19] MEDS ORDERED: Nitroglycerin 0.4 MG TAB (25 Tab Bottle) SL PRN (14:22)
[2022-01-19 15:51] LABS: Magnesium 1.8 mg/dL (1.6-2.6)
[2022-01-19 16:21] LABS: SARS-CoV-2 NAA Rapid Test Not Detected (NotDetected)
[2022-01-19 18:50] LABS: Bacteria/HPF None Seen HPF (None Seen); Bilirubin Negative (Negative); Blood, Urine Negative (Negative); Clarity Clear (Clear); Glucose, Urine (Dipstick) Normal (Negative); Ketone, Urine Negative (Negative); Leukocyte 25 Leu/uL (Negative); Nitrite Negative (Negative); Protein, Urine (Dipstick) Negative (Neg-Trace); Specific Gravity, Urine 1.008 (1.002-1.036); Squamous Epithelial 0-3 HPF (0-3); Urobilinogen Normal mg/dL (Less than 2); WBC/HPF 0-3 HPF (0-3); pH, Urine 7.5 (5.0-9.0)
[2022-01-19] MEDS: Doxycycline 100 MG CAP PO SCH (20:35)
[2022-01-20] MEDS: Albuterol Sulfate 2.5 mg/3 ml Neb NEB PRN (01:05)
[2022-01-20 05:25] LABS: #Basophils 0.1 thou/uL (0.0-0.2); #Eosinphils 0.1 thou/uL (0.0-0.7); #Lymphocytes 1.8 thou/uL (1.20-3.40); #Monocytes 0.4 thou/uL (0.11-0.59); #Neutrophils 2.2 thou/uL (1.40-6.50); %Basophils 1.3 % (0.0-1.0); %Eosinophils 2.8 % (0.0-10.0); %Monocytes 8.2 % (0.0-10.0); %Neutrophils 47.7 % (42.0-75.0); Hemoglobin 9.8 g/dL (12.0-16.0); Mean Corpuscular HGB CONC 32.7 g/dL (32.0-36.0); Mean Corpuscular Hemoglobin 34.5 pg (27.0-31.0); Mean Platelet Volume 5.8 fL (7.4-10.4); Platelet Count 350 thou/uL (130-400); RBC Distribution Width 11.5 % (11.5-14.5); Red Blood Cell (RBC) Count 2.84 mill/uL (4.20-5.40); White Blood Cell (WBC) Count 4.5 thou/uL (4.8-10.8)
[2022-01-20 05:50] LABS: Anion Gap 9 mmol/L (10-20); BUN (Urea Nitrogen) 9 mg/dL (9.8-20.1); Calc. Creatinine Clearance 47 mL/min (70-130); Calcium 8.8 mg/dL (7.8-10.44); Carbon Dioxide 31 mmol/L (23-31); Chloride 101 mmol/L (98-107); Glucose 77 mg/dL (83-110); Potassium 3.3 mmol/L (3.5-5.1); Sodium 138 mmol/L (136-145)
[2022-01-20] MEDS ORDERED: predniSONE 20 MG TAB PO SCH (08:00)
[2022-01-20] MEDS ORDERED: Electrolyte Replacement Protocol 1 EACH FS SCH (08:30)
[2022-01-20] MEDS ORDERED: Potassium Chloride 20 MEQ TAB PO SCH (08:30)
[2022-01-20] MEDS ORDERED: Cyanocobalamin 1000 MCG/ML VIAL IM SCH (08:30)
[2022-01-20] MEDS ORDERED: Magnesium 2 GM/50 ML(in water) 2 GM in Premix Bag 1 BAG IVPB SCH (11:00)
[2022-01-20 13:54] VITALS: BMI 16.9
[2022-01-20] MEDS ORDERED: Fluticasone Propionate Nasal Spray 16 gm Bottle NASAL SCH (15:30)
[2022-01-20] MEDS: methylPREDNISolone Sod Succ 40 MG VIAL IVP SCH (16:00)
[2022-01-20] MEDS: cefTRIAXone\\ROCEPHIN 1 GM in Sodium Chloride 0.9% 100 ML IVPB SCH (16:00)
[2022-01-20] MEDS ORDERED: Multivitamins, Adult 10 ML, Folic Acid 1 MG, Thiamine HCl 100 MG in Dextrose 5 %-0.45 %... IV SCH (16:00)
[2022-01-20] MEDS: Aspirin 81 mg Enteric Coated Tablet PO SCH (17:38)
[2022-01-20] MEDS: Doxycycline 100 MG CAP PO SCH ×2 (17:39→19:55)
[2022-01-20] MEDS: Folic Acid 1 MG TAB PO SCH (17:39)
[2022-01-20] MEDS: Mometasone 200 MCG/Formoterol 5 MCG 120 PUFF INHALER INH SCH (18:43)
[2022-01-20] MEDS: Cyanocobalamin (Vitamin B-12) 1,000 MCG TAB PO SCH (19:54)
[2022-01-20] MEDS: Fluticasone Propionate Nasal Spray 16 gm Bottle NASAL SCH (19:54)
[2022-01-20] MEDS ORDERED: Non-Formulary Item 1 EACH (Budesonide/Formoterol Fumarate [Budesonide-Formoterol 160-4.5] INH SCH (21:00)
[2022-01-20] MEDS ORDERED: Pantoprazole 40 MG VIAL IVP SCH (21:00)
[2022-01-20] MEDS: Heparin 5,000 UNITS/ML VIAL SC SCH (21:19)
[2022-01-21] MEDS: methylPREDNISolone Sod Succ 40 MG VIAL IVP SCH ×2 (03:36→15:33)
[2022-01-21] MEDS: Albuterol Sulfate 2.5 mg/3 ml Neb NEB PRN (04:32)
[2022-01-21 05:14] LABS: Anion Gap 14 mmol/L (10-20); BUN (Urea Nitrogen) 9 mg/dL (9.8-20.1); Calc. Creatinine Clearance 44 mL/min (70-130); Calcium 8.5 mg/dL (7.8-10.44); Carbon Dioxide 27 mmol/L (23-31); Chloride 101 mmol/L (98-107); Glucose 127 mg/dL (83-110); Magnesium 2.2 mg/dL (1.6-2.6); Potassium 3.5 mmol/L (3.5-5.1); Sodium 138 mmol/L (136-145)
[2022-01-21 05:37] LABS: Hemoglobin 10.6 g/dL (12.0-16.0); Mean Corpuscular HGB CONC 33.3 g/dL (32.0-36.0); Mean Corpuscular Hemoglobin 34.9 pg (27.0-31.0); Platelet Count 380 thou/uL (130-400); RBC Distribution Width 11.6 % (11.5-14.5); Red Blood Cell (RBC) Count 3.04 mill/uL (4.20-5.40)
[2022-01-21 05:52] LABS: Phosphorus 3.5 mg/dL (2.3-4.7)
[2022-01-21 06:01] LABS: Lymphocytes 40 % (21-51); MDiff Complete? YES; Monocytes 6 % (0-10); Neutrophil 54 % (42-75)
[2022-01-21] MEDS ORDERED: Potassium Chloride 20 MEQ TAB PO SCH (06:15)
[2022-01-21] MEDS: Mometasone 200 MCG/Formoterol 5 MCG 120 PUFF INHALER INH SCH ×2 (07:34→18:36)
[2022-01-21] MEDS: Potassium Chloride 20 MEQ in Premix Bag 1 BAG IVPB SCH ×2 (08:27→10:47)
[2022-01-21] MEDS: Heparin 5,000 UNITS/ML VIAL SC SCH ×2 (08:33→20:21)
[2022-01-21] MEDS: Fluticasone Propionate Nasal Spray 16 gm Bottle NASAL SCH ×2 (08:33→23:05)
[2022-01-21] MEDS: Folic Acid 1 MG TAB PO SCH ×2 (08:39→20:22)
[2022-01-21] MEDS: Doxycycline 100 MG CAP PO SCH ×2 (08:39→20:21)
[2022-01-21] MEDS: Aspirin 81 mg Enteric Coated Tablet PO SCH (08:39)
[2022-01-21] MEDS ORDERED: Scopolamine 1.5 mg/72 hour Patch TD SCH (12:00)
[2022-01-21] MEDS: cefTRIAXone\\ROCEPHIN 1 GM in Sodium Chloride 0.9% 100 ML IVPB SCH (15:38)
[2022-01-21] MEDS: Cyanocobalamin (Vitamin B-12) 1,000 MCG TAB PO SCH (20:22)
[2022-01-21] MEDS ORDERED: Cholecalciferol 1,000 UNITS (25 MCG) TAB PO SCH (21:00)
[2022-01-22] MEDS: methylPREDNISolone Sod Succ 40 MG VIAL IVP SCH (04:38)
[2022-01-22 06:04] LABS: Potassium 3.6 mmol/L (3.5-5.1)
[2022-01-22] MEDS: Mometasone 200 MCG/Formoterol 5 MCG 120 PUFF INHALER INH SCH (07:44)
[2022-01-22] MEDS ORDERED: pyridOXINE 50 MG (B6) TAB PO SCH (09:00)
[2022-01-22] MEDS: Doxycycline 100 MG CAP PO SCH (09:58)
[2022-01-22] MEDS: Aspirin 81 mg Enteric Coated Tablet PO SCH (09:58)
[2022-01-22] MEDS: Folic Acid 1 MG TAB PO SCH (09:58)
[2022-01-22] MEDS: Fluticasone Propionate Nasal Spray 16 gm Bottle NASAL SCH (10:01)
[2022-01-22] MEDS: Heparin 5,000 UNITS/ML VIAL SC SCH (11:04)
[2022-01-22 15:41] VITALS: BP 125/61; TEMP 97.1
[2022-01-22] MEDS ORDERED: predniSONE 20 MG TAB PO SCH (17:00)
== END 2022-01-22 16:17 | disposition home health service (06) | DRG 190 ==
LOC: ERS 10:41 → 2SW 14:51 → OBSVTOIN 01-21 09:16
PROVIDERS: ADMIT Family Medicine; ATTEND Internal Medicine
DX: J43.9 Emphysema, unspecified (principal); E43 Unspecified severe protein-calorie malnutrition; I50.32 Chronic diastolic (congestive) heart failure; Z68.1 Body mass index [BMI] 19.9 or less, adult; E78.5 Hyperlipidemia, unspecified; I11.0 Hypertensive heart disease with heart failure; H91.90 Unspecified hearing loss, unspecified ear; R07.9 Chest pain, unspecified; E87.6 Hypokalemia; E83.42 Hypomagnesemia; D51.9 Vitamin B12 deficiency anemia, unspecified; I08.1 Rheumatic disorders of both mitral and tricuspid valves; D52.9 Folate deficiency anemia, unspecified; K21.9 Gastro-esophageal reflux disease without esophagitis; E78.00 Pure hypercholesterolemia, unspecified; R13.10 Dysphagia, unspecified; Z20.822 Contact with and (suspected) exposure to COVID-19; Z79.899 Other long term (current) drug therapy
CPT/HCPCS: 36415; 71045; 74230; 80048; 80053; 81001; 82607; 82746; 83735; 83880; 84100; 84132; 84484; 85025; 93005; 94640; C9113; J0696; J1644; J2920; J3411; J3420; J3475; J3480; J3490; J7042; J7611; J7620; U0002

== ENCOUNTER 2022-08-20 13:58 | Emergency (ER) | payer MEDICARE ==
[2022-08-20 14:47] LABS: Hemoglobin 11.3 g/dL (12.0-16.0); Mean Corpuscular Hemoglobin 35.7 pg (27.0-31.0); Mean Platelet Volume 6.7 fL (7.4-10.4); Platelet Count 340 10x3/uL (130-400); RBC Distribution Width 11.5 % (11.5-14.5); Red Blood Cell (RBC) Count 3.16 mill/uL (4.20-5.40); White Blood Cell (WBC) Count 5.6 10x3/uL (4.8-10.8)
[2022-08-20 14:49] LABS: ALT (SGPT) 13 U/L (8-55); AST (SGOT) 23 U/L (5-34); Albumin 3.8 g/dL (3.4-4.8); Alkaline Phosphatase 91 U/L (40-110); Anion Gap 15 mmol/L (10-20); BUN (Urea Nitrogen) 16 mg/dL (9.8-20.1); Bilirubin, Total 0.5 mg/dL (0.2-1.2); Calc. Creatinine Clearance 0 mL/min (70-130); Calcium 9.2 mg/dL (7.8-10.44); Carbon Dioxide 26 mmol/L (23-31); Chloride 101 mmol/L (98-107); Estimated GFR 90; Glucose 79 mg/dL (83-110); Lipase 22 U/L (8-78); Potassium 3.9 mmol/L (3.5-5.1); Protein, Total 7.8 g/dL (5.8-8.1); Sodium 138 mmol/L (136-145)
[2022-08-20 15:06] LABS: #Eosinphils 0.2 thou/uL (0.0-0.7); #Lymphocytes 2.1 thou/uL (1.20-3.40); #Monocytes 0.6 thou/uL (0.11-0.59); #Neutrophils 2.7 thou/uL (1.40-6.50); %Basophils 0.7 % (0.0-1.0); %Eosinophils 4.1 % (0.0-10.0); %Lymphocytes 36.7 % (21.0-51.0); %Monocytes 10.1 % (0.0-10.0); %Neutrophils 48.4 % (42.0-75.0)
[2022-08-20 15:11] LABS: MDiff Complete? YES; Macrocytosis SLIGHT = 6-15 cells (100X) (0-5/hpf); Platelet Morphology Comment Appears Adequate; Polychromasia SLIGHT = 2-3 cells (100X) (0-2/hpf)
[2022-08-20 18:23] LABS: SARS-CoV-2 NAA Rapid Test Not Detected (NotDetected)
[2022-08-20] MEDS ORDERED: predniSONE 20 MG TAB ONE (18:36)
== END 2022-08-20 19:32 | disposition home or self-care (01) ==
LOC: ERS 13:58
DX: J44.1 Chronic obstructive pulmonary disease with (acute) exacerbation (principal); I11.0 Hypertensive heart disease with heart failure; I50.9 Heart failure, unspecified; E78.00 Pure hypercholesterolemia, unspecified; Z79.899 Other long term (current) drug therapy; Z20.822 Contact with and (suspected) exposure to COVID-19
CPT/HCPCS: 0240U; 71045; 80053; 83690; 83880; 84484; 85025; 93005; 94640; 99285; 36415; J7512; J7620

== ENCOUNTER 2022-09-26 07:19 | Inpatient (IN) | payer MEDICARE ==
[2022-09-26] MEDS ORDERED: methylPREDNISolone Sod Succ/PF 125 MG/2 ML VIAL ONE (07:31)
[2022-09-26] MEDS ORDERED: Ipratropium/Albuterol 3 ML NEB ONE ×3 (07:44→09:45)
[2022-09-26 07:56] LABS: #Basophils 0.1 thou/uL (0.0-0.2); #Eosinphils 0.3 thou/uL (0.0-0.7); #Lymphocytes 2.7 thou/uL (1.20-3.40); #Monocytes 0.5 thou/uL (0.11-0.59); #Neutrophils 2.4 thou/uL (1.40-6.50); %Basophils 1.5 % (0.0-1.0); %Eosinophils 5.4 % (0.0-10.0); %Monocytes 8.1 % (0.0-10.0); %Neutrophils 39.9 % (42.0-75.0); Hemoglobin 12.4 g/dL (12.0-16.0); Mean Corpuscular Hemoglobin 35.9 pg (27.0-31.0); Mean Platelet Volume 6.2 fL (7.4-10.4); Platelet Count 406 10x3/uL (130-400); RBC Distribution Width 11.5 % (11.5-14.5); Red Blood Cell (RBC) Count 3.44 mill/uL (4.20-5.40); White Blood Cell (WBC) Count 6.1 10x3/uL (4.8-10.8)
[2022-09-26] MEDS ORDERED: Magnesium 2 GM/50 ML(in water) 2 GM in Premix Bag 1 BAG IVPB SCH (08:00)
[2022-09-26 08:17] LABS: ALT (SGPT) 9 U/L (8-55); AST (SGOT) 18 U/L (5-34); Albumin 3.8 g/dL (3.4-4.8); Alkaline Phosphatase 79 U/L (40-110); Anion Gap 11 mmol/L (10-20); BUN (Urea Nitrogen) 6 mg/dL (9.8-20.1); Bilirubin, Total 0.6 mg/dL (0.2-1.2); Calc. Creatinine Clearance 0 mL/min (70-130); Calcium 9.2 mg/dL (7.8-10.44); Carbon Dioxide 33 mmol/L (23-31); Chloride 99 mmol/L (98-107); Estimated GFR 90; Globulin 4.2 g/dL (2.4-3.5); Glucose 98 mg/dL (83-110); Lipase 8 U/L (8-78); Potassium 3.3 mmol/L (3.5-5.1); Sodium 140 mmol/L (136-145)
[2022-09-26 09:22] LABS: SARS-CoV-2 NAA Rapid Test Not Detected (NotDetected)
[2022-09-26 09:32] LABS: Bilirubin Negative (Negative); Blood, Urine Negative (Negative); Clarity Clear (Clear); Glucose, Urine (Dipstick) Normal (Negative); Ketone, Urine Negative (Negative); Leukocyte Negative Leu/uL (Negative); Nitrite Negative (Negative); Protein, Urine (Dipstick) 10 mg/dL (Neg-Trace); Specific Gravity, Urine 1.007 (1.002-1.036); Urobilinogen Normal mg/dL (Less than 2); pH, Urine 7.5 (5.0-9.0)
[2022-09-26] MEDS ORDERED: HYDROcodone/Acetaminophen 5/325 mg Tablet PO PRN (10:12)
[2022-09-26] MEDS ORDERED: Acetaminophen 325 MG TAB PO PRN (10:12)
[2022-09-26] MEDS ORDERED: Ondansetron PF 4 MG/2 ML Vial IVP PRN (10:12)
[2022-09-26] MEDS ORDERED: Ipratropium/Albuterol 3 ML NEB NEB PRN (10:13)
[2022-09-26] MEDS ORDERED: ALPRAZolam 0.25 MG TAB PO PRN (10:19)
[2022-09-26] MEDS ORDERED: ALPRAZolam 0.25 MG TAB ONE (10:21)
[2022-09-26] MEDS ORDERED: Potassium Chloride 20 MEQ TAB PO SCH (11:30)
[2022-09-26 12:10] VITALS: BMI 15.3
[2022-09-26] MEDS: methylPREDNISolone Sod Succ 40 MG VIAL IVP SCH ×2 (12:26→18:08)
[2022-09-26] MEDS ORDERED: FLU VACC QS2022-23(65YR UP)/PF 240 MCG/0.7 ML SYRINGE IM ONE (12:45)
[2022-09-26] MEDS: Ipratropium/Albuterol 3 ML NEB NEB SCH ×2 (14:13→19:43)
[2022-09-26] MEDS: Mometasone/Formoterol 200/5 60 PUFF INH SCH (19:44)
[2022-09-26] MEDS: guaiFENesin ER 600 MG TAB PO SCH (21:47)
[2022-09-26] MEDS: Famotidine 20 MG TAB PO SCH (21:47)
[2022-09-27] MEDS: Ipratropium/Albuterol 3 ML NEB NEB SCH ×4 (00:51→18:50)
[2022-09-27] MEDS: methylPREDNISolone Sod Succ 40 MG VIAL IVP SCH ×5 (00:59→23:58)
[2022-09-27 06:39] LABS: #Lymphocytes 1.2 thou/uL (1.20-3.40); #Monocytes 0.2 thou/uL (0.11-0.59); #Neutrophils 6.6 thou/uL (1.40-6.50); %Eosinophils 0.2 % (0.0-10.0); %Lymphocytes 14.6 % (21.0-51.0); %Monocytes 2.2 % (0.0-10.0); %Neutrophils 82.9 % (42.0-75.0); Hemoglobin 11.3 g/dL (12.0-16.0); Mean Corpuscular HGB CONC 33.4 g/dL (32.0-36.0); Mean Corpuscular Hemoglobin 36.5 pg (27.0-31.0); Mean Platelet Volume 6.5 fL (7.4-10.4); Platelet Count 372 10x3/uL (130-400); RBC Distribution Width 11.6 % (11.5-14.5)
[2022-09-27 06:53] LABS: Anion Gap 12 mmol/L (10-20); BUN (Urea Nitrogen) 12 mg/dL (9.8-20.1); Calc. Creatinine Clearance 40 mL/min (70-130); Calcium 8.9 mg/dL (7.8-10.44); Carbon Dioxide 28 mmol/L (23-31); Chloride 102 mmol/L (98-107); Estimated GFR 87; Glucose 117 mg/dL (83-110); Potassium 4.2 mmol/L (3.5-5.1); Sodium 138 mmol/L (136-145)
[2022-09-27] MEDS: Mometasone/Formoterol 200/5 60 PUFF INH SCH ×2 (07:29→18:50)
[2022-09-27] MEDS: guaiFENesin ER 600 MG TAB PO SCH ×2 (08:29→19:55)
[2022-09-27] MEDS: Famotidine 20 MG TAB PO SCH ×2 (08:29→19:55)
[2022-09-28] MEDS: Ipratropium/Albuterol 3 ML NEB NEB SCH ×3 (00:21→16:24)
[2022-09-28] MEDS: methylPREDNISolone Sod Succ 40 MG VIAL IVP SCH ×3 (05:18→18:03)
[2022-09-28] MEDS: Mometasone/Formoterol 200/5 60 PUFF INH SCH (06:58)
[2022-09-28] MEDS: guaiFENesin ER 600 MG TAB PO SCH (08:31)
[2022-09-28] MEDS: Famotidine 20 MG TAB PO SCH (08:31)
[2022-09-28 08:42] VITALS: TEMP 98.1
[2022-09-28 18:39] VITALS: BP 168/72
== END 2022-09-28 18:25 | disposition home health service (06) | DRG 189 ==
LOC: ERS 07:19 → T4-A 09:50
PROVIDERS: ADMIT Family Medicine; ATTEND Internal Medicine
DX: J96.01 Acute respiratory failure with hypoxia (principal); J44.1 Chronic obstructive pulmonary disease with (acute) exacerbation; E87.6 Hypokalemia; F41.9 Anxiety disorder, unspecified; R53.1 Weakness; I50.9 Heart failure, unspecified; I11.0 Hypertensive heart disease with heart failure; E78.00 Pure hypercholesterolemia, unspecified; H91.90 Unspecified hearing loss, unspecified ear; Z20.822 Contact with and (suspected) exposure to COVID-19; Z79.51 Long term (current) use of inhaled steroids; Z79.899 Other long term (current) drug therapy; Z87.891 Personal history of nicotine dependence
CPT/HCPCS: 36415; 71045; 80048; 80053; 81003; 83605; 83690; 83880; 84484; 85025; 87040; 87086; 90471; 90662; 93005; 94640; G0008; J1650; J1956; J2920; J2930; J3475; J7620

== ENCOUNTER 2022-10-16 05:57 | Emergency (ER) | payer MEDICARE ==
[2022-10-16] MEDS ORDERED: methylPREDNISolone Sod Succ/PF 125 MG/2 ML VIAL ONE (06:07)
[2022-10-16 06:39] LABS: #Basophils 0.1 thou/uL (0.0-0.2); #Eosinphils 0.4 thou/uL (0.0-0.7); #Lymphocytes 1.9 thou/uL (1.20-3.40); #Monocytes 0.4 thou/uL (0.11-0.59); #Neutrophils 2.4 thou/uL (1.40-6.50); %Basophils 1.2 % (0.0-1.0); %Eosinophils 8.6 % (0.0-10.0); %Lymphocytes 36.1 % (21.0-51.0); %Monocytes 8.4 % (0.0-10.0); %Neutrophils 45.7 % (42.0-75.0); Hemoglobin 11.6 g/dL (12.0-16.0); Mean Corpuscular HGB CONC 32.8 g/dL (32.0-36.0); Mean Corpuscular Hemoglobin 36.3 pg (27.0-31.0); Mean Platelet Volume 6.5 fL (7.4-10.4); Platelet Count 337 10x3/uL (130-400); RBC Distribution Width 11.4 % (11.5-14.5); White Blood Cell (WBC) Count 5.2 10x3/uL (4.8-10.8)
[2022-10-16 07:02] LABS: ALT (SGPT) 11 U/L (8-55); AST (SGOT) 17 U/L (5-34); Albumin 3.7 g/dL (3.4-4.8); Alkaline Phosphatase 76 U/L (40-110); Anion Gap 9 mmol/L (10-20); BUN (Urea Nitrogen) 11 mg/dL (9.8-20.1); Bilirubin, Total 0.8 mg/dL (0.2-1.2); Calc. Creatinine Clearance 0 mL/min (70-130); Calcium 8.7 mg/dL (7.8-10.44); Carbon Dioxide 34 mmol/L (23-31); Chloride 100 mmol/L (98-107); Estimated GFR 90; Globulin 3.6 g/dL (2.4-3.5); Glucose 83 mg/dL (83-110); Magnesium 1.7 mg/dL (1.6-2.6); Potassium 3.3 mmol/L (3.5-5.1); Protein, Total 7.3 g/dL (5.8-8.1); Sodium 140 mmol/L (136-145)
[2022-10-16] MEDS ORDERED: Magnesium 2 GM/50 ML BAG (IN WATER) ONE (07:03)
== END 2022-10-16 09:10 | disposition home or self-care (01) ==
LOC: ERS 05:57
DX: J44.1 Chronic obstructive pulmonary disease with (acute) exacerbation (principal); I11.0 Hypertensive heart disease with heart failure; I50.9 Heart failure, unspecified; E78.00 Pure hypercholesterolemia, unspecified
CPT/HCPCS: 36415; 71045; 80053; 83735; 83880; 84484; 85025; 85379; 93005; 96365; 96375; J2930; J3475

== ENCOUNTER 2022-10-27 23:00 | Inpatient (IN) | payer MEDICARE ==
[2022-10-27] MEDS ORDERED: Albuterol 2.5 MG/0.5 ML NEB ONE (23:18)
[2022-10-27 23:33] LABS: #Basophils 0.1 thou/uL (0.0-0.2); #Eosinphils 0.5 thou/uL (0.0-0.7); #Lymphocytes 2.8 thou/uL (1.20-3.40); #Monocytes 0.7 thou/uL (0.11-0.59); #Neutrophils 4.5 thou/uL (1.40-6.50); %Eosinophils 5.9 % (0.0-10.0); %Lymphocytes 32.7 % (21.0-51.0); %Monocytes 7.7 % (0.0-10.0); %Neutrophils 52.8 % (42.0-75.0); Hemoglobin 11.8 g/dL (12.0-16.0); Mean Corpuscular HGB CONC 32.6 g/dL (32.0-36.0); Mean Corpuscular Hemoglobin 35.7 pg (27.0-31.0); Mean Platelet Volume 6.1 fL (7.4-10.4); Platelet Count 393 10x3/uL (130-400); RBC Distribution Width 11.6 % (11.5-14.5); Red Blood Cell (RBC) Count 3.31 mill/uL (4.20-5.40); White Blood Cell (WBC) Count 8.4 10x3/uL (4.8-10.8)
[2022-10-27 23:54] LABS: ALT (SGPT) 15 U/L (8-55); AST (SGOT) 22 U/L (5-34); Albumin 3.6 g/dL (3.4-4.8); Alkaline Phosphatase 78 U/L (40-110); Anion Gap 12 mmol/L (10-20); BUN (Urea Nitrogen) 8 mg/dL (9.8-20.1); Calc. Creatinine Clearance 0 mL/min (70-130); Calcium 9.2 mg/dL (7.8-10.44); Carbon Dioxide 31 mmol/L (23-31); Chloride 102 mmol/L (98-107); Estimated GFR 88; Globulin 3.2 g/dL (2.4-3.5); Glucose 116 mg/dL (83-110); Lipase 10 U/L (8-78); Potassium 3.8 mmol/L (3.5-5.1); Protein, Total 6.8 g/dL (5.8-8.1); Sodium 141 mmol/L (136-145)
[2022-10-28] MEDS ORDERED: Magnesium 2 GM/50 ML BAG (IN WATER) ONE (00:02)
[2022-10-28] MEDS ORDERED: methylPREDNISolone Sod Succ/PF 125 MG/2 ML VIAL ONE (00:02)
[2022-10-28] MEDS ORDERED: Aspirin 325 MG TAB ONE (00:02)
[2022-10-28 00:07] LABS: Bilirubin, Total 0.6 mg/dL (0.2-1.2)
[2022-10-28] MEDS ORDERED: cefTRIAXone\\ROCEPHIN 1 GM VIAL ONE (00:23)
[2022-10-28] MEDS ORDERED: Azithromycin 500 MG VIAL ONE (00:41)
[2022-10-28 00:47] LABS: SARS-CoV-2 NAA Rapid Test Not Detected (NotDetected)
[2022-10-28 00:52] LABS: CK (CPK) 92 U/L (29-168)
[2022-10-28] MEDS ORDERED: Acetaminophen 325 MG TAB PO PRN (01:01)
[2022-10-28] MEDS ORDERED: Ipratropium/Albuterol 3 ML NEB EZPAP PRN (01:03)
[2022-10-28 02:40] VITALS: BMI 14.0
[2022-10-28] MEDS: Ipratropium/Albuterol 3 ML NEB NEB SCH ×6 (03:05→22:43)
[2022-10-28 05:37] LABS: #Lymphocytes 0.6 thou/uL (1.20-3.40); #Monocytes 0.1 thou/uL (0.11-0.59); #Neutrophils 7.2 thou/uL (1.40-6.50); %Basophils 0.1 % (0.0-1.0); %Monocytes 1.5 % (0.0-10.0); %Neutrophils 90.3 % (42.0-75.0); Mean Corpuscular HGB CONC 32.1 g/dL (32.0-36.0); Mean Corpuscular Hemoglobin 35.4 pg (27.0-31.0); Mean Platelet Volume 6.3 fL (7.4-10.4); Platelet Count 355 10x3/uL (130-400); RBC Distribution Width 11.6 % (11.5-14.5); White Blood Cell (WBC) Count 7.9 10x3/uL (4.8-10.8)
[2022-10-28 05:53] LABS: Anion Gap 11 mmol/L (10-20); BUN (Urea Nitrogen) 9 mg/dL (9.8-20.1); Calc. Creatinine Clearance 36 mL/min (70-130); Calcium 8.8 mg/dL (7.8-10.44); Carbon Dioxide 31 mmol/L (23-31); Chloride 102 mmol/L (98-107); Estimated GFR 84; Glucose 133 mg/dL (83-110); Potassium 4.3 mmol/L (3.5-5.1); Sodium 140 mmol/L (136-145)
[2022-10-28] MEDS: methylPREDNISolone Sod Succ 40 MG VIAL IVP SCH ×4 (06:29→23:16)
[2022-10-28] MEDS: Escitalopram Oxalate 10 mg Tablet PO SCH (09:17)
[2022-10-28] MEDS: Atorvastatin Calcium 10 MG TAB PO SCH (09:17)
[2022-10-28] MEDS: Folic Acid 1 MG TAB PO SCH (09:18)
[2022-10-28] MEDS: Mometasone 200 MCG/Formoterol 5 MCG 120 PUFF INHALER INH SCH (18:27)
[2022-10-28] MEDS: cefTRIAXone\\ROCEPHIN 1 GM in Sodium Chloride 0.9% 100 ML IVPB SCH (23:15)
[2022-10-29] MEDS: Azithromycin 500 MG in Sodium Chloride 0.9% 250 ML 250 ML IVPB SCH (00:36)
[2022-10-29] MEDS: Ipratropium/Albuterol 3 ML NEB NEB SCH ×6 (02:03→23:07)
[2022-10-29] MEDS: methylPREDNISolone Sod Succ 40 MG VIAL IVP SCH ×4 (05:54→23:38)
[2022-10-29] MEDS: Mometasone 200 MCG/Formoterol 5 MCG 120 PUFF INHALER INH SCH ×2 (08:08→19:27)
[2022-10-29] MEDS: Folic Acid 1 MG TAB PO SCH (08:39)
[2022-10-29] MEDS: Escitalopram Oxalate 10 mg Tablet PO SCH (08:39)
[2022-10-29] MEDS: Atorvastatin Calcium 10 MG TAB PO SCH (08:40)
[2022-10-29] MEDS: cefTRIAXone\\ROCEPHIN 1 GM in Sodium Chloride 0.9% 100 ML IVPB SCH (23:38)
[2022-10-30] MEDS: Azithromycin 500 MG in Sodium Chloride 0.9% 250 ML 250 ML IVPB SCH (00:12)
[2022-10-30] MEDS: Ipratropium/Albuterol 3 ML NEB NEB SCH ×6 (02:15→22:11)
[2022-10-30 06:52] LABS: Hemoglobin 10.8 g/dL (12.0-16.0); Mean Corpuscular HGB CONC 32.7 g/dL (32.0-36.0); Mean Corpuscular Hemoglobin 36.4 pg (27.0-31.0); Mean Platelet Volume 6.9 fL (7.4-10.4); Platelet Count 339 10x3/uL (130-400); RBC Distribution Width 11.5 % (11.5-14.5); Red Blood Cell (RBC) Count 2.97 mill/uL (4.20-5.40); White Blood Cell (WBC) Count 14.1 10x3/uL (4.8-10.8)
[2022-10-30 07:13] LABS: Anion Gap 11 mmol/L (10-20); BUN (Urea Nitrogen) 20 mg/dL (9.8-20.1); Calc. Creatinine Clearance 41 mL/min (70-130); Calcium 8.8 mg/dL (7.8-10.44); Carbon Dioxide 32 mmol/L (23-31); Chloride 101 mmol/L (98-107); Estimated GFR 90; Glucose 105 mg/dL (83-110); Potassium 4.6 mmol/L (3.5-5.1); Sodium 139 mmol/L (136-145)
[2022-10-30] MEDS: Mometasone 200 MCG/Formoterol 5 MCG 120 PUFF INHALER INH SCH ×2 (07:26→19:05)
[2022-10-30] MEDS: Folic Acid 1 MG TAB PO SCH (10:09)
[2022-10-30] MEDS: Atorvastatin Calcium 10 MG TAB PO SCH (10:09)
[2022-10-30] MEDS: predniSONE 20 MG TAB PO SCH (10:09)
[2022-10-30] MEDS: Escitalopram Oxalate 10 mg Tablet PO SCH (10:09)
[2022-10-30] MEDS ORDERED: Famotidine 20 MG TAB PO SCH (23:00)
[2022-10-30] MEDS: cefTRIAXone\\ROCEPHIN 1 GM in Sodium Chloride 0.9% 100 ML IVPB SCH (23:17)
[2022-10-31] MEDS: Azithromycin 500 MG in Sodium Chloride 0.9% 250 ML 250 ML IVPB SCH (00:28)
[2022-10-31] MEDS: Ipratropium/Albuterol 3 ML NEB NEB SCH ×3 (01:42→10:03)
[2022-10-31 06:57] LABS: #Lymphocytes 2.1 thou/uL (1.20-3.40); #Monocytes 0.8 thou/uL (0.11-0.59); #Neutrophils 7.2 thou/uL (1.40-6.50); %Basophils 0.3 % (0.0-1.0); %Eosinophils 0.3 % (0.0-10.0); %Monocytes 7.5 % (0.0-10.0); Hemoglobin 10.5 g/dL (12.0-16.0); Mean Corpuscular HGB CONC 32.3 g/dL (32.0-36.0); Mean Corpuscular Hemoglobin 35.9 pg (27.0-31.0); Mean Platelet Volume 6.9 fL (7.4-10.4); Platelet Count 317 10x3/uL (130-400); RBC Distribution Width 11.4 % (11.5-14.5); Red Blood Cell (RBC) Count 2.93 mill/uL (4.20-5.40); White Blood Cell (WBC) Count 10.2 10x3/uL (4.8-10.8)
[2022-10-31] MEDS: Mometasone 200 MCG/Formoterol 5 MCG 120 PUFF INHALER INH SCH (06:58)
[2022-10-31 08:26] VITALS: BP 163/76; TEMP 97.9
[2022-10-31] MEDS: Escitalopram Oxalate 10 mg Tablet PO SCH (09:03)
[2022-10-31] MEDS: Atorvastatin Calcium 10 MG TAB PO SCH (09:03)
[2022-10-31] MEDS: predniSONE 20 MG TAB PO SCH (09:04)
[2022-10-31] MEDS: Folic Acid 1 MG TAB PO SCH (09:05)
[2022-10-31] MEDS ORDERED: Azithromycin 500 MG in Sodium Chloride 0.9% 250 ML 250 ML IVPB SCH (10:30)
[2022-10-31] MEDS ORDERED: cefTRIAXone\\ROCEPHIN 1 GM in Sodium Chloride 0.9% 100 ML IVPB SCH (10:30)
== END 2022-10-31 14:40 | disposition home or self-care (01) | DRG 189 ==
LOC: ERS 23:00 → IMCU/EMU 10-28 01:03 → T4-B 10-28 14:03
PROVIDERS: ADMIT Internal Medicine; ATTEND Internal Medicine
PROC: 5A09357 Assistance with Respiratory Ventilation, Less than 24 Consecutive Hours, Continuous Positive Airway Pressure (ICD-10-PCS; principal; 2022-10-28)
DX: J96.21 Acute and chronic respiratory failure with hypoxia (principal); J44.1 Chronic obstructive pulmonary disease with (acute) exacerbation; E44.0 Moderate protein-calorie malnutrition; Z68.1 Body mass index [BMI] 19.9 or less, adult; I10 Essential (primary) hypertension; E78.5 Hyperlipidemia, unspecified; H91.90 Unspecified hearing loss, unspecified ear; F39 Unspecified mood [affective] disorder; E78.00 Pure hypercholesterolemia, unspecified; Z20.822 Contact with and (suspected) exposure to COVID-19; Z79.51 Long term (current) use of inhaled steroids; Z79.899 Other long term (current) drug therapy
CPT/HCPCS: 36415; 71045; 80048; 80053; 82550; 83605; 83690; 83880; 84484; 85025; 85027; 93005; 94640; 94644; 94660; 96365; 96367; 96375; J0456; J0696; J1650; J2920; J2930; J3475; J3490; J7050; J7512; J7611; J7620

== ENCOUNTER 2022-11-20 16:11 | Emergency (ER) | payer MEDICARE ==
[2022-11-20 17:13] LABS: #Eosinphils 0.5 thou/uL (0.0-0.7); #Lymphocytes 2.3 thou/uL (1.20-3.40); #Monocytes 0.3 thou/uL (0.11-0.59); #Neutrophils 2.3 thou/uL (1.40-6.50); %Basophils 0.8 % (0.0-1.0); %Eosinophils 8.4 % (0.0-10.0); %Lymphocytes 42.3 % (21.0-51.0); %Monocytes 6.2 % (0.0-10.0); %Neutrophils 42.4 % (42.0-75.0); Hemoglobin 11.5 g/dL (12.0-16.0); Mean Corpuscular HGB CONC 33.1 g/dL (32.0-36.0); Mean Corpuscular Hemoglobin 36.1 pg (27.0-31.0); Mean Platelet Volume 6.6 fL (7.4-10.4); Platelet Count 305 10x3/uL (130-400); RBC Distribution Width 11.4 % (11.5-14.5); Red Blood Cell (RBC) Count 3.19 mill/uL (4.20-5.40); White Blood Cell (WBC) Count 5.5 10x3/uL (4.8-10.8)
[2022-11-20 17:22] LABS: Bacteria/HPF 2+ HPF (None Seen); Bilirubin Negative (Negative); Blood, Urine Trace (Negative); Clarity Clear (Clear); Glucose, Urine (Dipstick) Normal (Negative); Ketone, Urine Negative (Negative); Leukocyte Negative Leu/uL (Negative); Nitrite Negative (Negative); Protein, Urine (Dipstick) 10 mg/dL (Neg-Trace); Specific Gravity, Urine 1.022 (1.002-1.036); Squamous Epithelial None Seen HPF (0-3); WBC/HPF 0-3 HPF (0-3)
[2022-11-20 17:43] LABS: ALT (SGPT) 22 U/L (8-55); AST (SGOT) 30 U/L (5-34); Albumin 3.9 g/dL (3.4-4.8); Alkaline Phosphatase 84 U/L (40-110); Anion Gap 11 mmol/L (10-20); BUN (Urea Nitrogen) 15 mg/dL (9.8-20.1); Bilirubin, Total 0.3 mg/dL (0.2-1.2); Calc. Creatinine Clearance 0 mL/min (70-130); Calcium 9.6 mg/dL (7.8-10.44); Carbon Dioxide 30 mmol/L (23-31); Chloride 103 mmol/L (98-107); Estimated GFR 88; Globulin 4.1 g/dL (2.4-3.5); Glucose 92 mg/dL (83-110); Potassium 4.2 mmol/L (3.5-5.1); Sodium 140 mmol/L (136-145)
[2022-11-20] MEDS ORDERED: niCARdipine 25 MG/10 ML SDV ONE (18:25)
[2022-11-20 21:00] LABS: Actual Bicarbonate (HCO3v) 32 mEq/L (22-28); Base Excess 3.9 mEq/L (-2.0 to +3.0); Calcium, Ionized (venous) 1.14 mmol/L (1.16-1.32); Chloride (VBG) 101 mmol/L (98-106); Potassium (VBG) 3.73 mmol/L (3.70-5.30); Sodium 130.6 mmol/L (133-146)
== END 2022-11-20 20:31 | disposition home or self-care (01) ==
LOC: ERS 16:11
DX: J44.1 Chronic obstructive pulmonary disease with (acute) exacerbation (principal); I10 Essential (primary) hypertension; E78.00 Pure hypercholesterolemia, unspecified
CPT/HCPCS: 36415; 51701; 71045; 71275; 74177; 80053; 81003; 81015; 82805; 84484; 85025; 93005

== ENCOUNTER 2022-11-24 06:00 | Emergency (ER) | payer MEDICARE ==
[2022-11-24 06:39] LABS: Actual Bicarbonate (HCO3v) 23 mEq/L (22-28); Analyzer IN Cardio ER; Base Excess 1.5 mEq/L (-2.0 to +3.0); Calcium, Ionized (venous) 0.95 mmol/L (1.16-1.32); Chloride (VBG) 101 mmol/L (98-106); Sodium 136.9 mmol/L (133-146); pH (venous) 7.53 (7.32-7.43)
[2022-11-24 06:50] LABS: #Eosinphils 0.4 thou/uL (0.0-0.7); #Lymphocytes 1.6 thou/uL (1.20-3.40); #Monocytes 0.5 thou/uL (0.11-0.59); #Neutrophils 1.7 thou/uL (1.40-6.50); %Basophils 1.1 % (0.0-1.0); %Eosinophils 9.3 % (0.0-10.0); %Lymphocytes 36.9 % (21.0-51.0); %Monocytes 11.5 % (0.0-10.0); %Neutrophils 41.2 % (42.0-75.0); Hemoglobin 11.2 g/dL (12.0-16.0); Mean Corpuscular HGB CONC 32.7 g/dL (32.0-36.0); Mean Corpuscular Hemoglobin 35.4 pg (27.0-31.0); Mean Platelet Volume 6.4 fL (7.4-10.4); Platelet Count 390 10x3/uL (130-400); RBC Distribution Width 11.3 % (11.5-14.5); Red Blood Cell (RBC) Count 3.17 mill/uL (4.20-5.40); White Blood Cell (WBC) Count 4.2 10x3/uL (4.8-10.8)
[2022-11-24 07:10] LABS: ALT (SGPT) 16 U/L (8-55); AST (SGOT) 20 U/L (5-34); Albumin 3.8 g/dL (3.4-4.8); Alkaline Phosphatase 75 U/L (40-110); Anion Gap 10 mmol/L (10-20); BUN (Urea Nitrogen) 10 mg/dL (9.8-20.1); Bilirubin, Total 0.5 mg/dL (0.2-1.2); Calc. Creatinine Clearance 0 mL/min (70-130); Calcium 9.3 mg/dL (7.8-10.44); Carbon Dioxide 32 mmol/L (23-31); Chloride 102 mmol/L (98-107); Estimated GFR 89; Globulin 3.6 g/dL (2.4-3.5); Glucose 92 mg/dL (83-110); Potassium 3.2 mmol/L (3.5-5.1); Protein, Total 7.4 g/dL (5.8-8.1); Sodium 141 mmol/L (136-145)
[2022-11-24] MEDS ORDERED: Acetaminophen 500 MG TAB ONE (07:55)
[2022-11-24] MEDS ORDERED: Ketorolac Tromethamine 30 MG/ML VIAL ONE (07:55)
[2022-11-24] MEDS ORDERED: Magnesium 2 GM/50 ML BAG (IN WATER) ONE (08:14)
[2022-11-24] MEDS ORDERED: predniSONE 20 MG TAB ONE (08:14)
[2022-11-24] MEDS ORDERED: Potassium Chloride 20 MEQ TAB ONE (08:14)
[2022-11-24] MEDS ORDERED: Potassium Bicarbonate/Cit Ac 20 MEQ TAB PO SCH (08:45)
[2022-11-24] MEDS ORDERED: Ipratropium/Albuterol 3 ML NEB ONE (08:49)
== END 2022-11-24 12:28 | disposition home or self-care (01) ==
LOC: ERS 06:02
DX: J44.9 Chronic obstructive pulmonary disease, unspecified (principal); D72.819 Decreased white blood cell count, unspecified; I11.0 Hypertensive heart disease with heart failure; I50.9 Heart failure, unspecified; E78.00 Pure hypercholesterolemia, unspecified
CPT/HCPCS: 36415; 71045; 80053; 82805; 83880; 84484; 85025; 93005; 94640; 96365; 96375; J1885; J3475; J7512; J7620

== ENCOUNTER 2022-12-13 01:34 | Inpatient (IN) | payer MEDICARE ==
[2022-12-13] MEDS ORDERED: Nitroglycerin 50 MG/250 ML BOT 250 ML ONE (01:50)
[2022-12-13 02:04] LABS: Actual Bicarbonate (HCO3v) 30.6 mEq/L (22-28); Analyzer IN Cardio ER; Base Excess 1.5 mEq/L (-2.0 to +3.0); Chloride (VBG) 103 mmol/L (98-106); Hematocrit-VBG 33 % (36.0-47.0); Hemoglobin (Hb) 11.2 g/dL (11.7-16.1); Potassium (VBG) 3.68 mmol/L (3.70-5.30); Sodium 139.1 mmol/L (133-146); pH (venous) 7.232 (7.32-7.43)
[2022-12-13] MEDS ORDERED: Magnesium 2 GM/50 ML BAG (IN WATER) ONE (02:10)
[2022-12-13] MEDS ORDERED: methylPREDNISolone Sod Succ/PF 125 MG/2 ML VIAL ONE (02:10)
[2022-12-13] MEDS ORDERED: Albuterol 2.5 MG/0.5 ML NEB ONE (02:14)
[2022-12-13] MEDS ORDERED: Ipratropium Bromide 2.5 ml Neb ONE (02:15)
[2022-12-13 02:40] LABS: Band 1 % (5-11); Eosinophils 1 % (0-10); Hypochromia SLIGHT = 6-15 cells (100X) (0-5/hpf); Lymphocytes 64 % (21-51); MDiff Complete? YES; Macrocytosis SLIGHT = 6-15 cells (100X) (0-5/hpf); Monocytes 2 % (0-10); Neutrophil 16 % (42-75); Platelet Morphology Comment Appears Adequate; Reactive Lymphocytes 16 % (0-10)
[2022-12-13 02:43] LABS: Hemoglobin 10.4 g/dL (12.0-16.0); Mean Corpuscular HGB CONC 33.5 g/dL (32.0-36.0); Mean Corpuscular Hemoglobin 36.9 pg (27.0-31.0); Mean Platelet Volume 6.3 fL (7.4-10.4); Platelet Count 359 10x3/uL (130-400); RBC Distribution Width 11.8 % (11.5-14.5); Red Blood Cell (RBC) Count 2.82 mill/uL (4.20-5.40); White Blood Cell (WBC) Count 8.5 10x3/uL (4.8-10.8)
[2022-12-13 02:47] LABS: ALT (SGPT) 26 U/L (8-55); AST (SGOT) 37 U/L (5-34); Albumin 3.7 g/dL (3.4-4.8); Alkaline Phosphatase 136 U/L (40-110); Anion Gap 14 mmol/L (10-20); BUN (Urea Nitrogen) 9 mg/dL (9.8-20.1); Bilirubin, Total 0.4 mg/dL (0.2-1.2); Calc. Creatinine Clearance 0 mL/min (70-130); Calcium 8.9 mg/dL (7.8-10.44); Carbon Dioxide 29 mmol/L (23-31); Chloride 104 mmol/L (98-107); Estimated GFR 89; Globulin 3.6 g/dL (2.4-3.5); Glucose 161 mg/dL (83-110); Potassium 3.8 mmol/L (3.5-5.1); Protein, Total 7.3 g/dL (5.8-8.1); Sodium 143 mmol/L (136-145)
[2022-12-13] MEDS ORDERED: Cefepime 2 GM VIAL ONE (03:15)
[2022-12-13] MEDS ORDERED: Ipratropium/Albuterol 3 ML NEB NEB PRN (03:44)
[2022-12-13] MEDS ORDERED: cefTRIAXone\\ROCEPHIN 1 GM in Sodium Chloride 0.9% 100 ML IVPB SCH (04:00)
[2022-12-13 05:19] LABS: SARS-CoV-2 NAA Rapid Test Not Detected (NotDetected)
[2022-12-13] MEDS: methylPREDNISolone Sod Succ 40 MG VIAL IVP SCH ×3 (06:01→21:44)
[2022-12-13] MEDS: Azithromycin 500 MG in Sodium Chloride 0.9% 250 ML 250 ML IVPB SCH (06:01)
[2022-12-13 06:03] VITALS: BMI 16.0
[2022-12-13] MEDS: Ipratropium/Albuterol 3 ML NEB NEB SCH ×3 (06:42→19:23)
[2022-12-13 08:50] LABS: Actual Bicarbonate (HCO3v) 28.8 mEq/L (22-28); Base Excess 1.6 mEq/L (-2.0 to +3.0); Calcium, Ionized (venous) 1.07 mmol/L (1.16-1.32); Chloride (VBG) 102 mmol/L (98-106); Hematocrit-VBG 32 % (36.0-47.0); Potassium (VBG) 4.23 mmol/L (3.70-5.30); Sodium 142.9 mmol/L (133-146); pH (venous) 7.307 (7.32-7.43)
[2022-12-13 08:52] LABS: Anion Gap 19 mmol/L (10-20); BUN (Urea Nitrogen) 8 mg/dL (9.8-20.1); Calc. Creatinine Clearance 50 mL/min (70-130); Calcium 8.3 mg/dL (7.8-10.44); Carbon Dioxide 21 mmol/L (23-31); Chloride 107 mmol/L (98-107); Estimated GFR 92; Glucose 84 mg/dL (83-110); Sodium 143 mmol/L (136-145)
[2022-12-13 08:53] LABS: #Lymphocytes 0.6 thou/uL (1.20-3.40); #Monocytes 0.1 thou/uL (0.11-0.59); #Neutrophils 7.6 thou/uL (1.40-6.50); %Eosinophils 0.1 % (0.0-10.0); %Lymphocytes 7.2 % (21.0-51.0); %Monocytes 0.6 % (0.0-10.0); %Neutrophils 92.1 % (42.0-75.0); Hemoglobin 10.4 g/dL (12.0-16.0); Mean Corpuscular HGB CONC 33.3 g/dL (32.0-36.0); Mean Corpuscular Hemoglobin 36.7 pg (27.0-31.0); Mean Platelet Volume 6.4 fL (7.4-10.4); Platelet Count 304 10x3/uL (130-400); RBC Distribution Width 11.7 % (11.5-14.5); Red Blood Cell (RBC) Count 2.83 mill/uL (4.20-5.40); White Blood Cell (WBC) Count 8.3 10x3/uL (4.8-10.8)
[2022-12-13] MEDS: Famotidine/PF 20 mg/2ml Vial SLOW IVP SCH ×2 (09:01→21:39)
[2022-12-13] MEDS: Famotidine 20 MG TAB PO SCH ×2 (09:01→21:44)
[2022-12-13] MEDS: guaiFENesin ER 600 MG TAB PO SCH ×2 (09:01→21:44)
[2022-12-13] MEDS: Heparin 5,000 UNITS/ML VIAL SC SCH ×2 (09:01→21:44)
[2022-12-13 09:16] LABS: Troponin I 0.144 ng/mL (< 0.028)
[2022-12-13 09:32] LABS: Anion Gap 14 mmol/L (10-20); BUN (Urea Nitrogen) 8 mg/dL (9.8-20.1); Calc. Creatinine Clearance 46 mL/min (70-130); Calcium 8.2 mg/dL (7.8-10.44); Carbon Dioxide 28 mmol/L (23-31); Chloride 104 mmol/L (98-107); Estimated GFR 90; Glucose 120 mg/dL (83-110); Magnesium 2.3 mg/dL (1.6-2.6); Potassium 4.2 mmol/L (3.5-5.1); Sodium 142 mmol/L (136-145)
[2022-12-13] MEDS ORDERED: Aspirin 81 mg Enteric Coated Tablet PO SCH (12:15)
[2022-12-13 17:06] LABS: Legionella Urinary Ag Negative (Negative); Strep pneumo Urine Ag NEGATIVE (NEGATIVE)
[2022-12-13] MEDS: Cefepime 1 GM in Sodium Chloride 0.9% 100 ML IVPB SCH (17:09)
[2022-12-14] MEDS: Ipratropium/Albuterol 3 ML NEB NEB SCH ×4 (00:27→18:51)
[2022-12-14] MEDS: Cefepime 1 GM in Sodium Chloride 0.9% 100 ML IVPB SCH ×2 (02:51→15:01)
[2022-12-14] MEDS: Azithromycin 500 MG in Sodium Chloride 0.9% 250 ML 250 ML IVPB SCH (05:24)
[2022-12-14 05:55] LABS: #Monocytes 0.3 thou/uL (0.11-0.59); #Neutrophils 7.1 thou/uL (1.40-6.50); %Basophils 0.1 % (0.0-1.0); %Eosinophils 0.1 % (0.0-10.0); %Lymphocytes 12.1 % (21.0-51.0); %Monocytes 3.2 % (0.0-10.0); %Neutrophils 84.5 % (42.0-75.0); Hemoglobin 9.5 g/dL (12.0-16.0); Mean Corpuscular HGB CONC 33.8 g/dL (32.0-36.0); Mean Platelet Volume 6.9 fL (7.4-10.4); Platelet Count 289 10x3/uL (130-400); RBC Distribution Width 11.8 % (11.5-14.5); Red Blood Cell (RBC) Count 2.55 mill/uL (4.20-5.40); White Blood Cell (WBC) Count 8.4 10x3/uL (4.8-10.8)
[2022-12-14 06:16] LABS: Anion Gap 14 mmol/L (10-20); BUN (Urea Nitrogen) 13 mg/dL (9.8-20.1); Calc. Creatinine Clearance 52 mL/min (70-130); Calcium 8.2 mg/dL (7.8-10.44); Carbon Dioxide 27 mmol/L (23-31); Chloride 105 mmol/L (98-107); Estimated GFR 90; Glucose 114 mg/dL (83-110); Potassium 4.2 mmol/L (3.5-5.1); Sodium 142 mmol/L (136-145)
[2022-12-14 06:40] LABS: CKMB 3.8 ng/mL (0-6.6)
[2022-12-14] MEDS: Famotidine/PF 20 mg/2ml Vial SLOW IVP SCH ×2 (07:38→21:35)
[2022-12-14] MEDS: Famotidine 20 MG TAB PO SCH ×2 (08:43→21:07)
[2022-12-14] MEDS: guaiFENesin ER 600 MG TAB PO SCH ×2 (08:43→21:07)
[2022-12-14] MEDS: Aspirin 81 mg Enteric Coated Tablet PO SCH (08:43)
[2022-12-14] MEDS: methylPREDNISolone Sod Succ 40 MG VIAL IVP SCH ×2 (08:44→21:06)
[2022-12-14] MEDS: Heparin 5,000 UNITS/ML VIAL SC SCH ×2 (08:44→21:06)
[2022-12-15] MEDS: Ipratropium/Albuterol 3 ML NEB NEB SCH ×4 (00:32→18:51)
[2022-12-15] MEDS: Cefepime 1 GM in Sodium Chloride 0.9% 100 ML IVPB SCH ×2 (04:03→16:20)
[2022-12-15] MEDS: Azithromycin 500 MG in Sodium Chloride 0.9% 250 ML 250 ML IVPB SCH (05:16)
[2022-12-15 05:43] LABS: #Lymphocytes 0.9 thou/uL (1.20-3.40); #Monocytes 0.2 thou/uL (0.11-0.59); #Neutrophils 6.4 thou/uL (1.40-6.50); %Basophils 0.2 % (0.0-1.0); %Eosinophils 0.1 % (0.0-10.0); %Lymphocytes 12.3 % (21.0-51.0); %Monocytes 2.1 % (0.0-10.0); %Neutrophils 85.4 % (42.0-75.0); Hemoglobin 9.3 g/dL (12.0-16.0); Mean Corpuscular HGB CONC 33.4 g/dL (32.0-36.0); Mean Corpuscular Hemoglobin 36.7 pg (27.0-31.0); Platelet Count 263 10x3/uL (130-400); RBC Distribution Width 11.9 % (11.5-14.5); Red Blood Cell (RBC) Count 2.53 mill/uL (4.20-5.40); White Blood Cell (WBC) Count 7.5 10x3/uL (4.8-10.8)
[2022-12-15 06:05] LABS: ALT (SGPT) 21 U/L (8-55); AST (SGOT) 25 U/L (5-34); Alkaline Phosphatase 95 U/L (40-110); Anion Gap 12 mmol/L (10-20); BUN (Urea Nitrogen) 17 mg/dL (9.8-20.1); Bilirubin, Total 0.3 mg/dL (0.2-1.2); Calc. Creatinine Clearance 54 mL/min (70-130); Calcium 8.2 mg/dL (7.8-10.44); Carbon Dioxide 29 mmol/L (23-31); Chloride 106 mmol/L (98-107); Estimated GFR 91; Globulin 2.9 g/dL (2.4-3.5); Glucose 116 mg/dL (83-110); Potassium 4.6 mmol/L (3.5-5.1); Protein, Total 5.9 g/dL (5.8-8.1); Sodium 142 mmol/L (136-145)
[2022-12-15] MEDS: Famotidine 20 MG TAB PO SCH (10:11)
[2022-12-15] MEDS: Aspirin 81 mg Enteric Coated Tablet PO SCH (10:11)
[2022-12-15] MEDS: guaiFENesin ER 600 MG TAB PO SCH ×2 (10:11→19:58)
[2022-12-15] MEDS: methylPREDNISolone Sod Succ 40 MG VIAL IVP SCH (10:11)
[2022-12-15] MEDS: Heparin 5,000 UNITS/ML VIAL SC SCH ×2 (10:17→19:58)
[2022-12-15] MEDS: Famotidine/PF 20 mg/2ml Vial SLOW IVP SCH (10:20)
[2022-12-16] MEDS: Ipratropium/Albuterol 3 ML NEB NEB SCH ×4 (00:23→19:24)
[2022-12-16] MEDS: Cefepime 1 GM in Sodium Chloride 0.9% 100 ML IVPB SCH ×2 (02:25→15:45)
[2022-12-16 05:39] LABS: Hemoglobin 9.1 g/dL (12.0-16.0); Mean Corpuscular HGB CONC 33.6 g/dL (32.0-36.0); Mean Corpuscular Hemoglobin 36.9 pg (27.0-31.0); Mean Platelet Volume 7.3 fL (7.4-10.4); Platelet Count 269 10x3/uL (130-400); RBC Distribution Width 11.8 % (11.5-14.5); Red Blood Cell (RBC) Count 2.48 mill/uL (4.20-5.40); White Blood Cell (WBC) Count 7.6 10x3/uL (4.8-10.8)
[2022-12-16 05:48] LABS: ALT (SGPT) 16 U/L (8-55); AST (SGOT) 16 U/L (5-34); Albumin 2.9 g/dL (3.4-4.8); Alkaline Phosphatase 82 U/L (40-110); Anion Gap 10 mmol/L (10-20); BUN (Urea Nitrogen) 17 mg/dL (9.8-20.1); Bilirubin, Total 0.3 mg/dL (0.2-1.2); Calc. Creatinine Clearance 50 mL/min (70-130); Calcium 8.1 mg/dL (7.8-10.44); Carbon Dioxide 30 mmol/L (23-31); Chloride 105 mmol/L (98-107); Estimated GFR 90; Globulin 2.8 g/dL (2.4-3.5); Glucose 89 mg/dL (83-110); Potassium 3.9 mmol/L (3.5-5.1); Protein, Total 5.7 g/dL (5.8-8.1); Sodium 141 mmol/L (136-145)
[2022-12-16] MEDS ORDERED: predniSONE 20 MG TAB PO SCH (08:00)
[2022-12-16] MEDS ORDERED: Azithromycin 250 MG TAB PO SCH (09:00)
[2022-12-16] MEDS ORDERED: Famotidine 20 MG TAB PO SCH (09:00)
[2022-12-16] MEDS: guaiFENesin ER 600 MG TAB PO SCH (09:02)
[2022-12-16] MEDS: Aspirin 81 mg Enteric Coated Tablet PO SCH (09:02)
[2022-12-16] MEDS: Heparin 5,000 UNITS/ML VIAL SC SCH (09:04)
[2022-12-16 19:29] VITALS: BP 155/76; TEMP 97.7
== END 2022-12-16 21:15 | disposition home or self-care (01) | DRG 193 ==
LOC: ERS 01:34 → IMCU/EMU 05:09 → MSONC 12-14 00:23
PROVIDERS: ADMIT Hospitalist; ATTEND Hospitalist
PROC: 5A09357 Assistance with Respiratory Ventilation, Less than 24 Consecutive Hours, Continuous Positive Airway Pressure (ICD-10-PCS; principal; 2022-12-13)
DX: J18.9 Pneumonia, unspecified organism (principal); J96.21 Acute and chronic respiratory failure with hypoxia; J96.22 Acute and chronic respiratory failure with hypercapnia; J44.1 Chronic obstructive pulmonary disease with (acute) exacerbation; J44.0 Chronic obstructive pulmonary disease with (acute) lower respiratory infection; R64 Cachexia; Z68.1 Body mass index [BMI] 19.9 or less, adult; I27.20 Pulmonary hypertension, unspecified; D64.9 Anemia, unspecified; H91.90 Unspecified hearing loss, unspecified ear; Z20.822 Contact with and (suspected) exposure to COVID-19; I10 Essential (primary) hypertension; E78.5 Hyperlipidemia, unspecified; Z99.81 Dependence on supplemental oxygen; Z79.51 Long term (current) use of inhaled steroids; Z79.899 Other long term (current) drug therapy
CPT/HCPCS: 36415; 36416; 71045; 80048; 80053; 82553; 82805; 83735; 83880; 84145; 84484; 85025; 85027; 86140; 87040; 87086; 87449; 87899; 93005; 93306; 94640; 94660; 96365; 96367; 96375; J0456; J0692; J1644; J2920; J2930; J3475; J3490; J7050; J7512; J7611; J7620